=== PATIENT | female | born 1980 | race Caucasian/White ===

== ENCOUNTER 2016-09-15 14:37 | Emergency (ER) | payer OTHER, MEDICAID ==
[2016-09-15 15:01] VITALS: BP 110/76
--- NOTE | 2016-09-15 15:10 | EDM.PDOC ---
ED HPI Trauma - General Chief Complaint: Upper Extremity Injury/Pain Stated Complaint: JAMMED RT MIDDLE FINGER Time Seen by Provider: 09/15/16 15:03 Source: Reports: Patient, RN notes reviewed History Limitations: Reports: No limitations - History of Present Illness INITIAL COMMENTS - FREE TEXT/NARRATIVE: 36-year-old female presents emergency department for a complaint of pain to digit #3 right hand,she injured her finger at work unclear mechanism of action she is having difficulty with full laxation appreciates a mild amount of edema over the PIP joint Allergies/ADRs: Allergies varenicline tartrate [From Chantix] Adverse Reaction (Verified 07/08/16 06:14) Other gives patinet nightmares Home Medications: Ambulatory Orders NK [No Known Home Meds] 10/23/13 [Confirmed 07/08/16] Past Medical History HEENT History: Reports: Impaired vision Gastrointestinal History: Reports: Cholelithiasis 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 Social & Family History - Family History Family Medical History: Unobtainable - Tobacco Use Smoking Status *Q: Current Every Day Smoker Years of Tobacco use: 15 Packs/Tins Daily: 1 Used Tobacco, but Quit: No Month Tobacco Last Used: November Hand Smoke Exposure: No - Caffeine Use Caffeine Use: Reports: None - Alcohol Use Days Per Week of Alcohol Use: 0 - Recreational Drug Use Recreational Drug Use: No Review of Systems - Review of Systems Review Of Systems: See Below Musculoskeletal: Reports: joint pain (right digit #4 pain) Trauma Exam - Physical Exam Exam: See Below Text/Narrative:: examination right hand full range of motion of the wrist radial pulses 2+ to do appreciate some deformity and edema over the PIP joint digit #3 right hand she cannot fully flex the digit has full range of extension Course - Vital Signs Last Recorded V/S: Last Vital Signs Temp 98.4 F 09/15/16 15:00 Pulse 70 09/15/16 15:00 Resp 14 09/15/16 15:00 BP 110/76 09/15/16 15:00 Pulse Ox 96 09/15/16 15:00 - Orders/Labs/Meds Orders: Active Orders 24 hr Category Date Time Status Fingers Third Digit Rt F7 [CR] Stat Exams 09/15/16 15:13 Taken Departure - Departure Time of Disposition: 16:04 Disposition: Home, Self-Care 01 Condition: good Clinical Impression: Sprain of right middle finger Qualifiers: Encounter type: initial encounter Sprain of finger site: interphalangeal joint Qualified Code(s): S63.632A - Sprain of interphalangeal joint of right middle finger, initial encounter Forms: ED Department Discharge Additional Instructions: continue ajit taping until pain free, use Tylenol or Motrin as needed for pain control, Please followup with your primary care provider in 3-5 days if not better, please call return to the emergency department with worsening of symptoms. - My Orders Last 24 Hours: My Active Orders 09/15/16 15:13 Fingers Third Digit Rt F7 [CR] Stat - Assessment/Plan Last 24 Hours: My Active Orders 09/15/16 15:13 Fingers Third Digit Rt F7 [CR] Stat Plan: Assessment Acuity = acute Site and laterality = sprain digit #3 right hand PIP joint Etiology = secondary to trauma Manifestations = pain Location of injury = work Lab values = finger x-ray I did review films myself I cannot appreciate any acute process, the official read from radiology is pending Plan recommend Tylenol or Motrin as needed for pain control, Ajit taping followup with primary care 3-5 days no improvement Patient was in agreement with the plan all questions were answered, they were instructed to return to the emergency department or call for worsening symptoms. This note was dictated using basestone voice recognition software please call with any questions.
--- NOTE | 2016-09-17 08:50 | CR ---
Fingers Third Digit Rt F7 HISTORY: pain FINDINGS: No acute fracture or dislocation is identified. Bony architecture and joint spaces are preserved. Soft tissues are unremarkable. IMPRESSION: No acute right third finger abnormality identified.
== END 2016-09-15 16:09 | disposition home or self-care (01) ==
LOC: JP.ED 14:37
DX: S63.632A Sprain of interphalangeal joint of right middle finger, initial encounter (principal); F17.210 Nicotine dependence, cigarettes, uncomplicated; Z88.8 Allergy status to other drugs, medicaments and biological substances; Z90.49 Acquired absence of other specified parts of digestive tract; Z98.51 Tubal ligation status; Z98.890 Other specified postprocedural states; X58.XXXA Exposure to other specified factors, initial encounter
CPT/HCPCS: 73140-26-F7; 73140-F7; 99284

== ENCOUNTER 2016-11-15 10:03 | Observation (INO) | payer MEDICAID ==
[2016-11-15] MEDS ORDERED: Ondansetron 4 MG/2 ML SDV IVPUSH ONE ×2 (11:39→14:47)
[2016-11-15] MEDS ORDERED: HYDROmorphone 0.5 MG/0.5 ML Syringe IVPUSH ONE (11:39)
[2016-11-15] MEDS ORDERED: Sodium Chloride 0.9% 1,000 ML IV SCH ×2 (11:45→14:15)
[2016-11-15] MEDS ORDERED: HYDROmorphone 1 MG/ML Syringe IVPUSH ONE (13:57)
--- NOTE | 2016-11-15 13:58 | CR ---
Abdomen Series w Chest 1V HISTORY: Diarrhea, vomiting. COMPARISON: CT abdomen 08/15/2008 FINDINGS: Chest is clear. Cardiac size and pulmonary vessels normal. No effusions. Prior cholecystectomy. No bowel obstruction no free air. No suspicious calcifications. Impression: Negative chest and abdomen.
[2016-11-15] MEDS ORDERED: Sodium Chloride 0.9% 100 ML IV SCH (14:15)
[2016-11-15] MEDS ORDERED: Iopamidol 612 MG/ML 100 ML Bottle IV PRN (14:15)
[2016-11-15] MEDS ORDERED: Sodium Chloride 0.9% 10 ML Syringe FLUSH PRN ×2 (14:15→17:13)
--- NOTE | 2016-11-15 14:55 | CT ---
Abdomen Pelvis w Cont HISTORY: Abdominal pain on the right. Dose: Total DLP 584. COMPARISON: Prior CT scan 08/15/2008. FINDINGS: The liver is diffusely enlarged measuring 22 cm craniocaudal. The lower margin of the righ t hepatic lobe extends below the iliac crest which is a new finding from the previous CT scan. There is slightly inhomogeneous attenuation of the lower margin of the right hepatic lobe. No liver lesio ns seen. Prior cholecystectomy. There is some very mild nonspecific periportal edema. There is some borderline intra and extrahepatic bile duct dilatation however this may be normal for this patient i s postcholecystectomy. The spleen, pancreas, adrenal glands and abdominal aorta and kidneys appear normal. No bowel obstruc tion. The pelvis appears unremarkable. Impression: 1. Nonspecific hepatomegaly with some inhomogeneous attenuation to the lower margin of the right hep atic lobe. The hepatomegaly does appear to be a new finding from the prior CT scan of 2008. Consider nonspecific hepatitis. Would suggest follow-up CT scan in 4 months to reevaluate these findings. These findings were called to the emergency room physician at 2:45 PM hours
--- NOTE | 2016-11-15 15:13 | EDM.PDOC ---
[id number]: NAUSEA/ABD PAIN Time Seen by Provider: 11/15/16 10:40 Source of Information: Reports: Patient History Limitations: Reports: No Limitations - History of Present Illness INITIAL COMMENTS - FREE TEXT/NARRATIVE: Pt arrived with pain in upper abdomn and on the rt cva are. Onset: Sudden, Other (pt took a lexapro tab andit was after that that she developed acute pain in the upper abdoman and that has been persistent. ) Duration: Hour(s):, Getting Worse Location: Reports: Abdomen Associated Symptoms: Reports: No Other Symptoms, Other (pt has been having bms. 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: Musculoskeletal History: Reports: Back Pain, Chronic, Other (See Below) Other Musculoskeletal History: chronic knee pain Neurological History: Reports: Concussion, Migraines Psychiatric History: Reports: Anxiety - Infectious Disease History Infectious Disease History: Reports: Chicken Pox - Past Surgical History GI Surgical History: Reports: Cholecystectomy, Hernia Repair/Other Female Surgical History: Reports: Section, Tubal Ligation Musculoskeletal Surgical History: Reports: Arthroscopic Knee, Arthroscopic Procedure, Ganglion Cyst Social & Family History - Family History Family Medical History: Unobtainable - Tobacco Use Smoking Status *Q: Current Every Day Smoker Years of Tobacco use: 15 Packs/Tins Daily: 1 Used Tobacco, but Quit: No Month Tobacco Last Used: November Second Hand Smoke Exposure: No - Caffeine Use Caffeine Use: Reports: Soda - Alcohol Use Days Per Week of Alcohol Use: 0 - Recreational Drug Use Recreational Drug Use: No ED ROS GENERAL - Review of Systems Review Of Systems: See Below Constitutional: Reports: No Symptoms HEENT: Reports: No Symptoms Respiratory: Reports: No Symptoms Cardiovascular: Reports: No Symptoms Endocrine: Reports: No Symptoms GI/Abdominal: Reports: Abdominal Pain, Other ( this acutely started this am after she took a lexapro tab. ) : Reports: No Symptoms ED EXAM, GI/ABD - Physical Exam Exam: See Below Course - Vital Signs Last Recorded V/S: Last Vital Signs Temp 36.9 C 11/17/16 07:22 Pulse 50 L 11/17/16 07:22 Resp 16 11/17/16 07:22 BP 157/83 H 11/17/16 07:22 Pulse Ox 98 11/17/16 07:22 - Orders/Labs/Meds Labs: Laboratory Tests 11/15/16 11/15/16 11/15/16 Range/Units 11:02 11:44 11:44 WBC 8.1 (4.5-11.0) K/uL RBC 4.75 (3.30-5.50) M/uL Hgb 13.1 (12.0-15.0) g/dL Hct 39.7 (36.0-48.0) % MCV 84 (80-98) fL MCH 28 (27-31) pg MCHC 33 (32-36) % Plt Count 205 (150-400) K/uL Neut % (Auto) 62 (36-66) % Lymph % (Auto) 31 (24-44) % [place] % (Auto) 5 (2-6) % Eos % (Auto) 2 (2-4) % Baso % (Auto) 0 (0-1) % Sodium (140-148) mmol/L Potassium (3.6-5.2) mmol/L Chloride (100-108) mmol/L Carbon Dioxide (21-32) mmol/L Anion Gap (5.0-14.0) mmol/L BUN (7-18) mg/dL Creatinine (0.6-1.0) mg/dL Est Cr Clr Drug Dosing mL/min Estimated GFR (MDRD) (>60) Glucose (74-106) mg/dL Calcium (8.5-10.1) mg/dL Total Bilirubin (0.2-1.0) mg/dL AST (15-37) U/L ALT (12-78) U/L Alkaline Phosphatase (46-116) U/L C-Reactive Protein (0.0-0.3) mg/dL Total Protein (6.4-8.2) g/dL Albumin (3.4-5.0) g/dL Globulin (2.3-3.5) g/dL Albumin/Globulin Ratio (1.2-2.2) Lipase 154 (73-393) U/L Urine Color Yellow Urine Appearance Clear Urine pH 6.5 (4.5-8.0) Ur Specific [place] 1.010 (1.008-1.030) Urine Protein Negative (NEGATIVE) mg/dL Urine Glucose (UA) Normal (NEGATIVE) mg/dL Urine Ketones Negative (NEGATIVE) mg/dL Urine Occult Blood Negative (NEGATIVE) Urine Nitrite Negative (NEGATIVE) Urine Bilirubin Negative (NEGATIVE) Urine Urobilinogen Normal (NORMAL) mg/dL Ur Leukocyte Esterase Negative (NEGATIVE) Urine RBC 0-5 (0-5) Urine WBC 0-5 (0-5) Ur Epithelial Cells Few Amorphous Sediment Not seen Urine Bacteria Few Urine Mucus Not seen 11/15/16 11/15/16 Range/Units 11:44 13:59 WBC (4.5-11.0) K/uL RBC (3.30-5.50) M/uL Hgb (12.0-15.0) g/dL Hct (36.0-48.0) % MCV (80-98) fL MCH (27-31) pg MCHC (32-36) % Plt Count (150-400) K/uL Neut % (Auto) (36-66) % Lymph % (Auto) (24-44) % [place] % (Auto) (2-6) % Eos % (Auto) (2-4) % Baso % (Auto) (0-1) % Sodium 141 (140-148) mmol/L Potassium 4.2 (3.6-5.2) mmol/L Chloride 106 (100-108) mmol/L Carbon Dioxide 25 (21-32) mmol/L Anion Gap 9.8 (5.0-14.0) mmol/L BUN 7 (7-18) mg/dL Creatinine 0.7 (0.6-1.0) mg/dL Est Cr Clr Drug Dosing 93.68 mL/min Estimated GFR (MDRD) > 60 (>60) Glucose 95 (74-106) mg/dL Calcium 8.9 (8.5-10.1) mg/dL Total Bilirubin 0.5 (0.2-1.0) mg/dL AST 12 L (15-37) U/L ALT 12 (12-78) U/L Alkaline Phosphatase 63 (46-116) U/L C-Reactive Protein 0.26 (0.0-0.3) mg/dL Total Protein 6.9 (6.4-8.2) g/dL Albumin 3.8 (3.4-5.0) g/dL Globulin 3.1 (2.3-3.5) g/dL Albumin/Globulin Ratio 1.2 (1.2-2.2) Lipase (73-393) U/L Urine Color Urine Appearance Urine pH (4.5-8.0) Ur Specific [place] (1.008-1.030) Urine Protein (NEGATIVE) mg/dL Urine Glucose (UA) (NEGATIVE) mg/dL Urine Ketones (NEGATIVE) mg/dL Urine Occult Blood (NEGATIVE) Urine Nitrite (NEGATIVE) Urine Bilirubin (NEGATIVE) Urine Urobilinogen (NORMAL) mg/dL Ur Leukocyte Esterase (NEGATIVE) Urine RBC (0-5) Urine WBC (0-5) Ur Epithelial Cells Amorphous Sediment Urine Bacteria Urine Mucus Meds: Medications Discontinued Medications Generic Name Dose Route Start Last Admin Trade Name Freq PRN Reason Stop Dose Admin Acetaminophen 650 mg 11/15/16 17:13 11/17/16 10:33 Tylenol PO 650 mg Q4H PRN Administration Pain (Mild 1-3)/fever Bupivacaine HCl Confirm 11/16/16 08:45 11/16/16 13:30 Marcaine 0.5% Administered 11/16/16 08:46 3.5 ml Dose Administration 50 ml .ROUTE .STK-MED ONE Al Hydroxide/Mg Hydroxide 15 0 ml 11/15/16 15:55 11/15/16 16:24 ml/ Lidocaine HCl 15 ml PO 11/15/16 15:56 15 ml ONETIME ONE Administration Fentanyl Confirm 11/16/16 11:18 Sublimaze Administered 11/16/16 11:19 Dose 100 mcg .ROUTE .STK-MED ONE Hydromorphone HCl 0.5 mg 11/15/16 11:39 11/15/16 12:08 Dilaudid IVPUSH 11/15/16 11:40 0.5 mg ONETIME ONE Administration Hydromorphone HCl 1 mg 11/15/16 13:57 11/15/16 14:03 Dilaudid IVPUSH 11/15/16 13:58 1 mg ONETIME ONE Administration Hydromorphone HCl 0.5 mg 11/15/16 17:13 11/16/16 12:13 Dilaudid IVPUSH 0.5 mg Q3H PRN Administration Pain Hydromorphone HCl 0 mg 11/16/16 12:29 11/16/16 12:38 Dilaudid 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 In Ns 30 Ml IV 15 mg ASDIRECTED PRN Administration 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 CONTROL Protocol Sodium Chloride 1,000 mls @ 999 mls/hr 11/15/16 11:45 11/15/16 12:03 Normal Saline IV 999 mls/hr ASDIRECTED CHANI Administration Sodium Chloride 100 mls @ 3.5 mls/sec 11/15/16 14:15 11/15/16 14:29 Normal Saline IV 11/15/16 14:16 3 mls/sec ASDIRECTED CHANI Administration Sodium Chloride 1,000 mls @ 500 mls/hr 11/15/16 14:15 11/15/16 14:45 Normal Saline IV 500 mls/hr ASDIRECTED CHANI Administration Sodium Chloride 1,000 mls @ 125 mls/hr 11/15/16 17:13 11/17/16 07:37 Normal Saline IV 125 mls/hr ASDIRECTED CHANI Administration Iopamidol 100 ml 11/15/16 14:15 11/15/16 14:29 Isovue-300 (61%) IV 11/16/16 14:16 100 ml . DIRECTED PRN Administration RADIOLOGY EXAM Lidocaine/Epinephrine Confirm 11/16/16 08:45 11/16/16 13:30 Xylocaine 1% With Epinephrine 1:100,000 Administered 11/16/16 08:46 3.5 ml Dose Administration 50 ml .ROUTE .STK-MED ONE Lorazepam 1 mg 11/16/16 14:51 11/16/16 15:03 Ativan IVPUSH 11/16/16 14:52 1 mg ONETIME ONE Administration Lorazepam 0.5 - 1 mg 11/16/16 14:51 11/16/16 23:32 Ativan IVPUSH 1 mg Q4H PRN Administration Nausea/Vomiting Metoclopramide HCl 10 mg 11/16/16 20:00 11/17/16 07:31 Reglan IVPUSH 10 mg Q6H CHANI Administration Midazolam HCl Confirm 11/16/16 11:19 Versed 1 Mg/Ml Administered 11/16/16 11:20 Dose 2 mg .ROUTE .STK-MED ONE Naloxone HCl 0.1 mg 11/16/16 12:29 Narcan IV ASDIRECTED PRN decreased respiratory rate Ondansetron HCl 4 mg 11/15/16 11:39 11/15/16 12:04 Zofran IVPUSH 11/15/16 11:40 4 mg ONETIME ONE Administration Ondansetron HCl 4 mg 11/15/16 14:47 11/15/16 14:59 Zofran IVPUSH 11/15/16 14:48 4 mg ONETIME ONE Administration Ondansetron HCl 4 mg 11/15/16 17:13 11/16/16 19:14 Zofran IV 4 mg Q4H PRN Administration Nausea/Vomiting Oxycodone HCl 5 mg 11/15/16 17:13 11/17/16 10:33 Oxycodone PO 5 mg Q4H PRN Administration Pain (moderate 4-6) Pantoprazole Sodium 40 mg 11/15/16 15:55 11/15/16 16:24 Protonix Iv IVPUSH 11/15/16 15:56 40 mg ONETIME ONE Administration Pantoprazole Sodium 40 mg 11/16/16 04:00 11/17/16 03:33 Protonix Iv IVPUSH 40 mg Q12H CHANI Administration Propofol Confirm 11/16/16 11:18 Diprivan 20 Ml Administered 11/16/16 11:19 Dose 200 mg .ROUTE .STK-MED ONE Sodium Chloride 10 ml 11/15/16 14:15 11/15/16 14:29 Saline Flush FLUSH 11/15/16 23:00 10 ml ASDIRECTED PRN Administration Keep Vein Open Sodium Chloride 10 ml 11/15/16 17:13 Saline Flush FLUSH ASDIRECTED PRN Keep Vein Open Departure - Departure Time of Disposition: 07:25 Disposition: Admitted As Inpatient 68 Clinical Impression: Abdominal pain - Discharge Information
[2016-11-15] MEDS ORDERED: Pantoprazole 40 MG Vial IVPUSH ONE (15:55)
[2016-11-15] MEDS ORDERED: Alum Hydrox/Mag Hydrox/Simeth 15 ML, Lidocaine 2% 15 ML PO ONE ×2 (15:55)
--- NOTE | 2016-11-15 16:44 | PCM.HP ---
H&P History of Present Illness - General Date of Service: 11/15/16 Admit Problem/Dx: Source of Information: Patient, Family, Provider, RN Notes Reviewed History Limitations: Reports: No Limitations - History of Present Illness Initial Comments - Free Text/Narative: This patient is a 36-year-old woman who is admitted to observation status for further evaluation and management of right upper quadrant abdominal pain. She felt well until this morning when she noted abrupt onset of moderate to severe pain occurring in the right upper quadrant, pain is described as an intense ache that does not radiate. She noted no significant precipitating or relieving factors. Evaluation in the emergency department vital signs are stable and she is afebrile. CT scan of the abdomen was obtained and other than benign liver enlargement no other significant abnormalities were identified. Pain is better controlled after having received IV narcotics in the emergency department. 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: Reports: Musculoskeletal History: Reports: Back Pain, Chronic, Other (See Below) Other Musculoskeletal History: chronic knee pain Neurological History: Reports: Concussion, Migraines Psychiatric History: Reports: Anxiety - Infectious Disease History Infectious Disease History: Reports: Chicken Pox - Past Surgical History GI Surgical History: Reports: Cholecystectomy, Hernia Repair/Other Female Surgical History: Reports: Section, Tubal Ligation Musculoskeletal Surgical History: Reports: Arthroscopic Knee, Arthroscopic Procedure, Ganglion Cyst Social & Family History - Family History Family Medical History: Unobtainable - Tobacco Use Smoking Status *Q: Current Every Day Smoker Years of Tobacco use: 15 Packs/Tins Daily: 1 Used Tobacco, but Quit: No Month Tobacco Last Used: November Second Hand Smoke Exposure: No - Caffeine Use Caffeine Use: Reports: Soda - Alcohol Use Days Per Week of Alcohol Use: 0 - Recreational Drug Use Recreational Drug Use: No H&P Review of Systems - Review of Systems: Review Of Systems: See Below General: Reports: No Symptoms HEENT: Reports: No Symptoms Pulmonary: Reports: No Symptoms Cardiovascular: Reports: No Symptoms Gastrointestinal: Reports: Abdominal Pain, Nausea, Vomiting. Denies: Black Stool, Bloody Stool, Constipation, Diarrhea, Decreased Appetite, Difficulty Swallowing, Distension Genitourinary: Reports: No Symptoms Musculoskeletal: Reports: No Symptoms Skin: Reports: No Symptoms Psychiatric: Reports: No Symptoms Neurological: Reports: No Symptoms Hematologic/Lymphatic: Reports: No Symptoms Immunologic: Reports: No Symptoms Exam - Exam Exam: See Below - Vital Signs Vital Signs: Last Vital Signs Temp 97.5 F 11/15/16 14:58 Pulse 55 L 11/15/16 14:58 Resp 16 11/15/16 14:58 BP 124/58 L 11/15/16 14:58 Pulse Ox 98 11/15/16 14:58 Weight: 145 lb - Exam Quality Assessment: No: Supplemental Oxygen, DVT Prophylaxis General: Alert, Oriented, Cooperative, Mild Distress HEENT: Conjunctiva Clear, EOMI, Hearing Intact, Mucosa Moist & [place], Nares Patent, Normal Nasal Septum, Posterior Pharynx Clear, Pupils Equal, Pupils Reactive Neck: Supple, Trachea Midline, +2 Carotid Pulse wo Bruit Lungs: Clear to Auscultation, Normal Respiratory Effort Cardiovascular: Regular Rate, Regular Rhythm, Normal S1, Normal S2. No: Systolic Murmur, Diastolic Murmur Abdomen: Normal Bowel Sounds, Soft, Tenderness. No: Organomegaly, Peritoneal Signs, Distention, Guarding, Rigidity, Rebound Back Exam: Normal Inspection, Full Range of Motion, NT Extremities: 3, Normal Inspection, 10 Skin: Warm, Dry, Intact Neurological: Cranial Nerves Intact, Strength Equal Bilateral, Normal Speech, Normal Tone, Sensation Intact. No: Focal Deficit Neuro Extensive - Mental Status: Alert, Oriented x3, Normal Mood/Affect, Normal Cognition, Memory Intact - Patient Data Lab Results last 24 hrs: Laboratory Results - last 24 hr 11/15/16 11/15/16 11/15/16 Range/Units 11:02 11:44 11:44 WBC 8.1 (4.5-11.0) K/uL RBC 4.75 (3.30-5.50) M/uL Hgb 13.1 (12.0-15.0) g/dL Hct 39.7 (36.0-48.0) % MCV 84 (80-98) fL MCH 28 (27-31) pg MCHC 33 (32-36) % Plt Count 205 (150-400) K/uL Neut % (Auto) 62 (36-66) % Lymph % (Auto) 31 (24-44) % [place] % (Auto) 5 (2-6) % Eos % (Auto) 2 (2-4) % Baso % (Auto) 0 (0-1) % Sodium (140-148) mmol/L Potassium (3.6-5.2) mmol/L Chloride (100-108) mmol/L Carbon Dioxide (21-32) mmol/L Anion Gap (5.0-14.0) mmol/L BUN (7-18) mg/dL Creatinine (0.6-1.0) mg/dL Est Cr Clr Drug Dosing mL/min Estimated GFR (MDRD) (>60) Glucose (74-106) mg/dL Calcium (8.5-10.1) mg/dL Total Bilirubin (0.2-1.0) mg/dL AST (15-37) U/L ALT (12-78) U/L Alkaline Phosphatase (46-116) U/L C-Reactive Protein (0.0-0.3) mg/dL Total Protein (6.4-8.2) g/dL Albumin (3.4-5.0) g/dL Globulin (2.3-3.5) g/dL Albumin/Globulin Ratio (1.2-2.2) Lipase 154 (73-393) U/L Urine Color Yellow Urine Appearance Clear Urine pH 6.5 (4.5-8.0) Ur Specific [place] 1.010 (1.008-1.030) Urine Protein Negative (NEGATIVE) mg/dL Urine Glucose (UA) Normal (NEGATIVE) mg/dL Urine Ketones Negative (NEGATIVE) mg/dL Urine Occult Blood Negative (NEGATIVE) Urine Nitrite Negative (NEGATIVE) Urine Bilirubin Negative (NEGATIVE) Urine Urobilinogen Normal (NORMAL) mg/dL Ur Leukocyte Esterase Negative (NEGATIVE) Urine RBC 0-5 (0-5) Urine WBC 0-5 (0-5) Ur Epithelial Cells Few Amorphous Sediment Not seen Urine Bacteria Few Urine Mucus Not seen 11/15/16 11/15/16 Range/Units 11:44 13:59 WBC (4.5-11.0) K/uL RBC (3.30-5.50) M/uL Hgb (12.0-15.0) g/dL Hct (36.0-48.0) % MCV (80-98) fL MCH (27-31) pg MCHC (32-36) % Plt Count (150-400) K/uL Neut % (Auto) (36-66) % Lymph % (Auto) (24-44) % [place] % (Auto) (2-6) % Eos % (Auto) (2-4) % Baso % (Auto) (0-1) % Sodium 141 (140-148) mmol/L Potassium 4.2 (3.6-5.2) mmol/L Chloride 106 (100-108) mmol/L Carbon Dioxide 25 (21-32) mmol/L Anion Gap 9.8 (5.0-14.0) mmol/L BUN 7 (7-18) mg/dL Creatinine 0.7 (0.6-1.0) mg/dL Est Cr Clr Drug Dosing 93.68 mL/min Estimated GFR (MDRD) > 60 (>60) Glucose 95 (74-106) mg/dL Calcium 8.9 (8.5-10.1) mg/dL Total Bilirubin 0.5 (0.2-1.0) mg/dL AST 12 L (15-37) U/L ALT 12 (12-78) U/L Alkaline Phosphatase 63 (46-116) U/L C-Reactive Protein 0.26 (0.0-0.3) mg/dL Total Protein 6.9 (6.4-8.2) g/dL Albumin 3.8 (3.4-5.0) g/dL Globulin 3.1 (2.3-3.5) g/dL Albumin/Globulin Ratio 1.2 (1.2-2.2) Lipase (73-393) U/L Urine Color Urine Appearance Urine pH (4.5-8.0) Ur Specific [place] (1.008-1.030) Urine Protein (NEGATIVE) mg/dL Urine Glucose (UA) (NEGATIVE) mg/dL Urine Ketones (NEGATIVE) mg/dL Urine Occult Blood (NEGATIVE) Urine Nitrite (NEGATIVE) Urine Bilirubin (NEGATIVE) Urine Urobilinogen (NORMAL) mg/dL Ur Leukocyte Esterase (NEGATIVE) Urine RBC (0-5) Urine WBC (0-5) Ur Epithelial Cells Amorphous Sediment Urine Bacteria Urine Mucus Result Diagrams: 11/15/16 11:44 11/15/16 11:44 *Q Meaningful Use (ADM) - VTE *Q VTE Criteria *Q: - VTE Risk Assess *Q Each Risk Factor Represents 1 Point: None Total Score 1 Point Risk Factors: 0 Each Risk Factor Represents 2 Points: None Total Score 2 Point Risk Factors: 0 Each Risk Factor Represents 3 Points: None Total Score 3 Point Risk Factors: 0 Each Risk Factor Represents 5 Points: None Total Score 5 Point Risk Factors: 0 Venous Thromboembolism Risk Factor Score *Q: 0 - Stroke *Q Stroke Criteria *Q: - AMI *Q AMI Criteria *Q: Problem List Initiated/Reviewed/Updated: Yes Orders Last 24hrs: Active Orders 24 hr Category Date Time Status Patient Status Manage Transfer [TRANSFER] Routine ADT 11/15/16 16:26 Ordered Iopamidol [Isovue-300 (61%)] Med 11/15/16 14:15 Active 100 ml IV . DIRECTED PRN Sodium Chloride 0.9% [Normal Saline] 1,000 ml Med 11/15/16 11:45 Active IV ASDIRECTED Sodium Chloride 0.9% [Normal Saline] 1,000 ml Med 11/15/16 14:15 Active IV ASDIRECTED Sodium Chloride 0.9% [Saline Flush] Med 11/15/16 14:15 Active 10 ml FLUSH ASDIRECTED PRN Resuscitation Status Routine Resus Stat 11/15/16 16:28 Ordered Medication Orders Sodium Chloride (Normal Saline) 1,000 mls @ 999 mls/hr IV ASDIRECTED [facility] Last Admin: 11/15/16 12:03 Dose: 999 mls/hr Sodium Chloride (Normal Saline) 1,000 mls @ 500 mls/hr IV ASDIRECTED [facility] Last Admin: 11/15/16 14:45 Dose: 500 mls/hr Iopamidol (Isovue-300 (61%)) 100 ml IV . DIRECTED PRN PRN Reason: RADIOLOGY EXAM Stop: 11/16/16 14:16 Last Admin: 11/15/16 14:29 Dose: 100 ml Sodium Chloride (Saline Flush) 10 ml FLUSH ASDIRECTED PRN PRN Reason: Keep Vein Open Stop: 11/15/16 23:00 Last Admin: 11/15/16 14:29 Dose: 10 ml Assessment/Plan Comment:: ASSESSMENT AND PLAN RIGHT UPPER QUADRANT ABDOMINAL PAIN-abrupt onset of pain this morning of moderate to severe intensity. Evaluation including laboratory studies and CT scan are unremarkable for specific etiology. She has had associated nausea and vomiting. Status post cholecystectomy several years ago. -Antiemetic therapy and pain medication as needed -Protonix orally milligrams IV twice daily -N.p.o. -Consult Dr. Barron for EGD in the a.m. MAINTENANCE ISSUES -DVT prophylaxis; not required -GI prophylaxis; Protonix as above -Villalba catheter; not indicated -Nutrition; n.p.o. -Nicotinic dependence; 21 mg nicotinic patch CODE STATUS-FULL CODE ADMISSION STATUS-this patient will be admitted to observation status, expect no more than a one night hospital stay for evaluation and management of problems as outlined above. DISPOSITION-anticipate discharge to home after the hospital stay. PRIMARY CARE PROVIDER-
[2016-11-15] MEDS: Sodium Chloride 0.9% 1,000 ML IV SCH (17:34)
[2016-11-15] MEDS: Acetaminophen 325 MG Tab PO PRN (17:34)
[2016-11-15] MEDS: oxyCODONE 5 MG Tab PO PRN ×2 (17:34→21:23)
[2016-11-15] MEDS: HYDROmorphone 0.5 MG/0.5 ML Syringe IVPUSH PRN ×2 (18:12→21:23)
[2016-11-15] MEDS: Ondansetron 4 MG/2 ML SDV IV PRN (19:22)
[2016-11-16] MEDS: Acetaminophen 325 MG Tab PO PRN ×2 (01:36→07:09)
[2016-11-16] MEDS: HYDROmorphone 0.5 MG/0.5 ML Syringe IVPUSH PRN ×4 (01:36→12:13)
[2016-11-16] MEDS: oxyCODONE 5 MG Tab PO PRN ×2 (01:36→07:08)
[2016-11-16] MEDS: Sodium Chloride 0.9% 1,000 ML IV SCH ×4 (01:38→23:25)
[2016-11-16] MEDS: Pantoprazole 40 MG Vial IVPUSH SCH ×2 (05:19→17:36)
[2016-11-16] MEDS: Ondansetron 4 MG/2 ML SDV IV PRN ×3 (07:08→19:14)
--- NOTE | 2016-11-16 08:17 | PCM.CONS ---
H&P History of Present Illness - General Admit Problem/Dx: Source of Information: Patient History Limitations: Reports: No Limitations - History of Present Illness Initial Comments - Free Text/Narative: Irene states she was feeling good all day. She took a Lexapro for the first time and developed severe right upper quadrant abdominal pain that brought her to the ED. A CT revealed an enlarged liver. She continues to have right upper quadrant abdominal pain that comes and goes. Symptom Onset Date: 11/15/16 Quality: Reports: Pressure, Sharp, Stabbing Improves with: Reports: Medication Worsens with: Reports: None Associated Symptoms: Reports: No Other Symptoms Bilateral Upper Abdominal Pain Score (Numeric/FACES): 4 - Related Data Allergies/Adverse Reactions: Allergies Allergy/AdvReac Type Severity Reaction Status Date / Time varenicline tartrate AdvReac Other Verified 11/15/16 10:53 [From Chantix] Home Medications: Home Meds Escitalopram [Lexapro] mg PO DAILY 11/15/16 [History] Past Medical History HEENT History: Reports: Impaired Vision Gastrointestinal History: Reports: Cholelithiasis Genitourinary History: Reports: None 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: Musculoskeletal History: Reports: Back Pain, Chronic, Other (See Below) Other Musculoskeletal History: chronic knee pain Neurological History: Reports: Concussion, Migraines Psychiatric History: Reports: Anxiety - Infectious Disease History Infectious Disease History: Reports: Chicken Pox - Past Surgical History GI Surgical History: Reports: Cholecystectomy, Hernia Repair/Other Female Surgical History: Reports: Section, Tubal Ligation Musculoskeletal Surgical History: Reports: Arthroscopic Knee, Arthroscopic Procedure, Ganglion Cyst Social & Family History - Family History Family Medical History: Unobtainable - Tobacco Use Smoking Status *Q: Current Every Day Smoker Years of Tobacco use: 20 Packs/Tins Daily: 1 Used Tobacco, but Quit: No Month Tobacco Last Used: November Second Hand Smoke Exposure: Yes - Caffeine Use Caffeine Use: Reports: Soda - Alcohol Use Days Per Week of Alcohol Use: 0 - Recreational Drug Use Recreational Drug Use: No H&P Review of Systems - Review of Systems: Review Of Systems: See Below General: Reports: Fatigue, Night Sweats HEENT: Reports: No Symptoms Pulmonary: Reports: No Symptoms Cardiovascular: Reports: No Symptoms Gastrointestinal: Reports: Abdominal Pain Genitourinary: Reports: No Symptoms, Dysmenorrhea Skin: Reports: No Symptoms Psychiatric: Reports: No Symptoms Neurological: Reports: No Symptoms Hematologic/Lymphatic: Reports: No Symptoms Immunologic: Reports: No Symptoms Exam - Exam Exam: See Below - Vital Signs Vital Signs: Last Vital Signs Temp 97.5 F 11/16/16 06:59 Pulse 52 L 11/16/16 06:59 Resp 18 11/16/16 06:59 BP 159/83 H 11/16/16 06:59 Pulse Ox 99 11/16/16 06:59 Weight: 145 lb - Exam Quality Assessment: DVT Prophylaxis General: Alert, Oriented, Mild Distress HEENT: PERRLA Neck: Supple Lungs: Clear to Auscultation, Normal Respiratory Effort Cardiovascular: Regular Rate, Regular Rhythm Abdomen: Soft, Guarding (right upper quadrant ) (Female) Exam: Deferred Rectal (Female) Exam: Deferred Back Exam: Normal Inspection, Full Range of Motion Extremities: Normal Inspection Skin: Warm, Dry, Intact Neurological: Cranial Nerves Intact, Reflexes Equal Bilateral Neuro Extensive - Mental Status: Alert, Oriented x3, Normal Mood/Affect Neuro Extensive - Motor, Sensory, Reflexes: CN II-XII Intact, Normal Gait, Normal Reflexes Psychiatric: Alert, Normal Affect, Normal Mood - Patient Data Lab Results last 24 hrs: Laboratory Results - last 24 hr 11/16/16 11/16/16 Range/Units 05:43 05:43 WBC 6.6 (4.5-11.0) K/uL RBC 4.12 (3.30-5.50) M/uL Hgb 11.3 L (12.0-15.0) g/dL Hct 35.2 L (36.0-48.0) % MCV 85 (80-98) fL MCH 27 (27-31) pg MCHC 32 (32-36) % Plt Count 168 (150-400) K/uL Neut % (Auto) 47 (36-66) % Lymph % (Auto) 44 (24-44) % [place] % (Auto) 6 (2-6) % Eos % (Auto) 3 (2-4) % Baso % (Auto) 0 (0-1) % Sodium 141 (140-148) mmol/L Potassium 3.8 (3.6-5.2) mmol/L Chloride 110 H (100-108) mmol/L Carbon Dioxide 24 (21-32) mmol/L Anion Gap 10.8 (5.0-14.0) mmol/L BUN 8 (7-18) mg/dL Creatinine 0.8 (0.6-1.0) mg/dL Est Cr Clr Drug Dosing 81.97 mL/min Estimated GFR (MDRD) > 60 (>60) Glucose 88 (74-106) mg/dL Calcium 7.6 L (8.5-10.1) mg/dL Total Bilirubin 0.6 (0.2-1.0) mg/dL AST 29 D (15-37) U/L ALT 24 D (12-78) U/L Alkaline Phosphatase 66 (46-116) U/L Total Protein 5.4 L (6.4-8.2) g/dL Albumin 2.9 L (3.4-5.0) g/dL Globulin 2.5 (2.3-3.5) g/dL Albumin/Globulin Ratio 1.2 (1.2-2.2) Result Diagrams: 11/16/16 05:43 11/16/16 05:43 Consult PN Assessment/Plan POD#: 0 Procedures: Procedures Problem List Initiated/Reviewed/Updated: Yes My Orders last 24 hours: My Active Orders 11/16/16 08:08 Verify Patient Consent Obtain [RC] ASDIRECTED 11/16/16 08:09 Communication Order [RC] STAT 11/17/16 04:00 CBC W/O DIFF,HEMOGRAM [HEME] Timed COMPREHENSIVE METABOLIC PN,CMP [CHEM] Timed MAGNESIUM [CHEM] Timed PHOSPHORUS [CHEM] Timed Plan: Assessment: right upper quadrant abdominal pain enlarged liver Plan: EGD with possible biopsies and Liver Biopsy today Case to follow NPO Check CMP in AM Thank you for this consultation Taya Reilly
[2016-11-16] MEDS ORDERED: Bupivacaine 0.5% 50 ML MDV ONE (08:45)
[2016-11-16] MEDS ORDERED: Lidocaine 1% with EPINEPHrine 1:100,000 50 ML MDV ONE (08:45)
[2016-11-16] MEDS ORDERED: Propofol 200 MG/20 ML SDV ONE (11:18)
[2016-11-16] MEDS ORDERED: fentaNYL 100 MCG/2 ML SDV ONE (11:18)
[2016-11-16] MEDS ORDERED: Midazolam 1 MG/ML 2 ML SDV ONE (11:19)
[2016-11-16] MEDS ORDERED: HYDROmorphone/Normal Saline 15 MG/30 ML PCA IV PRN (12:29)
[2016-11-16] MEDS ORDERED: Naloxone 0.4 MG/ML SDV IV PRN (12:29)
--- NOTE | 2016-11-16 12:46 | PCM.PN ---
- General Info Date of Service: 11/16/16 Functional Status: Denies: pain controlled - Review of Systems General: Denies: Fever Gastrointestinal: Reports: Abdominal pain Systems Review Comment:: No acute events overnight. After she returned from her EGD and liver biopsy she reported severe right upper quadrant abdominal pain and nausea with vomiting. Pain was much worse than that which brought her in. Mild gastritis and duodenitis was seen on the EGD. She has not had any fevers. No diarrhea. - Patient Data Vitals - most recent: Last Vital Signs Temp 36.7 C 11/16/16 10:44 Pulse 64 11/16/16 10:44 Resp 18 11/16/16 10:44 BP 99/49 L 11/16/16 10:44 Pulse Ox 97 11/16/16 10:44 Weight - most recent: 65.771 kg I&O - last 24 hours: Intake & Output 11/15/16 11/16/16 11/16/16 22:59 06:59 14:59 Intake Total 1378 Output Total 200 Balance 1378 -200 Lab Results last 24 hrs: Laboratory Results - last 24 hr 11/16/16 11/16/16 Range/Units 05:43 05:43 WBC 6.6 (4.5-11.0) K/uL RBC 4.12 (3.30-5.50) M/uL Hgb 11.3 L (12.0-15.0) g/dL Hct 35.2 L (36.0-48.0) % MCV 85 (80-98) fL MCH 27 (27-31) pg MCHC 32 (32-36) % Plt Count 168 (150-400) K/uL Neut % (Auto) 47 (36-66) % Lymph % (Auto) 44 (24-44) % [place] % (Auto) 6 (2-6) % Eos % (Auto) 3 (2-4) % Baso % (Auto) 0 (0-1) % Sodium 141 (140-148) mmol/L Potassium 3.8 (3.6-5.2) mmol/L Chloride 110 H (100-108) mmol/L Carbon Dioxide 24 (21-32) mmol/L Anion Gap 10.8 (5.0-14.0) mmol/L BUN 8 (7-18) mg/dL Creatinine 0.8 (0.6-1.0) mg/dL Est Cr Clr Drug Dosing 81.97 mL/min Estimated GFR (MDRD) > 60 (>60) Glucose 88 (74-106) mg/dL Calcium 7.6 L (8.5-10.1) mg/dL Total Bilirubin 0.6 (0.2-1.0) mg/dL AST 29 D (15-37) U/L ALT 24 D (12-78) U/L Alkaline Phosphatase 66 (46-116) U/L Total Protein 5.4 L (6.4-8.2) g/dL Albumin 2.9 L (3.4-5.0) g/dL Globulin 2.5 (2.3-3.5) g/dL Albumin/Globulin Ratio 1.2 (1.2-2.2) Med Orders - Current: Current Medications Acetaminophen (Tylenol) 650 mg PO Q4H PRN PRN Reason: Pain (Mild 1-3)/fever Last Admin: 11/16/16 07:09 Dose: 650 mg Hydromorphone HCl (Dilaudid) 0.5 mg IVPUSH Q3H PRN PRN Reason: Pain Last Admin: 11/16/16 07:57 Dose: 0.5 mg Hydromorphone HCl (Dilaudid [place] 15 Mg In Ns 30 Ml) 0 mg IV ASDIRECTED PRN; Protocol PRN Reason: LEGAL COUNSEL PAIN CONTROL Last Admin: 11/16/16 12:38 Dose: 15 mg Sodium Chloride (Normal Saline) 1,000 mls @ 125 mls/hr IV ASDIRECTED [facility] Last Admin: 11/16/16 09:47 Dose: 125 mls/hr Naloxone HCl (Narcan) 0.1 mg IV ASDIRECTED PRN PRN Reason: decreased respiratory rate Ondansetron HCl (Zofran) 4 mg IV Q4H PRN PRN Reason: Nausea/Vomiting Last Admin: 11/16/16 07:08 Dose: 4 mg Oxycodone HCl (Oxycodone) 5 mg PO Q4H PRN PRN Reason: Pain (moderate 4-6) Last Admin: 11/16/16 07:08 Dose: 5 mg Pantoprazole Sodium (Protonix Iv) 40 mg IVPUSH Q12H [facility]ANI Last Admin: 11/16/16 05:19 Dose: 40 mg Sodium Chloride (Saline Flush) 10 ml FLUSH ASDIRECTED PRN PRN Reason: Keep Vein Open Discontinued Medications Bupivacaine HCl (Marcaine 0.5%) Confirm Administered Dose 50 ml .ROUTE .STK-MED ONE Stop: 11/16/16 08:46 Al Hydroxide/Mg Hydroxide 15 (ml/ Lidocaine HCl 15 ml) 0 ml PO ONETIME ONE Stop: 11/15/16 15:56 Last Admin: 11/15/16 16:24 Dose: 15 ml Fentanyl (Sublimaze) Confirm Administered Dose 100 mcg .ROUTE .STK-MED ONE Stop: 11/16/16 11:19 Hydromorphone HCl (Dilaudid) 0.5 mg IVPUSH ONETIME ONE Stop: 11/15/16 11:40 Last Admin: 11/15/16 12:08 Dose: 0.5 mg Hydromorphone HCl (Dilaudid) 1 mg IVPUSH ONETIME ONE Stop: 11/15/16 13:58 Last Admin: 11/15/16 14:03 Dose: 1 mg Sodium Chloride (Normal Saline) 1,000 mls @ 999 mls/hr IV ASDIRECTED [facility] Last Admin: 11/15/16 12:03 Dose: 999 mls/hr Sodium Chloride (Normal Saline) 100 mls @ 3.5 mls/sec IV ASDIRECTED [facility] Stop: 11/15/16 14:16 Last Admin: 11/15/16 14:29 Dose: 3 mls/sec Sodium Chloride (Normal Saline) 1,000 mls @ 500 mls/hr IV ASDIRECTED [facility] Last Admin: 11/15/16 14:45 Dose: 500 mls/hr Iopamidol (Isovue-300 (61%)) 100 ml IV . DIRECTED PRN PRN Reason: RADIOLOGY EXAM Stop: 11/16/16 14:16 Last Admin: 11/15/16 14:29 Dose: 100 ml Lidocaine/Epinephrine (Xylocaine 1% With Epinephrine 1:100,000) Confirm Administered Dose 50 ml .ROUTE .STK-MED ONE Stop: 11/16/16 08:46 Midazolam HCl (Versed 1 Mg/Ml) Confirm Administered Dose 2 mg .ROUTE .STK-MED ONE Stop: 11/16/16 11:20 Ondansetron HCl (Zofran) 4 mg IVPUSH ONETIME ONE Stop: 11/15/16 11:40 Last Admin: 11/15/16 12:04 Dose: 4 mg Ondansetron HCl (Zofran) 4 mg IVPUSH ONETIME ONE Stop: 11/15/16 14:48 Last Admin: 11/15/16 14:59 Dose: 4 mg Pantoprazole Sodium (Protonix Iv) 40 mg IVPUSH ONETIME ONE Stop: 11/15/16 15:56 Last Admin: 11/15/16 16:24 Dose: 40 mg Propofol (Diprivan 20 Ml) Confirm Administered Dose 200 mg .ROUTE .STK-MED ONE Stop: 11/16/16 11:19 Sodium Chloride (Saline Flush) 10 ml FLUSH ASDIRECTED PRN PRN Reason: Keep Vein Open Stop: 11/15/16 23:00 Last Admin: 11/15/16 14:29 Dose: 10 ml - Exam Quality Assessment: supplemental oxygen General: alert, oriented, cooperative, moderate distress Neck: supple Lungs: Normal respiratory effort Abdomen: soft, no distension, tenderness (severe RUQ ttp with some guarding), other (no peritoneal signs) Extremities: no edema, no cyanosis Skin: warm, dry Psy/Mental Status: alert, anxious - Problem List Review Problem List Initiated/Reviewed/Updated: Yes - My Orders Last 24 Hours: My Active Orders 11/16/16 Guide Intraoperative [US] Routine - Plan Plan:: ASSESSMENT AND PLAN RIGHT UPPER QUADRANT ABDOMINAL PAIN - abrupt onset prior to admission which did improve but now has worsened again after liver biopsy. Workup so far unremarkable. Vitals are stable. She has been vomiting this afternoon. A LEGAL COUNSEL was initiated this afternoon. Only mild gastritis was seen on the EGD. Hemoglobin stable postoperatively. -Antiemetic therapy and pain medication as needed -Protonix orally milligrams IV twice daily -Advance diet -Followup biopsy results when available next week MAINTENANCE ISSUES -DVT prophylaxis; not required -GI prophylaxis; Protonix as above -Villalba catheter; not indicated -Nutrition; advance diet -Nicotinic dependence; 21 mg nicotinic patch DISPOSITION - anticipate discharge to home after the hospital stay. Rigo Yoder M.D.
[2016-11-16] MEDS ORDERED: LORazepam 2 MG/ML MDV IVPUSH PRN (14:51)
[2016-11-16] MEDS ORDERED: LORazepam 2 MG/ML MDV IVPUSH ONE (14:51)
[2016-11-16] MEDS: Metoclopramide 10 MG/2 ML SDV IVPUSH SCH (20:18)
[2016-11-17] MEDS: Metoclopramide 10 MG/2 ML SDV IVPUSH SCH ×2 (02:45→07:31)
[2016-11-17] MEDS: Pantoprazole 40 MG Vial IVPUSH SCH (03:33)
[2016-11-17 07:25] VITALS: BP 157/83
[2016-11-17] MEDS: Sodium Chloride 0.9% 1,000 ML IV SCH (07:37)
[2016-11-17] MEDS: Acetaminophen 325 MG Tab PO PRN (10:33)
[2016-11-17] MEDS: oxyCODONE 5 MG Tab PO PRN (10:33)
--- NOTE | 2016-11-17 10:50 | PCM.DCSUM1 ---
Discharge Summary - Hospital Course Brief History: 36-year-old female with history of tobacco dependence who presented with acute right upper quadrant abdominal pain. She was admitted for pain control and further workup with CT scan noting an enlarged but otherwise normal appearing liver. - Discharge Data Discharge Date: 11/17/16 Discharge Disposition: Home, Self-Care 01 Condition: Good - Discharge Diagnosis/Problem(s) (1) Abdominal pain, acute, right upper quadrant SNOMED Code(s): 803652130 ICD Code: R10.11 - RIGHT UPPER QUADRANT PAIN Status: Acute (2) Enlargement of liver SNOMED Code(s): 90634932 ICD Code: R16.0 - HEPATOMEGALY, NOT ELSEWHERE CLASSIFIED Status: Chronic (3) Tobacco dependence syndrome SNOMED Code(s): 46388969 ICD Code: F17.200 - NICOTINE DEPENDENCE, UNSPECIFIED, UNCOMPLICATED Status : Chronic - Patient Summary/Data Consults: Consultations 11/16/16 07:00 Consult to Physician [CONS] Routine Consulting Provider: Brandan Barron Courtesy Call Completed to Consulting Physician: Yes Reason for Consult: EGD to evaluate right upper quadrant abdominal pain Labs Pending at D/C: Liver biopsy results Hospital Course: Irene presented to the emergency room with acute right upper quadrant pain with nausea. Workup in the emergency room was fairly unremarkable other than a mildly enlarged but otherwise normal appearing liver. She had recently been started on Lexapro. Given the severity of her pain admission for further workup was recommended. There were no acute events overnight following admission. The morning after admission Dr. Barron did perform upper endoscopy which revealed only very mild gastritis and duodenitis. He did not feel that this wasn't significant enough to cause her pain given the enlarged liver and we did perform a liver biopsy to her post biopsy course was complicated by a fair amount of pain as well as nausea and vomiting. These resolved after a few doses of pain medication and antinausea medications. On the morning of discharge she is tolerating a regular diet. She has not had any vomiting or nausea at all this morning. She has some mild residual right upper quadrant pain. She feels well enough to go home at this time. The exact cause for her pain is not entirely clear but other than her mildly enlarged but otherwise normal looking liver we did not find a definite cause and she is doing much better today. She will follow up with Dr. Barron in a few days to get her biopsy results. She will utilize acetaminophen and ibuprofen for pain control. She is planning on not taking the Lexapro anymore because she's worried that this caused her pain. - Patient Instructions Diet: Regular Diet as Tolerated (Soft and bland foods for the next 1 to 2 weeks) Activity: As Tolerated Driving: May Drive Today Showering/Bathing: May Shower Notify Provider of: Fever, Increased Pain, Nausea and/or Vomiting Other/Special Instructions: 1. You were in the hospital for management of acute right upper quadrant abdominal pain. We did not find a definite cause for the pain. This pain has gotten better with pain control and time. We did notice that her liver is larger than average but appears normal otherwise. We did take a deep biopsy of the liver and results should be available next week. You can use acetaminophen 650 mg every 4 hours and/or ibuprofen 600 mg every 6 hours to help with your residual right upper quite abdominal pain. 2. Please seek medical attention if your pain returns and is severe, you develop fever greater than 101 or you have persistent nausea with vomiting. - Discharge Plan Home Medications: Home Meds Escitalopram [Lexapro] mg PO DAILY 11/15/16 [History] Patient Handouts: Nausea, Adult Forms: ED Department Discharge Referrals: PCP,None [Primary Care Provider] - (follow up if your symptoms return or do not continue to get better) - Discharge Summary/Plan Comment DC Time >30 min.: No (25) - Patient Data Vitals - Most Recent: Last Vital Signs Temp 36.9 C 11/17/16 07:22 Pulse 50 L 11/17/16 07:22 Resp 16 11/17/16 07:22 BP 157/83 H 11/17/16 07:22 Pulse Ox 98 11/17/16 07:22 Weight - Most Recent: 65.771 kg I&O - Last 24 hours: Intake & Output 11/16/16 11/17/16 11/17/16 22:59 06:59 14:59 Intake Total 1720 1261 Output Total 1110 400 300 Balance 610 861 -300 Lab Results - Last 24 hrs: Laboratory Results - last 24 hr 11/16/16 11/17/16 11/17/16 Range/Units 12:45 04:15 04:15 WBC 8.4 7.4 (4.5-11.0) K/uL RBC 4.11 3.94 (3.30-5.50) M/uL Hgb 11.2 L 10.8 L (12.0-15.0) g/dL Hct 35.3 L 33.7 L (36.0-48.0) % MCV 86 86 (80-98) fL MCH 27 27 (27-31) pg MCHC 32 32 (32-36) % Plt Count 172 154 (150-400) K/uL Sodium 138 L (140-148) mmol/L Potassium 3.6 (3.6-5.2) mmol/L Chloride 107 (100-108) mmol/L Carbon Dioxide 20 L (21-32) mmol/L Anion Gap 14.6 H (5.0-14.0) mmol/L BUN 11 (7-18) mg/dL Creatinine 0.6 (0.6-1.0) mg/dL Est Cr Clr Drug Dosing 109.29 mL/min Estimated GFR (MDRD) > 60 (>60) Glucose 71 L (74-106) mg/dL Calcium 7.6 L (8.5-10.1) mg/dL Phosphorus 2.9 (2.5-4.9) mg/dL Magnesium 1.6 L (1.8-2.4) mg/dL Total Bilirubin 0.6 (0.2-1.0) mg/dL AST 19 (15-37) U/L ALT 22 (12-78) U/L Alkaline Phosphatase 60 (46-116) U/L Total Protein 5.2 L (6.4-8.2) g/dL Albumin 2.9 L (3.4-5.0) g/dL Globulin 2.3 (2.3-3.5) g/dL Albumin/Globulin Ratio 1.3 (1.2-2.2) Med Orders - Current: Current Medications Acetaminophen (Tylenol) 650 mg PO Q4H PRN PRN Reason: Pain (Mild 1-3)/fever Last Admin: 11/17/16 10:33 Dose: 650 mg Hydromorphone HCl (Dilaudid [facility] [facility] [employer] 15 Mg In Ns 30 Ml) 0 mg IV ASDIRECTED PRN; Protocol PRN Reason: [employer] PAIN CONTROL Last Admin: 11/16/16 12:38 Dose: 15 mg Sodium Chloride (Normal Saline) 1,000 mls @ 125 mls/hr IV ASDIRECTED CHANI Last Admin: 11/17/16 07:37 Dose: 125 mls/hr Lorazepam (Ativan) 0.5 - 1 mg IVPUSH Q4H PRN PRN Reason: Nausea/Vomiting Last Admin: 11/16/16 23:32 Dose: 1 mg Metoclopramide HCl (Reglan) 10 mg IVPUSH Q6H [facility] Last Admin: 11/17/16 07:31 Dose: 10 mg Naloxone HCl (Narcan) 0.1 mg IV ASDIRECTED PRN PRN Reason: decreased respiratory rate Ondansetron HCl (Zofran) 4 mg IV Q4H PRN PRN Reason: Nausea/Vomiting Last Admin: 11/16/16 19:14 Dose: 4 mg Oxycodone HCl (Oxycodone) 5 mg PO Q4H PRN PRN Reason: Pain (moderate 4-6) Last Admin: 11/17/16 10:33 Dose: 5 mg Pantoprazole Sodium (Protonix Iv) 40 mg IVPUSH Q12H [facility] Last Admin: 11/17/16 03:33 Dose: 40 mg Sodium Chloride (Saline Flush) 10 ml FLUSH ASDIRECTED PRN PRN Reason: Keep Vein Open Discontinued Medications Bupivacaine HCl (Marcaine 0.5%) Confirm Administered Dose 50 ml .ROUTE .STK-MED ONE Stop: 11/16/16 08:46 Last Admin: 11/16/16 13:30 Dose: 3.5 ml Al Hydroxide/Mg Hydroxide 15 (ml/ Lidocaine HCl 15 ml) 0 ml PO ONETIME ONE Stop: 11/15/16 15:56 Last Admin: 11/15/16 16:24 Dose: 15 ml Fentanyl (Sublimaze) Confirm Administered Dose 100 mcg .ROUTE .STK-MED ONE Stop: 11/16/16 11:19 Hydromorphone HCl (Dilaudid) 0.5 mg IVPUSH ONETIME ONE Stop: 11/15/16 11:40 Last Admin: 11/15/16 12:08 Dose: 0.5 mg Hydromorphone HCl (Dilaudid) 1 mg IVPUSH ONETIME ONE Stop: 11/15/16 13:58 Last Admin: 11/15/16 14:03 Dose: 1 mg Hydromorphone HCl (Dilaudid) 0.5 mg IVPUSH Q3H PRN PRN Reason: Pain Last Admin: 11/16/16 12:13 Dose: 0.5 mg Sodium Chloride (Normal Saline) 1,000 mls @ 999 mls/hr IV ASDIRECTED [facility] Last Admin: 11/15/16 12:03 Dose: 999 mls/hr Sodium Chloride (Normal Saline) 100 mls @ 3.5 mls/sec IV ASDIRECTED [facility] Stop: 11/15/16 14:16 Last Admin: 11/15/16 14:29 Dose: 3 mls/sec Sodium Chloride (Normal Saline) 1,000 mls @ 500 mls/hr IV ASDIRECTED [facility] Last Admin: 11/15/16 14:45 Dose: 500 mls/hr Iopamidol (Isovue-300 (61%)) 100 ml IV . DIRECTED PRN PRN Reason: RADIOLOGY EXAM Stop: 11/16/16 14:16 Last Admin: 11/15/16 14:29 Dose: 100 ml Lidocaine/Epinephrine (Xylocaine 1% With Epinephrine 1:100,000) Confirm Administered Dose 50 ml .ROUTE .STK-MED ONE Stop: 11/16/16 08:46 Last Admin: 11/16/16 13:30 Dose: 3.5 ml Lorazepam (Ativan) 1 mg IVPUSH ONETIME ONE Stop: 11/16/16 14:52 Last Admin: 11/16/16 15:03 Dose: 1 mg Midazolam HCl (Versed 1 Mg/Ml) Confirm Administered Dose 2 mg .ROUTE .STK-MED ONE Stop: 11/16/16 11:20 Ondansetron HCl (Zofran) 4 mg IVPUSH ONETIME ONE Stop: 11/15/16 11:40 Last Admin: 11/15/16 12:04 Dose: 4 mg Ondansetron HCl (Zofran) 4 mg IVPUSH ONETIME ONE Stop: 11/15/16 14:48 Last Admin: 11/15/16 14:59 Dose: 4 mg Pantoprazole Sodium (Protonix Iv) 40 mg IVPUSH ONETIME ONE Stop: 11/15/16 15:56 Last Admin: 11/15/16 16:24 Dose: 40 mg Propofol (Diprivan 20 Ml) Confirm Administered Dose 200 mg .ROUTE .STK-MED ONE Stop: 11/16/16 11:19 Sodium Chloride (Saline Flush) 10 ml FLUSH ASDIRECTED PRN PRN Reason: Keep Vein Open Stop: 11/15/16 23:00 Last Admin: 11/15/16 14:29 Dose: 10 ml *Q Meaningful Use (DIS) - VTE *Q VTE Criteria *Q: VTE Pharmacological Contraindications *Q: Not Candidate LT Anticoag - Stroke *Q Stroke Criteria *Q: - AMI *Q AMI Criteria *Q:
--- NOTE | 2016-11-18 11:07 | PN ---
DATE OF SERVICE: 11/17/2016 The patient has been clinically stable overnight from renal damage. The blood hemoglobin is stable after the liver biopsy. She has been nauseated, but this appears to be clearing. The plan as discussed with Dr. Yoder will be to switch over to oral medications today, and she may be able to be discharged home later today or tomorrow morning. The patient, if discharged, should follow up with Dr. Barron this coming Saturday, and we will see what the liver biopsy is showing and then direct further management from that point, as she does not have a personal physician registered. Brandan Barron MD /[id number]
--- NOTE | 2016-11-18 14:28 | OR ---
DATE OF PROCEDURE: 11/16/2016 POSTOPERATIVE DIAGNOSIS: Upper abdominal pain associated with marked hepatomegaly. POSTOPERATIVE DIAGNOSES: 1. Minimal gastritis and duodenitis (unlikely to be significantly symptomatic). 2. Marked hepatomegaly. OPERATIVE PROCEDURE: 1. Esophagogastroduodenoscopy with biopsies of antrum for CLOtest (02412). 2. Ultrasound-guided percutaneous liver biopsy ([id number]). ANESTHESIA: Local plus IV sedation. INDICATION FOR PROCEDURE: This is a 36-year-old presenting with some upper abdominal pain. It extends more across the upper half of the abdomen. She is status post previous cholecystectomy. Imaging was suggestive of a quite marked hepatomegaly without other specific findings. Otherwise, the CT scan was negative. Plan was to proceed with upper GI endoscopy with biopsies and following that with a percutaneous liver biopsy. Potential risks of the procedure including bleeding, infection, injury to underlying viscera, problems with bleeding after liver biopsy potentially requiring operative procedure for correction were reviewed, and the patient wishes to proceed. DESCRIPTION OF OPERATION: The patient was taken to the operating room and placed in a left lateral decubitus position. IV sedation was administered, after which the upper GI endoscope was passed orally through the length of the esophagus and stomach with retroflexion view of the fundus, thereafter through the pyloric channel and proximal duodenum. Findings included normal hypopharynx, larynx, upper esophageal sphincter, and esophageal body. The EG junction was likewise unremarkable. The proximal stomach was unremarkable. There was some very minimal redness in the antrum and duodenal bulb beyond the duodenum, normalized to the level of the junction at the third and fourth portions. Biopsies were obtained from the antrum and sent for CLOtest for H. pylori. Minimal bleeding from the biopsy sites was seen and the procedure concluded. Overall, the upper endoscopic findings would not likely be accounting for the patient's sense of discomfort. The patient was then placed in a supine position. Ultrasound was then obtained to show the liver in the right lower quadrant. This came well below the costal margin. The area was prepped and draped. The skin anesthetized with 1% lidocaine. A total of three Vega-Cut biopsies were obtained from the right lobe of the liver. Upon completion of the biopsy, the area was once again examined with ultrasound. No significant bleeding or other problems were noted and dry sterile Band-Aid applied to the biopsy site. The patient was taken to the recovery room in satisfactory condition. There were no other complications. Brandan Barron MD /[id number]
== END 2016-11-17 11:20 | disposition home or self-care (01) ==
LOC: JP.ED 10:03 → JP.MS 16:26
PROVIDERS: ADMIT Hospitalist; ATTEND Internal Medicine
DX: K29.50 Unspecified chronic gastritis without bleeding (principal); K29.80 Duodenitis without bleeding; F41.9 Anxiety disorder, unspecified; Z88.8 Allergy status to other drugs, medicaments and biological substances; Z79.899 Other long term (current) drug therapy; Z90.49 Acquired absence of other specified parts of digestive tract; Z98.890 Other specified postprocedural states; Z98.51 Tubal ligation status; F17.210 Nicotine dependence, cigarettes, uncomplicated
CPT/HCPCS: 36415; 43239; 47000; 74022; 74177; 76998; 80053; 81001; 83690; 83735; 84100; 85025; 85027; 86140; 87081; 94762; 96361; 96374; 96375; 96376; 99285; A9270; C9113; J1170; J2060; J2250; J2405; J2704; J2765; J3010; J7030; J7040; J7050; Q9967; 88307; 88313; G0378

== ENCOUNTER 2016-11-18 09:49 | Inpatient (IN) | payer MEDICAID ==
[2016-11-18] MEDS ORDERED: Ondansetron 4 MG/2 ML SDV IVPUSH ONE (10:17)
[2016-11-18] MEDS ORDERED: HYDROmorphone 0.5 MG/0.5 ML Syringe IVPUSH ONE (10:17)
[2016-11-18] MEDS ORDERED: Sodium Chloride 0.9% 1,000 ML IV SCH (10:30)
--- NOTE | 2016-11-18 10:54 | EDM.PDOC ---
ED HPI GENERAL MEDICAL PROBLEM - General Chief Complaint: Abdominal Pain Stated Complaint: PAIN/DISCHARGED YESTERDAY Time Seen by Provider: 11/18/16 10:49 Source of Information: Reports: Patient, RN Notes Reviewed - History of Present Illness INITIAL COMMENTS - FREE TEXT/NARRATIVE: Pt arrived having severe abdomanal pain. She was discharged yesterday am. She once again is having marked nausea and she having severe abdomanal pain. Onset: Other ( Pt has had several days of pain. ) Duration: Day(s):, Getting Worse Location: Reports: Abdomen Associated Symptoms: Reports: Loss of Appetite, Nausea/Vomiting - Related Data Allergies Allergy/AdvReac Type Severity Reaction Status Date / Time varenicline tartrate AdvReac Other Verified 11/15/16 10:53 [From Chantix] Home Meds: Home Meds NK [No Known Home Meds] 11/18/16 [History] Past Medical History HEENT History: Reports: Impaired Vision Gastrointestinal History: Reports: Cholelithiasis Genitourinary History: Reports: None BUTTON SEWER HAND History: Reports: Musculoskeletal History: Reports: Back Pain, Chronic, Other (See Below) Other Musculoskeletal History: chronic knee pain Neurological History: Reports: Concussion, Migraines Psychiatric History: Reports: Anxiety - Infectious Disease History Infectious Disease History: Reports: Chicken Pox - Past Surgical History GI Surgical History: Reports: Cholecystectomy, Hernia Repair/Other Female Surgical History: Reports: Section, Tubal Ligation Musculoskeletal Surgical History: Reports: Arthroscopic Knee, Arthroscopic Procedure, Ganglion Cyst Social & Family History - Family History Family Medical History: Unobtainable - Tobacco Use Smoking Status *Q: Heavy Tobacco Smoker Years of Tobacco use: 20 Packs/Tins Daily: 1 Used Tobacco, but Quit: No Month Tobacco Last Used: November Second Hand Smoke Exposure: No - Caffeine Use Caffeine Use: Reports: None - Alcohol Use Days Per Week of Alcohol Use: 0 - Recreational Drug Use Recreational Drug Use: No ED ROS GENERAL - Review of Systems Review Of Systems: See Below Constitutional: Reports: Decreased Appetite HEENT: Reports: No Symptoms Respiratory: Reports: No Symptoms Cardiovascular: Reports: No Symptoms Endocrine: Reports: No Symptoms GI/Abdominal: Reports: Abdominal Pain, Other (pt continues to have mid abdomanal pain. She is nauseated but has not vomited alot. ) : Reports: No Symptoms Musculoskeletal: Reports: No Symptoms Skin: Reports: No Symptoms Neurological: Reports: No Symptoms ED EXAM, GI/ABD - Physical Exam Exam: See Below Text/Narrative:: pt comntinues to be nauseated and wretching. She has not actually vomited alot. She is having severe midabdomanal pain. Exam Limited By: No Limitations General Appearance: Alert, Moderate Distress Ears: Normal TMs Nose: Normal Inspection Throat/Mouth: Normal Inspection Head: Atraumatic Neck: Normal Inspection Respiratory/Chest: No Respiratory Distress Cardiovascular: Regular Rate, Rhythm GI/Abdominal: Other ( tender in the mid abdoman. no true guarding. ) (Female) Exam: Deferred Rectal (Female) Exam: Deferred Back Exam: Normal Inspection Extremities: Normal Inspection Neurological: Alert, Oriented, Normal Cognition Psychiatric: Anxious Course - Vital Signs Last Recorded V/S: Last Vital Signs Temp 36.0 C 11/18/16 10:05 Pulse 71 11/18/16 10:05 Resp 18 11/18/16 10:05 BP 177/109 H 11/18/16 10:05 Pulse Ox 98 11/18/16 10:05 - Orders/Labs/Meds Orders: Active Orders 24 hr Category Date Time Status Abdomen Pelvis w Cont [CT] Stat Exams 11/18/16 10:56 Taken Chest 1V Frontal [CR] Stat Exams 11/18/16 12:51 Ordered Iopamidol [Isovue-300 (61%)] Med 11/18/16 11:27 Active 100 ml IV . DIRECTED PRN Sodium Chloride 0.9% [Normal Saline] 1,000 ml Med 11/18/16 10:30 Active IV ASDIRECTED Sodium Chloride 0.9% [Normal Saline] 75 ml Med 11/18/16 11:30 Active IV ASDIRECTED Medication Orders Sodium Chloride (Normal Saline) 1,000 mls @ 999 mls/hr IV ASDIRECTED CHANI Last Admin: 11/18/16 10:31 Dose: 999 mls/hr Sodium Chloride (Normal Saline) 75 mls @ 3 mls/sec IV ASDIRECTED CHANI Last Admin: 11/18/16 11:43 Dose: 3 mls/sec Iopamidol (Isovue-300 (61%)) 100 ml IV . DIRECTED PRN PRN Reason: RADIOLOGY EXAM Stop: 11/19/16 11:28 Last Admin: 06/04/17 11:43 Dose: 100 ml Labs: Laboratory Tests 11/18/16 11/18/16 11/18/16 Range/Units 10:15 10:15 10:16 WBC 6.9 (4.5-11.0) K/uL RBC 4.15 (3.30-5.50) M/uL Hgb 11.5 L (12.0-15.0) g/dL Hct 34.5 L (36.0-48.0) % MCV 83 (80-98) fL MCH 28 (27-31) pg MCHC 33 (32-36) % Plt Count 195 (150-400) K/uL Neut % (Auto) 67 H (36-66) % Lymph % (Auto) 25 (24-44) % Forrest % (Auto) 6 (2-6) % Eos % (Auto) 2 (2-4) % Baso % (Auto) 0 (0-1) % Sodium 139 L (140-148) mmol/L Potassium 3.4 L (3.6-5.2) mmol/L Chloride 106 (100-108) mmol/L Carbon Dioxide 20 L (21-32) mmol/L Anion Gap 16.4 H (5.0-14.0) mmol/L BUN 6 L (7-18) mg/dL Creatinine 0.7 (0.6-1.0) mg/dL Est Cr Clr Drug Dosing 93.68 mL/min Estimated GFR (MDRD) > 60 (>60) Glucose 91 (74-106) mg/dL Calcium 8.2 L (8.5-10.1) mg/dL Total Bilirubin 0.4 (0.2-1.0) mg/dL AST 21 (15-37) U/L ALT 23 (12-78) U/L Alkaline Phosphatase 59 (46-116) U/L C-Reactive Protein (0.0-0.3) mg/dL Total Protein 6.1 L (6.4-8.2) g/dL Albumin 3.3 L (3.4-5.0) g/dL Globulin 2.8 (2.3-3.5) g/dL Albumin/Globulin Ratio 1.2 (1.2-2.2) Amylase 32 (25-115) U/L Lipase 131 (73-393) U/L Urine Color Urine Appearance Urine pH (4.5-8.0) Ur Specific Social Circle (1.008-1.030) Urine Protein (NEGATIVE) mg/dL Urine Glucose (UA) (NEGATIVE) mg/dL Urine Ketones (NEGATIVE) mg/dL Urine Occult Blood (NEGATIVE) Urine Nitrite (NEGATIVE) Urine Bilirubin (NEGATIVE) Urine Urobilinogen (NORMAL) mg/dL Ur Leukocyte Esterase (NEGATIVE) Urine RBC (0-5) Urine WBC (0-5) Ur Epithelial Cells Amorphous Sediment Urine Bacteria Urine Mucus Urine Opiates Screen (NEGATIVE) Ur Oxycodone Screen (NEGATIVE) Urine Methadone Screen (NEGATIVE) Ur Propoxyphene Screen (NEGATIVE) Ur Barbiturates Screen (NEGATIVE) Ur Tricyclics Screen (NEGATIVE) Ur Phencyclidine Scrn (NEGATIVE) Ur Amphetamine Screen (NEGATIVE) U Methamphetamines Scrn (NEGATIVE) Urine MDMA Screen (NEGATIVE) U Benzodiazepines Scrn (NEGATIVE) U Cocaine Metab Screen (NEGATIVE) U Marijuana (THC) Screen (NEGATIVE) 11/18/16 11/18/16 11/18/16 Range/Units 10:55 11:05 11:05 WBC (4.5-11.0) K/uL RBC (3.30-5.50) M/uL Hgb (12.0-15.0) g/dL Hct (36.0-48.0) % MCV (80-98) fL MCH (27-31) pg MCHC (32-36) % Plt Count (150-400) K/uL Neut % (Auto) (36-66) % Lymph % (Auto) (24-44) % Forrest % (Auto) (2-6) % Eos % (Auto) (2-4) % Baso % (Auto) (0-1) % Sodium (140-148) mmol/L Potassium (3.6-5.2) mmol/L Chloride (100-108) mmol/L Carbon Dioxide (21-32) mmol/L Anion Gap (5.0-14.0) mmol/L BUN (7-18) mg/dL Creatinine (0.6-1.0) mg/dL Est Cr Clr Drug Dosing mL/min Estimated GFR (MDRD) (>60) Glucose (74-106) mg/dL Calcium (8.5-10.1) mg/dL Total Bilirubin (0.2-1.0) mg/dL AST (15-37) U/L ALT (12-78) U/L Alkaline Phosphatase (46-116) U/L C-Reactive Protein 0.50 H (0.0-0.3) mg/dL Total Protein (6.4-8.2) g/dL Albumin (3.4-5.0) g/dL Globulin (2.3-3.5) g/dL Albumin/Globulin Ratio (1.2-2.2) Amylase (25-115) U/L Lipase (73-393) U/L Urine Color Yellow Urine Appearance Clear Urine pH 6.5 (4.5-8.0) Ur Specific Social Circle 1.010 (1.008-1.030) Urine Protein Negative (NEGATIVE) mg/dL Urine Glucose (UA) Normal (NEGATIVE) mg/dL Urine Ketones Negative (NEGATIVE) mg/dL Urine Occult Blood Large (NEGATIVE) Urine Nitrite Negative (NEGATIVE) Urine Bilirubin Negative (NEGATIVE) Urine Urobilinogen Normal (NORMAL) mg/dL Ur Leukocyte Esterase Negative (NEGATIVE) Urine RBC 0-5 (0-5) Urine WBC 5-10 H (0-5) Ur Epithelial Cells Few Amorphous Sediment Few Urine Bacteria Rare Urine Mucus Few Urine Opiates Screen Positive H (NEGATIVE) Ur Oxycodone Screen Positive H (NEGATIVE) Urine Methadone Screen Negative (NEGATIVE) Ur Propoxyphene Screen Negative (NEGATIVE) Ur Barbiturates Screen Negative (NEGATIVE) Ur Tricyclics Screen Negative (NEGATIVE) Ur Phencyclidine Scrn Negative (NEGATIVE) Ur Amphetamine Screen Negative (NEGATIVE) U Methamphetamines Scrn Negative (NEGATIVE) Urine MDMA Screen Negative (NEGATIVE) U Benzodiazepines Scrn Positive H (NEGATIVE) U Cocaine Metab Screen Negative (NEGATIVE) U Marijuana (THC) Screen Positive H (NEGATIVE) Meds: Medications Generic Name Dose Route Start Last Admin Trade Name Freq PRN Reason Stop Dose Admin Sodium Chloride 1,000 mls @ 999 mls/hr 11/18/16 10:30 11/18/16 10:31 Normal Saline IV 999 mls/hr ASDIRECTED CHANI Administration Sodium Chloride 75 mls @ 3 mls/sec 11/18/16 11:30 11/18/16 11:43 Normal Saline IV 3 mls/sec ASDIRECTED CHANI Administration Iopamidol 100 ml 11/18/16 11:27 11/18/16 11:43 Isovue-300 (61%) IV 11/19/16 11:28 100 ml . DIRECTED PRN Administration RADIOLOGY EXAM Discontinued Medications Generic Name Dose Route Start Last Admin Trade Name Alejo PRN Reason Stop Dose Admin Hydromorphone HCl 0.5 mg 11/18/16 10:17 11/18/16 10:29 Dilaudid IVPUSH 11/18/16 10:18 0.5 mg ONETIME ONE Administration Hydromorphone HCl 1 mg 11/18/16 12:03 11/18/16 12:21 Dilaudid IVPUSH 11/18/16 12:04 1 mg ONETIME ONE Administration Ondansetron HCl 4 mg 11/18/16 10:17 11/18/16 10:28 Zofran IVPUSH 11/18/16 10:18 4 mg ONETIME ONE Administration Sodium Chloride 10 ml 11/18/16 11:27 11/18/16 11:43 Saline Flush FLUSH 11/18/16 11:28 10 ml ONETIME ONE Administration - Re-Assessments/Exams Free Text/Narrative Re-Assessment/Exam: 11/18/16 12:53 cat scn shows some thickening of the cecum and rt colon. and also the transverse colon, there is a small pleural effusion and some fluid in the pelvis. Departure - Departure Time of Disposition: 12:55 Disposition: Admitted As Inpatient 68 Condition: fair Clinical Impression: Colitis, History of liver biopsy - Discharge Information Forms: ED Department Discharge Care Plan Goals: admit to Dr emerson - My Orders Last 24 Hours: My Active Orders 11/18/16 10:30 Sodium Chloride 0.9% [Normal Saline] 1,000 ml IV ASDIRECTED 11/18/16 10:56 Abdomen Pelvis w Cont [CT] Stat 11/18/16 11:27 Iopamidol [Isovue-300 (61%)] 100 ml IV . DIRECTED PRN 11/18/16 11:30 Sodium Chloride 0.9% [Normal Saline] 75 ml IV ASDIRECTED 11/18/16 12:51 Chest 1V Frontal [CR] Stat - Assessment/Plan Last 24 Hours: My Active Orders 11/18/16 10:30 Sodium Chloride 0.9% [Normal Saline] 1,000 ml IV ASDIRECTED 11/18/16 10:56 Abdomen Pelvis w Cont [CT] Stat 11/18/16 11:27 Iopamidol [Isovue-300 (61%)] 100 ml IV . DIRECTED PRN 11/18/16 11:30 Sodium Chloride 0.9% [Normal Saline] 75 ml IV ASDIRECTED 11/18/16 12:51 Chest 1V Frontal [CR] Stat
[2016-11-18] MEDS ORDERED: Sodium Chloride 0.9% 10 ML Syringe FLUSH ONE (11:27)
[2016-11-18] MEDS ORDERED: Iopamidol 612 MG/ML 100 ML Bottle IV PRN (11:27)
[2016-11-18] MEDS ORDERED: Sodium Chloride 0.9% 75 ML IV SCH (11:30)
[2016-11-18] MEDS ORDERED: HYDROmorphone 1 MG/ML Syringe IVPUSH ONE (12:03)
--- NOTE | 2016-11-18 13:53 | PCM.HP ---
H&P History of Present Illness - General Date of Service: 11/18/16 Admit Problem/Dx: Admission Diagnosis/Problem Admission Diagnosis/Problem Colitis Source of Information: Patient, Provider History Limitations: Reports: No Limitations - History of Present Illness Initial Comments - Free Text/Narative: Irene presents today with no return of severe crampy right upper quadrant abdominal pain. This pain radiates throughout the upper half of her abdomen and slightly to the right flank area. Pain comes and goes in waves with no obvious trigger. [id number] pain medications have not provided any relief. She's had nausea and vomiting throughout the night. She has not had anything to eat since yesterday afternoon. She's had subjective fevers and chills but has not measured any temperature elevations. No complaints of diarrhea or change in her urinary habits. No complaints of chest pain or shortness of breath. No obvious sick contacts or recent travel. She did feel well yesterday for a few hours after hospital discharge but then her pain slowly built up and worsened throughout the night. Workup in the emergency room has revealed mild hypokalemia as well as a CT scan that showed some inflammation of the colon in the right upper cord current. She will be admitted for pain control and additional management and workup. 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: Musculoskeletal History: Reports: Back Pain, Chronic, Other (See Below) Other Musculoskeletal History: chronic knee pain Neurological History: Reports: Concussion, Migraines Psychiatric History: Reports: Anxiety - Infectious Disease History Infectious Disease History: Reports: Chicken Pox - Past Surgical History GI Surgical History: Reports: Cholecystectomy, Hernia Repair/Other Female Surgical History: Reports: Section, Tubal Ligation Musculoskeletal Surgical History: Reports: Arthroscopic Knee, Arthroscopic Procedure, Ganglion Cyst Social & Family History - Family History Family Medical History: Unobtainable - Tobacco Use Smoking Status *Q: Heavy Tobacco Smoker Years of Tobacco use: 20 Packs/Tins Daily: 1 Used Tobacco, but Quit: No Month Tobacco Last Used: November Second Hand Smoke Exposure: No - Caffeine Use Caffeine Use: Reports: None - Alcohol Use Days Per Week of Alcohol Use: 0 - Recreational Drug Use Recreational Drug Use: No H&P Review of Systems - Review of Systems: Review Of Systems: See Below Free Text/Narrative: A complete 12 point review of systems was obtained. Pertinent positives and negatives are noted in the history of present illness. All other systems were reviewed and were negative except as noted. Exam - Exam Exam: See Below - Vital Signs Vital Signs: Last Vital Signs Temp 36.0 C 11/18/16 10:05 Pulse 71 11/18/16 10:05 Resp 18 11/18/16 10:05 BP 177/109 H 11/18/16 10:05 Pulse Ox 98 11/18/16 10:05 Weight: 67.8 kg - Exam Quality Assessment: No: Supplemental Oxygen General: Alert, Oriented, Cooperative, Mild Distress HEENT: Conjunctiva Clear. No: Mucosa Moist & [place] (dry), Scleral Icterus Neck: Supple, Trachea Midline. No: Lymphadenopathy Lungs: Clear to Auscultation, Normal Respiratory Effort Cardiovascular: Regular Rate, Regular Rhythm. No: Systolic Murmur Abdomen: Normal Bowel Sounds, Soft, Guarding (Mild), Tenderness (Moderately severe right upper cord current tenderness with palpation, moderate left upper quadrant and right lower quadrant tenderness). No: Distention, Mass Back Exam: Normal Inspection, Full Range of Motion Extremities: Normal Inspection, Normal Pulses. No: Cyanosis Skin: Warm, Dry, Intact Neuro Extensive - Mental Status: Alert, Oriented x3, Nl Response to Commands Neuro Extensive - Motor, Sensory, Reflexes: CN II-XII Intact. No: Dysarthria, Abnormal Motor, Tremor Psychiatric: Alert, Normal Affect - Patient Data Lab Results last 24 hrs: Laboratory Results - last 24 hr 11/18/16 11/18/16 11/18/16 Range/Units 10:15 10:15 10:16 WBC 6.9 (4.5-11.0) K/uL RBC 4.15 (3.30-5.50) M/uL Hgb 11.5 L (12.0-15.0) g/dL Hct 34.5 L (36.0-48.0) % MCV 83 (80-98) fL MCH 28 (27-31) pg MCHC 33 (32-36) % Plt Count 195 (150-400) K/uL Neut % (Auto) 67 H (36-66) % Lymph % (Auto) 25 (24-44) % [place] % (Auto) 6 (2-6) % Eos % (Auto) 2 (2-4) % Baso % (Auto) 0 (0-1) % Sodium 139 L (140-148) mmol/L Potassium 3.4 L (3.6-5.2) mmol/L Chloride 106 (100-108) mmol/L Carbon Dioxide 20 L (21-32) mmol/L Anion Gap 16.4 H (5.0-14.0) mmol/L BUN 6 L (7-18) mg/dL Creatinine 0.7 (0.6-1.0) mg/dL Est Cr Clr Drug Dosing 93.68 mL/min Estimated GFR (MDRD) > 60 (>60) Glucose 91 (74-106) mg/dL Calcium 8.2 L (8.5-10.1) mg/dL Total Bilirubin 0.4 (0.2-1.0) mg/dL AST 21 (15-37) U/L ALT 23 (12-78) U/L Alkaline Phosphatase 59 (46-116) U/L C-Reactive Protein (0.0-0.3) mg/dL Total Protein 6.1 L (6.4-8.2) g/dL Albumin 3.3 L (3.4-5.0) g/dL Globulin 2.8 (2.3-3.5) g/dL Albumin/Globulin Ratio 1.2 (1.2-2.2) Amylase 32 (25-115) U/L Lipase 131 (73-393) U/L Urine Color Urine Appearance Urine pH (4.5-8.0) Ur Specific [place] (1.008-1.030) Urine Protein (NEGATIVE) mg/dL Urine Glucose (UA) (NEGATIVE) mg/dL Urine Ketones (NEGATIVE) mg/dL Urine Occult Blood (NEGATIVE) Urine Nitrite (NEGATIVE) Urine Bilirubin (NEGATIVE) Urine Urobilinogen (NORMAL) mg/dL Ur Leukocyte Esterase (NEGATIVE) Urine RBC (0-5) Urine WBC (0-5) Ur Epithelial Cells Amorphous Sediment Urine Bacteria Urine Mucus Urine Opiates Screen (NEGATIVE) Ur Oxycodone Screen (NEGATIVE) Urine Methadone Screen (NEGATIVE) Ur Propoxyphene Screen (NEGATIVE) Ur Barbiturates Screen (NEGATIVE) Ur Tricyclics Screen (NEGATIVE) Ur Phencyclidine Scrn (NEGATIVE) Ur Amphetamine Screen (NEGATIVE) U Methamphetamines Scrn (NEGATIVE) Urine MDMA Screen (NEGATIVE) U Benzodiazepines Scrn (NEGATIVE) U Cocaine Metab Screen (NEGATIVE) U Marijuana (THC) Screen (NEGATIVE) 11/18/16 11/18/16 11/18/16 Range/Units 10:55 11:05 11:05 WBC (4.5-11.0) K/uL RBC (3.30-5.50) M/uL Hgb (12.0-15.0) g/dL Hct (36.0-48.0) % MCV (80-98) fL MCH (27-31) pg MCHC (32-36) % Plt Count (150-400) K/uL Neut % (Auto) (36-66) % Lymph % (Auto) (24-44) % [place] % (Auto) (2-6) % Eos % (Auto) (2-4) % Baso % (Auto) (0-1) % Sodium (140-148) mmol/L Potassium (3.6-5.2) mmol/L Chloride (100-108) mmol/L Carbon Dioxide (21-32) mmol/L Anion Gap (5.0-14.0) mmol/L BUN (7-18) mg/dL Creatinine (0.6-1.0) mg/dL Est Cr Clr Drug Dosing mL/min Estimated GFR (MDRD) (>60) Glucose (74-106) mg/dL Calcium (8.5-10.1) mg/dL Total Bilirubin (0.2-1.0) mg/dL AST (15-37) U/L ALT (12-78) U/L Alkaline Phosphatase (46-116) U/L C-Reactive Protein 0.50 H (0.0-0.3) mg/dL Total Protein (6.4-8.2) g/dL Albumin (3.4-5.0) g/dL Globulin (2.3-3.5) g/dL Albumin/Globulin Ratio (1.2-2.2) Amylase (25-115) U/L Lipase (73-393) U/L Urine Color Yellow Urine Appearance Clear Urine pH 6.5 (4.5-8.0) Ur Specific [place] 1.010 (1.008-1.030) Urine Protein Negative (NEGATIVE) mg/dL Urine Glucose (UA) Normal (NEGATIVE) mg/dL Urine Ketones Negative (NEGATIVE) mg/dL Urine Occult Blood Large (NEGATIVE) Urine Nitrite Negative (NEGATIVE) Urine Bilirubin Negative (NEGATIVE) Urine Urobilinogen Normal (NORMAL) mg/dL Ur Leukocyte Esterase Negative (NEGATIVE) Urine RBC 0-5 (0-5) Urine WBC 5-10 H (0-5) Ur Epithelial Cells Few Amorphous Sediment Few Urine Bacteria Rare Urine Mucus Few Urine Opiates Screen Positive H (NEGATIVE) Ur Oxycodone Screen Positive H (NEGATIVE) Urine Methadone Screen Negative (NEGATIVE) Ur Propoxyphene Screen Negative (NEGATIVE) Ur Barbiturates Screen Negative (NEGATIVE) Ur Tricyclics Screen Negative (NEGATIVE) Ur Phencyclidine Scrn Negative (NEGATIVE) Ur Amphetamine Screen Negative (NEGATIVE) U Methamphetamines Scrn Negative (NEGATIVE) Urine MDMA Screen Negative (NEGATIVE) U Benzodiazepines Scrn Positive H (NEGATIVE) U Cocaine Metab Screen Negative (NEGATIVE) U Marijuana (THC) Screen Positive H (NEGATIVE) Result Diagrams: 11/18/16 10:15 11/18/16 10:15 Imaging Impressions last 24 hrs: CT scan of the abdomen and pelvis - images personally reviewed - there is evidence for ongoing but stable hepatomegaly. There is no evidence for inflammation of the colon at the hepatic flexure. She has a small right pleural effusion and a small amount of fluid in the dependent pelvis. *Q Meaningful Use (ADM) - VTE *Q VTE Criteria *Q: - VTE Risk Assess *Q Each Risk Factor Represents 1 Point: None Total Score 1 Point Risk Factors: 0 Each Risk Factor Represents 2 Points: None Total Score 2 Point Risk Factors: 0 Each Risk Factor Represents 3 Points: None Total Score 3 Point Risk Factors: 0 Each Risk Factor Represents 5 Points: None Total Score 5 Point Risk Factors: 0 Venous Thromboembolism Risk Factor Score *Q: 0 - Stroke *Q Stroke Criteria *Q: - AMI *Q AMI Criteria *Q: Problem List Initiated/Reviewed/Updated: Yes Orders Last 24hrs: Active Orders 24 hr Category Date Time Status Patient Status Manage Transfer [TRANSFER] Routine ADT 11/18/16 13:37 Ordered Abdomen Pelvis w Cont [CT] Stat Exams 11/18/16 10:56 Taken Chest 1V Frontal [CR] Stat Exams 11/18/16 12:51 Taken Iopamidol [Isovue-300 (61%)] Med 11/18/16 11:27 Active 100 ml IV . DIRECTED PRN Sodium Chloride 0.9% [Normal Saline] 1,000 ml Med 11/18/16 10:30 Active IV ASDIRECTED Sodium Chloride 0.9% [Normal Saline] 75 ml Med 11/18/16 11:30 Active IV ASDIRECTED Resuscitation Status Routine Resus Stat 11/18/16 13:38 Ordered Medication Orders Sodium Chloride (Normal Saline) 1,000 mls @ 999 mls/hr IV ASDIRECTED [facility]ANI Last Admin: 11/18/16 10:31 Dose: 999 mls/hr Sodium Chloride (Normal Saline) 75 mls @ 3 mls/sec IV ASDIRECTED [facility] Last Admin: 11/18/16 11:43 Dose: 3 mls/sec Iopamidol (Isovue-300 (61%)) 100 ml IV . DIRECTED PRN PRN Reason: RADIOLOGY EXAM Stop: 11/19/16 11:28 Last Admin: 11/18/16 11:43 Dose: 100 ml Assessment/Plan Comment:: Assessment and plan - Right upper quadrant abdominal pain - CT scan today shows stable enlargement of the liver and new hepatic flexure colitis. Unclear if this is inflammatory or infectious at this time. She's not having fevers or diarrhea. Symptoms include pain, nausea and vomiting. She has a grandmother with Crohn's disease. She did have a recent liver biopsy but I don't suspect that the enlarged liver is contributing to the acute pain. Biopsy results are still pending. -Pain control -Antinausea medication -Colonoscopy prep today and colonoscopy tomorrow with Dr. Barron -Empiric antibiotics if she becomes febrile Hypokalemia - mild and will be replaced this afternoon. Maintenance issues - - DVT prophylaxis - mechanical - GI prophylaxis - not indicated - Nutrition - clear liquids today and n.p.o. after midnight - Villalba catheter - not indicated CODE STATUS - full code Admission justification - This patient will be admitted for inpatient services and is medically appropriate meeting medical necessity for inpatient admission as outlined in my documentation. I reasonably expect the patient will require inpatient services that span a period time over 2 midnights. I reasonably expect this patient to be discharged or transferred within 96 hours after admission to the [facility]. Disposition - anticipate discharge to home in 2-3 days Primary care physician - none Rgio Yoder M.D.
[2016-11-18] MEDS ORDERED: Promethazine 25 MG Tab PO PRN (14:18)
[2016-11-18] MEDS ORDERED: Ondansetron 4 MG Tab.DIS PO PRN (14:18)
[2016-11-18] MEDS ORDERED: D5 1/2 NS w/ 20 mEq/L KCl 1,000 ML ONE (14:30)
[2016-11-18] MEDS: Ketorolac 30 MG/ML SDV IVPUSH PRN (14:52)
[2016-11-18] MEDS: LORazepam 2 MG/ML MDV IVPUSH PRN ×2 (14:52→19:16)
[2016-11-18] MEDS ORDERED: Polyethylene Glycol 3350 Powder 238 GM Bot PO ONE (15:30)
[2016-11-18] MEDS: Potassium Chloride 20 MEQ, Lidocaine 1% 2 ML in Sodium Chloride 0.9% 100 ML IV SCH ×2 (15:33→17:42)
[2016-11-18] MEDS: oxyCODONE 5 MG Tab PO PRN (16:55)
[2016-11-18] MEDS: HYDROmorphone 0.5 MG/0.5 ML Syringe IVPUSH PRN ×2 (18:37→22:09)
[2016-11-18] MEDS: D5 1/2 NS w/ 20 mEq/L KCl 1,000 ML IV SCH (22:05)
[2016-11-19] MEDS: HYDROmorphone 0.5 MG/0.5 ML Syringe IVPUSH PRN ×7 (00:31→22:10)
[2016-11-19] MEDS: LORazepam 2 MG/ML MDV IVPUSH PRN ×3 (03:02→23:41)
[2016-11-19] MEDS: D5 1/2 NS w/ 20 mEq/L KCl 1,000 ML IV SCH ×3 (07:14→22:17)
[2016-11-19] MEDS ORDERED: fentaNYL 100 MCG/2 ML SDV ONE ×2 (07:35→08:40)
[2016-11-19] MEDS ORDERED: Propofol 200 MG/20 ML SDV ONE ×2 (07:35→08:40)
[2016-11-19] MEDS ORDERED: Midazolam 1 MG/ML 2 ML SDV ONE ×2 (07:36→08:40)
[2016-11-19] MEDS ORDERED: Dexamethasone 4 MG/ML SDV ONE (09:23)
[2016-11-19] MEDS ORDERED: Ondansetron 4 MG/2 ML SDV ONE (09:23)
--- NOTE | 2016-11-19 09:47 | CR ---
Chest 1V Frontal FINDINGS: The heart and vascular structures are normal in appearance. No infiltrates or effusions ar e demonstrated. The skeletal structures are unremarkable. IMPRESSION: Negative exam.
[2016-11-19] MEDS: Ketorolac 30 MG/ML SDV IVPUSH PRN ×2 (11:15→21:30)
--- NOTE | 2016-11-19 11:22 | PCM.PN ---
- General Info Date of Service: 11/19/16 Functional Status: Reports: pain controlled, tolerating diet - Review of Systems General: Denies: Fever Gastrointestinal: Reports: Abdominal pain. Denies: Diarrhea Systems Review Comment:: No acute events overnight. Moderate persistent pain and some nausea but no vomiting. Colonoscopy today appeared fairly normal and random biopsies were obtained to rule out microscopic colitis. She has not had any fevers. She has not had any diarrhea. Oral intake has been excellent. - Patient Data Vitals - most recent: Last Vital Signs Temp 36.5 C 11/19/16 11:00 Pulse 51 L 11/19/16 11:00 Resp 18 11/19/16 11:00 BP 131/72 11/19/16 11:00 Pulse Ox 94 L 11/19/16 11:00 Weight - most recent: 67.8 kg I&O - last 24 hours: Intake & Output 11/18/16 11/19/16 11/19/16 22:59 06:59 14:59 Intake Total 2144 1125 Output Total 730 225 300 Balance 1414 900 -300 Lab Results last 24 hrs: Laboratory Results - last 24 hr 11/19/16 11/19/16 Range/Units 05:58 05:58 WBC 5.6 (4.5-11.0) K/uL RBC 3.70 (3.30-5.50) M/uL Hgb 10.3 L (12.0-15.0) g/dL Hct 31.7 L (36.0-48.0) % MCV 86 (80-98) fL MCH 28 (27-31) pg MCHC 33 (32-36) % Plt Count 159 (150-400) K/uL Sodium 140 (140-148) mmol/L Potassium 4.0 (3.6-5.2) mmol/L Chloride 107 (100-108) mmol/L Carbon Dioxide 24 (21-32) mmol/L Anion Gap 9.4 (5.0-14.0) mmol/L BUN 4 L (7-18) mg/dL Creatinine 0.6 (0.6-1.0) mg/dL Est Cr Clr Drug Dosing 109.29 mL/min Estimated GFR (MDRD) > 60 (>60) Glucose 109 H (74-106) mg/dL Calcium 7.8 L (8.5-10.1) mg/dL Total Bilirubin 0.3 (0.2-1.0) mg/dL AST 16 (15-37) U/L ALT 19 (12-78) U/L Alkaline Phosphatase 49 (46-116) U/L Total Protein 5.2 L (6.4-8.2) g/dL Albumin 2.9 L (3.4-5.0) g/dL Globulin 2.3 (2.3-3.5) g/dL Albumin/Globulin Ratio 1.3 (1.2-2.2) Med Orders - Current: Current Medications Acetaminophen (Tylenol) 650 mg PO Q4H PRN PRN Reason: Pain (Mild 1-3)/fever Hydromorphone HCl (Dilaudid) 0.5 - 1 mg IVPUSH Q2H PRN PRN Reason: Pain (severe 7-10) Last Admin: 11/19/16 10:16 Dose: 1 mg Potassium Chloride/Dextrose/Sod Cl (D5 1/2 Ns W/ 20 Meq/L Kcl) 1,000 mls @ 100 mls/hr IV ASDIRECTED [facility] Last Admin: 11/19/16 07:14 Dose: 100 mls/hr Ketorolac Tromethamine (Toradol) 30 mg IVPUSH Q6H PRN PRN Reason: Pain (moderate 4-6) Stop: 11/23/16 14:19 Last Admin: 11/19/16 11:15 Dose: 30 mg Lorazepam (Ativan) 0.5 - 1 mg IVPUSH Q4H PRN PRN Reason: Nausea/Vomiting Last Admin: 11/19/16 03:02 Dose: 1 mg Ondansetron HCl (Zofran Odt) 4 mg PO Q6H PRN PRN Reason: Nausea able to take PO Last Admin: 11/18/16 18:33 Dose: 4 mg Ondansetron HCl (Zofran) 4 mg IV Q6H PRN PRN Reason: Nausea/Vomiting Oxycodone HCl (Oxycodone) 5 mg PO Q4H PRN PRN Reason: Pain (moderate 4-6) Last Admin: 11/18/16 16:55 Dose: 5 mg Promethazine HCl (Phenergan) 25 mg PO Q4H PRN PRN Reason: Nausea/Vomiting Discontinued Medications Dexamethasone (Dexamethasone) Confirm Administered Dose 4 mg .ROUTE .STK-MED ONE Stop: 11/19/16 09:24 Fentanyl (Sublimaze) Confirm Administered Dose 100 mcg .ROUTE .STK-MED ONE Stop: 11/19/16 07:36 Fentanyl (Sublimaze) Confirm Administered Dose 100 mcg .ROUTE .STK-MED ONE Stop: 11/19/16 08:41 Hydromorphone HCl (Dilaudid) 0.5 mg IVPUSH ONETIME ONE Stop: 11/18/16 10:18 Last Admin: 11/18/16 10:29 Dose: 0.5 mg Hydromorphone HCl (Dilaudid) 1 mg IVPUSH ONETIME ONE Stop: 11/18/16 12:04 Last Admin: 11/18/16 12:21 Dose: 1 mg Sodium Chloride (Normal Saline) 1,000 mls @ 999 mls/hr IV ASDIRECTED [facility] Last Admin: 11/18/16 10:31 Dose: 999 mls/hr Sodium Chloride (Normal Saline) 75 mls @ 3 mls/sec IV ASDIRECTED [facility] Last Admin: 11/18/16 11:43 Dose: 3 mls/sec Potassium Chloride/Dextrose/Sod Cl (D5 1/2 Ns W/ 20 Meq/L Kcl) Confirm Administered Dose 1,000 mls @ as directed .ROUTE .STK-MED ONE Stop: 11/18/16 14:31 Last Admin: 11/18/16 14:59 Dose: Not Given Potassium Chloride 20 meq/Lidocaine HCl 2 ml/ Sodium Chloride 112 mls @ 55 mls/ hr IV Q2H [facility] Stop: 11/18/16 19:59 Last Admin: 11/18/16 17:42 Dose: 55 mls/hr Iopamidol (Isovue-300 (61%)) 100 ml IV . DIRECTED PRN PRN Reason: RADIOLOGY EXAM Stop: 11/19/16 11:28 Last Admin: 11/18/16 11:43 Dose: 100 ml Midazolam HCl (Versed 1 Mg/Ml) Confirm Administered Dose 2 mg .ROUTE .STK-MED ONE Stop: 11/19/16 07:37 Midazolam HCl (Versed 1 Mg/Ml) Confirm Administered Dose 2 mg .ROUTE .STK-MED ONE Stop: 11/19/16 08:41 Ondansetron HCl (Zofran) 4 mg IVPUSH ONETIME ONE Stop: 11/18/16 10:18 Last Admin: 11/18/16 10:28 Dose: 4 mg Ondansetron HCl (Zofran) Confirm Administered Dose 4 mg .ROUTE .STK-MED ONE Stop: 11/19/16 09:24 Polyethylene Glycol (Miralax) 238 gm PO ONETIME ONE Stop: 11/18/16 15:31 Last Admin: 11/18/16 15:18 Dose: 238 gm Propofol (Diprivan 20 Ml) Confirm Administered Dose 200 mg .ROUTE .STK-MED ONE Stop: 11/19/16 07:36 Propofol (Diprivan 20 Ml) Confirm Administered Dose 200 mg .ROUTE .STK-MED ONE Stop: 11/19/16 08:41 Sodium Chloride (Saline Flush) 10 ml FLUSH ONETIME ONE Stop: 11/18/16 11:28 Last Admin: 11/18/16 11:43 Dose: 10 ml - Exam Quality Assessment: No: supplemental oxygen General: alert, oriented, cooperative, no acute distress Neck: supple Lungs: Normal respiratory effort Abdomen: soft, no distension, tenderness Extremities: no edema Psy/Mental Status: alert, normal affect - Problem List Review Problem List Initiated/Reviewed/Updated: Yes - My Orders Last 24 Hours: My Active Orders 11/18/16 13:38 Resuscitation Status Routine 11/18/16 14:18 Patient Status [ADT] Routine Intake and Output [RC] QSHIFT Notify Provider Consults [RC] ASDIRECTED Notify Provider Vital Signs [RC] ASDIRECTED Oxygen Therapy [RC] PRN Up ad [place] [RC] ASDIRECTED VTE/DVT Education [RC] Per Unit Routine Vital Signs [RC] Q4H Consult to Physician [CONS] Routine Acetaminophen [Tylenol] 650 mg PO Q4H PRN HYDROmorphone [Dilaudid] 0.5 - 1 mg IVPUSH Q2H PRN Ketorolac [Toradol] 30 mg IVPUSH Q6H PRN LORazepam [Ativan] 0.5 - 1 mg IVPUSH Q4H PRN Ondansetron [Zofran ODT] 4 mg PO Q6H PRN Ondansetron [Zofran] 4 mg IV Q6H PRN Promethazine [Phenergan] 25 mg PO Q4H PRN oxyCODONE 5 mg PO Q4H PRN Sequential Compression Device [OM.PC] Per Unit Routine 11/18/16 22:00 D5 1/2 NS w/ 20 mEq/L KCl 1,000 ml IV ASDIRECTED 11/19/16 11:19 methylPREDNISolone Sod Succ [Solu-MEDROL] 125 mg IVPUSH ONETIME ONE 11/19/16 22:00 methylPREDNISolone Sod Succ [Solu-MEDROL] 62.5 mg IVPUSH Q8H - Plan Plan:: Assessment and plan - Right upper quadrant abdominal pain - CT showed some inflammation at the hepatic flexure. Colonoscopy was normal. Biopsies from the colonoscopy were taken and results are pending. Liver biopsy is pending. Inflammatory cause most likely with no fevers and no diarrhea. -Pain control -Antinausea medication -Trial of steroids -Empiric antibiotics if she becomes febrile Hypokalemia - improved with replacement Maintenance issues - - DVT prophylaxis - mechanical - GI prophylaxis - not indicated - Nutrition - advance diet as tolerated Disposition - anticipate discharge to home in 2-3 days Rigo Yoder M.D.
[2016-11-19] MEDS ORDERED: methylPREDNISolone Sodium Succinate 125 MG/2 ML SDV IVPUSH ONE (11:30)
[2016-11-19] MEDS: Ondansetron 4 MG/2 ML SDV IV PRN ×2 (13:35→21:28)
--- NOTE | 2016-11-19 16:51 | PCM.SURGPN ---
- General Info Date of Service: 11/19/16 Date of Surgery/Procedure: 11/16/16 POD#: 3 Functional Status: Denies: pain controlled Pain Score: 6 - Review of Systems General: Reports: No Symptoms Pulmonary: Reports: no symptoms Cardiovascular: Reports: No Symptoms Gastrointestinal: Reports: Abdominal pain, Nausea. Denies: Diarrhea Systems Review Comment:: Patient had EGD and liver biopsy on 11/16/2016 and was discharged to home. She presented to the ER on 11/18/2016 with increasing abdominal pain and associated nausea. The patient is scheduled for a colonoscopy later today on 11/19/2016. Her BPs were 140-145 systolic overnight and patient is afebrile. She voices no other complaints aside from diffuse upper abdominal pain rating it a 6/10. Her intake was 2340 mL and she had 2 BMs overnight. - Patient Data Vitals - most recent: Last Vital Signs Temp 36.6 C 11/19/16 14:23 Pulse 51 L 11/19/16 14:23 Resp 17 11/19/16 14:23 BP 144/97 H 11/19/16 14:23 Pulse Ox 97 11/19/16 14:23 Weight - most recent: 67.8 kg I&O - last 24 hours: Intake & Output 11/19/16 11/19/16 11/19/16 06:59 14:59 22:59 Intake Total 1125 360 Output Total 225 300 Balance 900 60 Lab Results last 24 hrs: Laboratory Results - last 24 hr 11/19/16 11/19/16 Range/Units 05:58 05:58 WBC 5.6 (4.5-11.0) K/uL RBC 3.70 (3.30-5.50) M/uL Hgb 10.3 L (12.0-15.0) g/dL Hct 31.7 L (36.0-48.0) % MCV 86 (80-98) fL MCH 28 (27-31) pg MCHC 33 (32-36) % Plt Count 159 (150-400) K/uL Sodium 140 (140-148) mmol/L Potassium 4.0 (3.6-5.2) mmol/L Chloride 107 (100-108) mmol/L Carbon Dioxide 24 (21-32) mmol/L Anion Gap 9.4 (5.0-14.0) mmol/L BUN 4 L (7-18) mg/dL Creatinine 0.6 (0.6-1.0) mg/dL Est Cr Clr Drug Dosing 109.29 mL/min Estimated GFR (MDRD) > 60 (>60) Glucose 109 H (74-106) mg/dL Calcium 7.8 L (8.5-10.1) mg/dL Total Bilirubin 0.3 (0.2-1.0) mg/dL AST 16 (15-37) U/L ALT 19 (12-78) U/L Alkaline Phosphatase 49 (46-116) U/L Total Protein 5.2 L (6.4-8.2) g/dL Albumin 2.9 L (3.4-5.0) g/dL Globulin 2.3 (2.3-3.5) g/dL Albumin/Globulin Ratio 1.3 (1.2-2.2) Med Orders - Current: Current Medications Acetaminophen (Tylenol) 650 mg PO Q4H PRN PRN Reason: Pain (Mild 1-3)/fever Hydromorphone HCl (Dilaudid) 0.5 - 1 mg IVPUSH Q2H PRN PRN Reason: Pain (severe 7-10) Last Admin: 11/19/16 15:27 Dose: 1 mg Potassium Chloride/Dextrose/Sod Cl (D5 1/2 Ns W/ 20 Meq/L Kcl) 1,000 mls @ 100 mls/hr IV ASDIRECTED [facility] Last Admin: 11/19/16 12:22 Dose: 100 mls/hr Ketorolac Tromethamine (Toradol) 30 mg IVPUSH Q6H PRN PRN Reason: Pain (moderate 4-6) Stop: 11/23/16 14:19 Last Admin: 11/19/16 11:15 Dose: 30 mg Lorazepam (Ativan) 0.5 - 1 mg IVPUSH Q4H PRN PRN Reason: Nausea/Vomiting Last Admin: 11/19/16 03:02 Dose: 1 mg Methylprednisolone Sodium Succinate (Solu-Medrol) 62.5 mg IVPUSH Q8H [facility] Ondansetron HCl (Zofran Odt) 4 mg PO Q6H PRN PRN Reason: Nausea able to take PO Last Admin: 11/18/16 18:33 Dose: 4 mg Ondansetron HCl (Zofran) 4 mg IV Q6H PRN PRN Reason: Nausea/Vomiting Last Admin: 11/19/16 13:35 Dose: 4 mg Oxycodone HCl (Oxycodone) 5 mg PO Q4H PRN PRN Reason: Pain (moderate 4-6) Last Admin: 11/18/16 16:55 Dose: 5 mg Promethazine HCl (Phenergan) 25 mg PO Q4H PRN PRN Reason: Nausea/Vomiting Discontinued Medications Dexamethasone (Dexamethasone) Confirm Administered Dose 4 mg .ROUTE .STK-MED ONE Stop: 11/19/16 09:24 Fentanyl (Sublimaze) Confirm Administered Dose 100 mcg .ROUTE .STK-MED ONE Stop: 11/19/16 07:36 Fentanyl (Sublimaze) Confirm Administered Dose 100 mcg .ROUTE .STK-MED ONE Stop: 11/19/16 08:41 Hydromorphone HCl (Dilaudid) 0.5 mg IVPUSH ONETIME ONE Stop: 11/18/16 10:18 Last Admin: 11/18/16 10:29 Dose: 0.5 mg Hydromorphone HCl (Dilaudid) 1 mg IVPUSH ONETIME ONE Stop: 11/18/16 12:04 Last Admin: 11/18/16 12:21 Dose: 1 mg Sodium Chloride (Normal Saline) 1,000 mls @ 999 mls/hr IV ASDIRECTED [facility] Last Admin: 11/18/16 10:31 Dose: 999 mls/hr Sodium Chloride (Normal Saline) 75 mls @ 3 mls/sec IV ASDIRECTED [facility] Last Admin: 11/18/16 11:43 Dose: 3 mls/sec Potassium Chloride/Dextrose/Sod Cl (D5 1/2 Ns W/ 20 Meq/L Kcl) Confirm Administered Dose 1,000 mls @ as directed .ROUTE .STK-MED ONE Stop: 11/18/16 14:31 Last Admin: 11/18/16 14:59 Dose: Not Given Potassium Chloride 20 meq/Lidocaine HCl 2 ml/ Sodium Chloride 112 mls @ 55 mls/ hr IV Q2H [facility] Stop: 11/18/16 19:59 Last Admin: 11/18/16 17:42 Dose: 55 mls/hr Iopamidol (Isovue-300 (61%)) 100 ml IV . DIRECTED PRN PRN Reason: RADIOLOGY EXAM Stop: 11/19/16 11:28 Last Admin: 11/18/16 11:43 Dose: 100 ml Methylprednisolone Sodium Succinate (Solu-Medrol) 125 mg IVPUSH ONETIME ONE Stop: 11/19/16 11:31 Last Admin: 11/19/16 12:06 Dose: 125 mg Midazolam HCl (Versed 1 Mg/Ml) Confirm Administered Dose 2 mg .ROUTE .STK-MED ONE Stop: 11/19/16 07:37 Midazolam HCl (Versed 1 Mg/Ml) Confirm Administered Dose 2 mg .ROUTE .STK-MED ONE Stop: 11/19/16 08:41 Ondansetron HCl (Zofran) 4 mg IVPUSH ONETIME ONE Stop: 11/18/16 10:18 Last Admin: 11/18/16 10:28 Dose: 4 mg Ondansetron HCl (Zofran) Confirm Administered Dose 4 mg .ROUTE .STK-MED ONE Stop: 11/19/16 09:24 Polyethylene Glycol (Miralax) 238 gm PO ONETIME ONE Stop: 11/18/16 15:31 Last Admin: 11/18/16 15:18 Dose: 238 gm Propofol (Diprivan 20 Ml) Confirm Administered Dose 200 mg .ROUTE .STK-MED ONE Stop: 11/19/16 07:36 Propofol (Diprivan 20 Ml) Confirm Administered Dose 200 mg .ROUTE .STK-MED ONE Stop: 11/19/16 08:41 Sodium Chloride (Saline Flush) 10 ml FLUSH ONETIME ONE Stop: 11/18/16 11:28 Last Admin: 11/18/16 11:43 Dose: 10 ml - Exam Wound/Incisions: dressing dry and intact General: alert, oriented HEENT: Pupils equal, Pupils reactive, EOMI, Mucous membr. moist/pink, Scleral icterus Lungs: Clear to auscultation, Normal respiratory effort Cardiovascular: Regular Rate, Regular Rhythm Abdomen: bowel sounds present, soft, no tenderness Extremities: no edema Skin: warm, dry, intact - Problem List Review Problem List Initiated/Reviewed/Updated: Yes - My Orders Last 24 Hours: Active Orders 24 hr Category Date Time Status Mechanical Soft Diet [DIET] Diet 11/19/16 Lunch Active D5 1/2 NS w/ 20 mEq/L KCl 1,000 ml Med 11/18/16 22:00 Active IV ASDIRECTED methylPREDNISolone Sod Succ [Solu-MEDROL] Med 11/19/16 22:00 Active 62.5 mg IVPUSH Q8H Medication Orders Acetaminophen (Tylenol) 650 mg PO Q4H PRN PRN Reason: Pain (Mild 1-3)/fever Hydromorphone HCl (Dilaudid) 0.5 - 1 mg IVPUSH Q2H PRN PRN Reason: Pain (severe 7-10) Last Admin: 11/19/16 15:27 Dose: 1 mg Admin: 11/19/16 12:20 Dose: 1 mg Admin: 11/19/16 10:16 Dose: 1 mg Admin: 11/19/16 07:29 Dose: 1 mg Admin: 11/19/16 00:31 Dose: 1 mg Admin: 11/18/16 22:09 Dose: 1 mg Admin: 11/18/16 18:37 Dose: 1 mg Potassium Chloride/Dextrose/Sod Cl (D5 1/2 Ns W/ 20 Meq/L Kcl) 1,000 mls @ 100 mls/hr IV ASDIRECTED [facility] Last Admin: 11/19/16 12:22 Dose: 100 mls/hr Infusion: 11/19/16 12:22 Dose: 100 mls/hr Admin: 11/19/16 07:14 Dose: 100 mls/hr Infusion: 11/19/16 07:14 Dose: 100 mls/hr Admin: 11/18/16 22:05 Dose: 100 mls/hr Ketorolac Tromethamine (Toradol) 30 mg IVPUSH Q6H PRN PRN Reason: Pain (moderate 4-6) Stop: 11/23/16 14:19 Last Admin: 11/19/16 11:15 Dose: 30 mg Admin: 11/18/16 14:52 Dose: 30 mg Lorazepam (Ativan) 0.5 - 1 mg IVPUSH Q4H PRN PRN Reason: Nausea/Vomiting Last Admin: 11/19/16 03:02 Dose: 1 mg Admin: 11/18/16 19:16 Dose: 1 mg Admin: 11/18/16 14:52 Dose: 0.5 mg Methylprednisolone Sodium Succinate (Solu-Medrol) 62.5 mg IVPUSH Q8H [facility] Ondansetron HCl (Zofran Odt) 4 mg PO Q6H PRN PRN Reason: Nausea able to take PO Last Admin: 11/18/16 18:33 Dose: 4 mg Ondansetron HCl (Zofran) 4 mg IV Q6H PRN PRN Reason: Nausea/Vomiting Last Admin: 11/19/16 13:35 Dose: 4 mg Oxycodone HCl (Oxycodone) 5 mg PO Q4H PRN PRN Reason: Pain (moderate 4-6) Last Admin: 11/18/16 16:55 Dose: 5 mg Promethazine HCl (Phenergan) 25 mg PO Q4H PRN PRN Reason: Nausea/Vomiting - Assessment Assessment (Free Text/Narrative):: 1. EGD 2. Liver biopsy 3. Colonoscopy - Plan Plan (Free Text/Narrative):: 1. Zofran 4 mg PRN nausea. 2. Toradol and Dilaudid PRN abdominal pain.
[2016-11-19] MEDS: methylPREDNISolone Sodium Succinate 125 MG/2 ML SDV IVPUSH SCH (21:33)
[2016-11-20] MEDS: HYDROmorphone 0.5 MG/0.5 ML Syringe IVPUSH PRN ×2 (00:33→06:31)
[2016-11-20] MEDS: oxyCODONE 5 MG Tab PO PRN ×3 (00:33→08:24)
[2016-11-20] MEDS: Acetaminophen 325 MG Tab PO PRN ×2 (04:34→08:23)
[2016-11-20] MEDS: methylPREDNISolone Sodium Succinate 125 MG/2 ML SDV IVPUSH SCH (05:38)
[2016-11-20 07:26] VITALS: BP 139/82
[2016-11-20] MEDS ORDERED: LORazepam 0.5 MG Tab PO ONE (11:32)
--- NOTE | 2016-11-20 11:45 | PCM.DCSUM1 ---
Discharge Summary - Hospital Course Brief History: 36-year-old female with tobacco dependence and recent admission for right upper quadrant pain who presented the day after discharge with worsening right upper quadrant pain. She was admitted for management of very mild suspected right upper quadrant colitis. - Discharge Data Discharge Date: 11/20/16 Discharge Disposition: Home, Self-Care 01 Condition: Good - Discharge Diagnosis/Problem(s) (1) Abdominal pain, acute, right upper quadrant SNOMED Code(s): 520723962 ICD Code: R10.11 - RIGHT UPPER QUADRANT PAIN Status: Acute (2) Colitis SNOMED Code(s): 59039767 ICD Code: K52.9 - NONINFECTIVE GASTROENTERITIS AND COLITIS, UNSPECIFIED Status: Acute (3) Tobacco dependence syndrome SNOMED Code(s): 31338568 ICD Code: F17.200 - NICOTINE DEPENDENCE, UNSPECIFIED, UNCOMPLICATED Status : Chronic - Patient Summary/Data Consults: Consultations 11/18/16 14:18 Consult to Physician [CONS] Routine Consulting Provider: Brandan Barron Courtesy Call Completed to Consulting Physician: Yes Reason for Consult: colitis Person Notified: CHAVEZ Date Notified: 11/18/16 Special Instructions: colonoscopy tomorrow morning Labs Pending at D/C: Pathology results for random colon biopsies Hospital Course: Irene presented with recurrent right upper quadrant abdominal pain after hospital discharge. Workup in the emergency room revealed probable mild colitis at the hepatic flexure. Laboratory testing was otherwise unremarkable. She was admitted to the hospital for further workup and pain control. Dr. Barron was consulted for a colonoscopy the next morning. Overnight her pain control did improve with narcotics and her nausea was adequately controlled. The colonoscopy was completed without incident the morning after admission. This was entirely normal with no evidence for inflammation or abnormality. Random biopsies were taken during the procedure to rule out microscopic colitis. With no fevers or diarrhea I suspect that this is either viral or inflammatory. I did start her on steroids the day before discharge and she did have a fair amount of improvement overnight into the morning of discharge. At this point her liver biopsy results are pending and colonoscopy biopsy results are pending. She feels well and has adequate pain control. She has been tolerating a diet with no vomiting. She feels well enough for discharge to home at this point. He did provide a prescription for a few pain pills and a few lorazepam to help with her nausea since this was the most beneficial medication. I will contact her and let her know what the pathology results show when they return. - Patient Instructions Diet: Regular Diet as Tolerated (soft and bland foods) Activity: As Tolerated Driving: Do Not Drive (if taking pain medications or lorazepam) Showering/Bathing: May Shower Notify Provider of: Fever, Increased Pain, Nausea and/or Vomiting Other/Special Instructions: 1. You were in the hospital for management of right upper quadrant abdominal pain with mild inflammation of the colon in the right upper quadrant as well as nausea. The exact cause was not determined but I suspect that you had either a viral infection or possibly an inflammatory condition causing the pain. There is no evidence for bacterial infection. Clinically everything appears to be improving. I do recommend 5-1/2 additional days of steroid therapy with prednisone. You should take 20 mg twice daily with meals for 5 doses. Your first dose is due tonight. After you complete these 5 doses then take 20 mg once daily for 3 days. You may use acetaminophen and/or ibuprofen for mild pains. You can use oxycodone as needed for more intense pains. You can use lorazepam for nausea. 2. I did send a prescription for Zoloft to the pharmacy. This medication can help manage both anxiety and depression. You should take this medication once daily. 3. Please seek medical attention if you develop fever greater than 101, persistent vomiting or severe diarrhea. - Discharge Plan Prescriptions/Med Rec: LORazepam 0.5 mg PO BID PRN #10 tablet PRN Reason: Nausea Sertraline [Zoloft] 25 mg PO DAILY #30 tablet oxyCODONE 5 mg PO Q4H PRN #20 tablet PRN Reason: Pain (Moderate 4-6) predniSONE [Prednisone] 20 mg PO ASDIRECTED #8 tablet Home Medications: Home Meds LORazepam 0.5 mg PO BID PRN #10 tablet 11/20/16 [Rx] Sertraline [Zoloft] 25 mg PO DAILY #30 tablet 11/20/16 [Rx] oxyCODONE 5 mg PO Q4H PRN #20 tablet 11/20/16 [Rx] predniSONE [Prednisone] 20 mg PO ASDIRECTED #8 tablet 11/20/16 [Rx] Patient Handouts: Oxycodone tablets or capsules, Nausea, Adult Referrals: PCP,None [Primary Care Provider] - (follow up if your symptoms do not continue to get better or they get worse) - Discharge Summary/Plan Comment DC Time >30 min.: No (25) - Patient Data Vitals - Most Recent: Last Vital Signs Temp 37.2 C 11/20/16 07:00 Pulse 61 11/20/16 07:00 Resp 16 11/20/16 07:00 BP 139/82 11/20/16 07:00 Pulse Ox 95 11/20/16 07:00 Weight - Most Recent: 67.8 kg I&O - Last 24 hours: Intake & Output 11/19/16 11/20/16 11/20/16 22:59 06:59 14:59 Intake Total 1353 1865 480 Output Total 550 1200 Balance 803 665 480 Med Orders - Current: Current Medications Acetaminophen (Tylenol) 650 mg PO Q4H PRN PRN Reason: Pain (Mild 1-3)/fever Last Admin: 11/20/16 08:23 Dose: 650 mg Hydromorphone HCl (Dilaudid) 0.5 - 1 mg IVPUSH Q2H PRN PRN Reason: Pain (severe 7-10) Last Admin: 11/20/16 06:31 Dose: 1 mg Potassium Chloride/Dextrose/Sod Cl (D5 1/2 Ns W/ 20 Meq/L Kcl) 1,000 mls @ 100 mls/hr IV ASDIRECTED [facility] Last Admin: 11/19/16 22:17 Dose: 100 mls/hr Ketorolac Tromethamine (Toradol) 30 mg IVPUSH Q6H PRN PRN Reason: Pain (moderate 4-6) Stop: 11/23/16 14:19 Last Admin: 11/19/16 21:30 Dose: 30 mg Methylprednisolone Sodium Succinate (Solu-Medrol) 62.5 mg IVPUSH Q8H [facility] Last Admin: 11/20/16 05:38 Dose: 62.5 mg Ondansetron HCl (Zofran Odt) 4 mg PO Q6H PRN PRN Reason: Nausea able to take PO Last Admin: 11/18/16 18:33 Dose: 4 mg Ondansetron HCl (Zofran) 4 mg IV Q6H PRN PRN Reason: Nausea/Vomiting Last Admin: 11/19/16 21:28 Dose: 4 mg Oxycodone HCl (Oxycodone) 5 mg PO Q4H PRN PRN Reason: Pain (moderate 4-6) Last Admin: 11/20/16 08:24 Dose: 5 mg Promethazine HCl (Phenergan) 25 mg PO Q4H PRN PRN Reason: Nausea/Vomiting Discontinued Medications Dexamethasone (Dexamethasone) Confirm Administered Dose 4 mg .ROUTE .STK-MED ONE Stop: 11/19/16 09:24 Fentanyl (Sublimaze) Confirm Administered Dose 100 mcg .ROUTE .STK-MED ONE Stop: 11/19/16 07:36 Fentanyl (Sublimaze) Confirm Administered Dose 100 mcg .ROUTE .STK-MED ONE Stop: 11/19/16 08:41 Hydromorphone HCl (Dilaudid) 0.5 mg IVPUSH ONETIME ONE Stop: 11/18/16 10:18 Last Admin: 11/18/16 10:29 Dose: 0.5 mg Hydromorphone HCl (Dilaudid) 1 mg IVPUSH ONETIME ONE Stop: 11/18/16 12:04 Last Admin: 11/18/16 12:21 Dose: 1 mg Sodium Chloride (Normal Saline) 1,000 mls @ 999 mls/hr IV ASDIRECTED [facility] Last Admin: 11/18/16 10:31 Dose: 999 mls/hr Sodium Chloride (Normal Saline) 75 mls @ 3 mls/sec IV ASDIRECTED [facility] Last Admin: 11/18/16 11:43 Dose: 3 mls/sec Potassium Chloride/Dextrose/Sod Cl (D5 1/2 Ns W/ 20 Meq/L Kcl) Confirm Administered Dose 1,000 mls @ as directed .ROUTE .STK-MED ONE Stop: 11/18/16 14:31 Last Admin: 11/18/16 14:59 Dose: Not Given Potassium Chloride 20 meq/Lidocaine HCl 2 ml/ Sodium Chloride 112 mls @ 55 mls/ hr IV Q2H [facility] Stop: 11/18/16 19:59 Last Admin: 11/18/16 17:42 Dose: 55 mls/hr Iopamidol (Isovue-300 (61%)) 100 ml IV . DIRECTED PRN PRN Reason: RADIOLOGY EXAM Stop: 11/19/16 11:28 Last Admin: 11/18/16 11:43 Dose: 100 ml Lorazepam (Ativan) 0.5 - 1 mg IVPUSH Q4H PRN PRN Reason: Nausea/Vomiting Last Admin: 11/19/16 23:41 Dose: 1 mg Lorazepam (Ativan) 0.5 mg PO ONETIME ONE Stop: 11/20/16 11:33 Last Admin: 11/20/16 11:40 Dose: 0.5 mg Methylprednisolone Sodium Succinate (Solu-Medrol) 125 mg IVPUSH ONETIME ONE Stop: 11/19/16 11:31 Last Admin: 11/19/16 12:06 Dose: 125 mg Midazolam HCl (Versed 1 Mg/Ml) Confirm Administered Dose 2 mg .ROUTE .STK-MED ONE Stop: 11/19/16 07:37 Midazolam HCl (Versed 1 Mg/Ml) Confirm Administered Dose 2 mg .ROUTE .STK-MED ONE Stop: 11/19/16 08:41 Ondansetron HCl (Zofran) 4 mg IVPUSH ONETIME ONE Stop: 11/18/16 10:18 Last Admin: 11/18/16 10:28 Dose: 4 mg Ondansetron HCl (Zofran) Confirm Administered Dose 4 mg .ROUTE .STK-MED ONE Stop: 11/19/16 09:24 Polyethylene Glycol (Miralax) 238 gm PO ONETIME ONE Stop: 11/18/16 15:31 Last Admin: 11/18/16 15:18 Dose: 238 gm Propofol (Diprivan 20 Ml) Confirm Administered Dose 200 mg .ROUTE .STK-MED ONE Stop: 11/19/16 07:36 Propofol (Diprivan 20 Ml) Confirm Administered Dose 200 mg .ROUTE .STK-MED ONE Stop: 11/19/16 08:41 Sodium Chloride (Saline Flush) 10 ml FLUSH ONETIME ONE Stop: 11/18/16 11:28 Last Admin: 11/18/16 11:43 Dose: 10 ml *Q Meaningful Use (DIS) - VTE *Q VTE Criteria *Q: - Stroke *Q Stroke Criteria *Q: - AMI *Q AMI Criteria *Q:
--- NOTE | 2016-11-23 12:36 | OR ---
DATE OF PROCEDURE: 11/19/2016 PREOPERATIVE DIAGNOSIS: Abdominal pain associated with possible thickening of the right colon. POSTOPERATIVE DIAGNOSIS: Grossly normal colonoscopy. PROCEDURE PERFORMED: Flexible colonoscopy with random colorectal biopsies to rule out microscopic colitis. ANESTHESIA: IV sedation. INDICATIONS FOR PROCEDURE: The patient was admitted with some recurrent abdominal pain. She was noted to have some thickening of the colon on the right side, potentially associated with some colitis. Plan is to proceed with a colonoscopy with biopsies and/or polypectomy as indicated. Potential risks including bleeding and perforation were discussed, and the patient wishes to proceed. DETAILS OF PROCEDURE: The patient was taken to the operating room and placed in a left lateral decubitus position. IV sedation was administered after which the initial digital rectal exam was performed and was unremarkable. Colonoscope was then passed into the rectum with retroflexion revealing uncomplicated hemorrhoidal columns. The scope was then passed to the level of the cecum. The prep was quite good with there only being a small amount of liquid stool present. To that level, no abnormalities were noted. there were no areas of diverticular disease. No areas of colitis or polyps or other signs of neoplasia especially on the right side of the colon. There was no thickening of the mucosa or reddening of it. At this point, bringing the scope to the back multiple colorectal biopsies were randomly obtained to rule out microscopic colitis. No bleeding or other problems were noted. The scope was then withdrawn. The procedure was concluded. The patient was taken to the recovery room in satisfactory condition. Brandan Barron MD /[id number]
== END 2016-11-20 12:30 | disposition home or self-care (01) | DRG 392 ==
LOC: JP.ED 09:49 → JP.MS 13:37
PROVIDERS: ADMIT Internal Medicine; ATTEND Internal Medicine
PROC: 0DBH8ZX Excision of Cecum, Via Natural or Artificial Opening Endoscopic, Diagnostic (ICD-10-PCS; principal; 2016-11-19)
DX: K52.89 Other specified noninfective gastroenteritis and colitis (principal); E87.6 Hypokalemia; F17.210 Nicotine dependence, cigarettes, uncomplicated; M54.9 Dorsalgia, unspecified; G89.29 Other chronic pain; F41.9 Anxiety disorder, unspecified; H54.7 Unspecified visual loss; Z79.52 Long term (current) use of systemic steroids; Z88.8 Allergy status to other drugs, medicaments and biological substances; R78.4 Finding of other drugs of addictive potential in blood
CPT/HCPCS: 36415; 71010; 71010-26; 74177; 80053; 80305; 81001; 82150; 83690; 85025; 85027; 86140; 88305; 96361; 96374; 96375; 99285-25; A9270-GY; J1100; J1170; J1885; J2060; J2250; J2405; J2704; J2930; J3010; J3480; J7030; J7040; J7050; Q9967

== ENCOUNTER 2016-11-23 10:47 | Emergency (ER) | payer MEDICAID ==
[2016-11-23 11:16] VITALS: BP 189/95
--- NOTE | 2016-11-23 11:28 | EDM.PDOC ---
ED HPI GENERAL MEDICAL PROBLEM - General Chief Complaint: Abdominal Pain Stated Complaint: STOMACH PAIN Time Seen by Provider: 11/23/16 11:23 Source of Information: Reports: Patient, Family History Limitations: Reports: No Limitations - History of Present Illness INITIAL COMMENTS - FREE TEXT/NARRATIVE: Pt with right upper quadrant pain since last Saturday. Has had 2 CT scans, colonoscopy and EGD. Has had liver and colon biopsies. Being seen by the surgeons. Biopsies pending. Does note urinary frequency as well. Onset: Gradual Duration: Week(s): Location: Reports: Abdomen Quality: Reports: Ache Severity: Moderate Improves with: Reports: None Worsens with: Reports: None Associated Symptoms: Reports: No Other Symptoms, Nausea/Vomiting (this am) - Related Data Allergies Allergy/AdvReac Type Severity Reaction Status Date / Time varenicline tartrate AdvReac Other Verified 11/15/16 10:53 [From Chantix] Home Meds: Home Meds LORazepam 0.5 mg PO BID PRN #10 tablet 11/20/16 [Rx] Sertraline [Zoloft] 25 mg PO DAILY #30 tablet 11/20/16 [Rx] oxyCODONE 5 mg PO Q4H PRN #20 tablet 11/20/16 [Rx] predniSONE [Prednisone] 20 mg PO ASDIRECTED #8 tablet 11/20/16 [Rx] Past Medical History HEENT History: Reports: Impaired Vision Gastrointestinal History: Reports: Cholelithiasis Genitourinary History: Reports: None [employer] History: Reports: Musculoskeletal History: Reports: Back Pain, Chronic, Other (See Below) Other Musculoskeletal History: chronic knee pain Neurological History: Reports: Concussion, Migraines Psychiatric History: Reports: Anxiety - Infectious Disease History Infectious Disease History: Reports: Chicken Pox - Past Surgical History GI Surgical History: Reports: Cholecystectomy, Hernia Repair/Other Female Surgical History: Reports: Section, Tubal Ligation Musculoskeletal Surgical History: Reports: Arthroscopic Knee, Arthroscopic Procedure, Ganglion Cyst Social & Family History - Family History Family Medical History: Unobtainable - Tobacco Use Smoking Status *Q: Current Every Day Smoker Years of Tobacco use: 15 Packs/Tins Daily: 0.5 Used Tobacco, but Quit: No Month Tobacco Last Used: November Second Hand Smoke Exposure: Yes - Caffeine Use Caffeine Use: Reports: Soda - Alcohol Use Days Per Week of Alcohol Use: 0 - Recreational Drug Use Recreational Drug Use: No ED ROS GENERAL - Review of Systems Review Of Systems: See Below Constitutional: Reports: Chills HEENT: Reports: No Symptoms Respiratory: Reports: No Symptoms Cardiovascular: Reports: No Symptoms Endocrine: Reports: No Symptoms GI/Abdominal: Reports: Abdominal Pain, Vomiting (this am x 1), Other (last bm this am) : Reports: Frequency Musculoskeletal: Reports: No Symptoms Skin: Reports: No Symptoms Neurological: Reports: No Symptoms Psychiatric: Reports: Anxiety (saw her counselor this am) ED EXAM, GI/ABD - Physical Exam Exam: See Below Exam Limited By: No Limitations General Appearance: Alert, WD/WN, No Apparent Distress, Mild Distress (rates pain 7. Last pain meds last night about 11.) Eyes: Bilateral: Normal Appearance, EOMI Ears: Normal External Exam, Normal Canal, Hearing Grossly Normal, Normal TMs Nose: Normal Inspection, Normal Mucosa, No Blood Throat/Mouth: Normal Inspection, Normal Lips, Normal Teeth, Normal Gums, Normal Oropharynx, Normal Voice, No Airway Compromise Head: Atraumatic, Normocephalic Neck: Normal Inspection, Supple, Non-Tender, Full Range of Motion Respiratory/Chest: No Respiratory Distress, Lungs Clear, Normal Breath Sounds, No Accessory Muscle Use, Chest Non-Tender Cardiovascular: Normal Peripheral Pulses, Regular Rate, Rhythm, No Edema, No Gallop, No JVD, No Murmur, No Rub GI/Abdominal: Normal Bowel Sounds, Soft, Tenderness (right upper quadrant), Hepatomegaly Extremities: Normal Inspection, Normal Range of Motion, Non-Tender, Normal Capillary Refill, No Pedal Edema Course - Vital Signs Last Recorded V/S: Last Vital Signs Temp 98.2 F 11/23/16 11:12 Pulse 63 11/23/16 11:13 Resp 16 11/23/16 11:12 BP 189/95 H 11/23/16 11:13 Pulse Ox 98 11/23/16 11:12 - Orders/Labs/Meds Labs: Laboratory Tests 11/23/16 11/23/16 11/23/16 Range/Units 11:33 11:46 11:46 WBC 11.1 H (4.5-11.0) K/uL RBC 4.02 (3.30-5.50) M/uL Hgb 11.1 L (12.0-15.0) g/dL Hct 34.3 L (36.0-48.0) % MCV 85 (80-98) fL MCH 28 (27-31) pg MCHC 32 (32-36) % Plt Count 246 (150-400) K/uL Neut % (Auto) 79 H (36-66) % Lymph % (Auto) 14 L (24-44) % [place] % (Auto) 6 (2-6) % Eos % (Auto) 1 L (2-4) % Baso % (Auto) 0 (0-1) % Sodium 138 L (140-148) mmol/L Potassium 3.4 L (3.6-5.2) mmol/L Chloride 102 (100-108) mmol/L Carbon Dioxide 29 (21-32) mmol/L Anion Gap 10.4 (5.0-14.0) mmol/L BUN 11 D (7-18) mg/dL Creatinine 0.7 (0.6-1.0) mg/dL Est Cr Clr Drug Dosing 93.68 mL/min Estimated GFR (MDRD) > 60 (>60) Glucose 103 (74-106) mg/dL Calcium 8.9 (8.5-10.1) mg/dL Total Bilirubin 0.3 (0.2-1.0) mg/dL AST 24 (15-37) U/L ALT 50 D (12-78) U/L Alkaline Phosphatase 64 (46-116) U/L Total Protein 6.6 (6.4-8.2) g/dL Albumin 3.7 (3.4-5.0) g/dL Globulin 2.9 (2.3-3.5) g/dL Albumin/Globulin Ratio 1.3 (1.2-2.2) Urine Color Yellow Urine Appearance Clear Urine pH 8.0 (4.5-8.0) Ur Specific [place] 1.015 (1.008-1.030) Urine Protein Negative (NEGATIVE) mg/dL Urine Glucose (UA) Normal (NEGATIVE) mg/dL Urine Ketones Negative (NEGATIVE) mg/dL Urine Occult Blood Negative (NEGATIVE) Urine Nitrite Negative (NEGATIVE) Urine Bilirubin Negative (NEGATIVE) Urine Urobilinogen Normal (NORMAL) mg/dL Ur Leukocyte Esterase Negative (NEGATIVE) Meds: Medications Discontinued Medications Generic Name Dose Route Start Last Admin Trade Name Freq PRN Reason Stop Dose Admin Lorazepam 0.5 mg 11/23/16 12:25 11/23/16 12:41 Ativan PO 11/23/16 12:26 0.5 mg ONETIME ONE Administration Departure - Departure Time of Disposition: 12:48 Disposition: Home, Self-Care 01 Condition: good Clinical Impression: Right upper quadrant abdominal pain - Discharge Information Referrals: PCP,None [Primary Care Provider] - Forms: ED Department Discharge Additional Instructions: Previous notes, tests and reports reviewed today. Biopsy of colon appears to be normal. Biopsy of liver pending. CBC mildly elevated at 11.1. UA negative. CMP shows only mild hypokalemia. Liver function tests normal. Pt becomes anxious during her workup and reports chest pain. Lorazepam po given with excellent results. Surgeon, Dr Barron contacted via phone. He does not feel that she has anything surgical at this time. Will discharge her home pending liver biopsy results. To continue pain management and advance activity slowly. To followup with surgery as needed. She voices understanding and is in agreement with plan. - Problem List & Annotations (1) Abdominal pain, acute, right upper quadrant SNOMED Code(s): 635186806 Code(s): R10.11 - RIGHT UPPER QUADRANT PAIN Status: Acute Priority: Medium Current Visit: No - Problem List Review Problem List Initiated/Reviewed/Updated: Yes
[2016-11-23] MEDS ORDERED: LORazepam 0.5 MG Tab PO ONE (12:25)
== END 2016-11-23 13:11 | disposition home or self-care (01) ==
LOC: JP.ED 10:47
DX: R10.11 Right upper quadrant pain (principal); F17.210 Nicotine dependence, cigarettes, uncomplicated; G43.909 Migraine, unspecified, not intractable, without status migrainosus; F41.9 Anxiety disorder, unspecified; Z90.49 Acquired absence of other specified parts of digestive tract; Z98.890 Other specified postprocedural states; Z79.899 Other long term (current) drug therapy; Z88.8 Allergy status to other drugs, medicaments and biological substances
CPT/HCPCS: 36415; 80053; 81003; 85025; 99284; A9270

== ENCOUNTER 2016-12-29 15:59 | Emergency (ER) | payer MEDICAID ==
[2016-12-29 16:58] VITALS: BP 118/82
[2016-12-29] MEDS ORDERED: Ketorolac 60 MG/2 ML SDV IM ONE (17:25)
--- NOTE | 2016-12-29 18:35 | EDM.PDOC ---
ED HPI GENERAL MEDICAL PROBLEM - General Chief Complaint: Lower Extremity Injury/Pain Stated Complaint: RIGHT FOOT PAIN Time Seen by Provider: 12/29/16 16:53 Source of Information: Reports: Patient History Limitations: Reports: No Limitations - History of Present Illness INITIAL COMMENTS - FREE TEXT/NARRATIVE: 36 yo female present with right medial ankle pain. She does recall twisting ankle yesterday but no pain at that time. woke this AM with pain when she flexed foot she was able to walk on foot. The pain did not wake her. Pain has continued throughout the day. Tylenol 2-3 hours ago with mild relief. 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: Musculoskeletal History: Reports: Back Pain, Chronic, Other (See Below) Other Musculoskeletal History: chronic knee pain Neurological History: Reports: Concussion, Migraines Psychiatric History: Reports: Anxiety - Infectious Disease History Infectious Disease History: Reports: Chicken Pox - Past Surgical History GI Surgical History: Reports: Cholecystectomy, Hernia Repair/Other Female Surgical History: Reports: Section, Tubal Ligation Musculoskeletal Surgical History: Reports: Arthroscopic Knee, Arthroscopic Procedure, Ganglion Cyst Social & Family History - Family History Family Medical History: Unobtainable - Tobacco Use Smoking Status *Q: Current Every Day Smoker Years of Tobacco use: 15 Packs/Tins Daily: 1 Used Tobacco, but Quit: No Month Tobacco Last Used: November Second Hand Smoke Exposure: Yes - Caffeine Use Caffeine Use: Reports: Soda - Alcohol Use Days Per Week of Alcohol Use: 0 - Recreational Drug Use Recreational Drug Use: No Review of Systems - Review of Systems Review Of Systems: See Below Respiratory: Denies: Shortness of Breath, Wheezing Cardiovascular: Denies: Chest Pain Musculoskeletal: Reports: Joint Pain ED EXAM, GENERAL - Physical Exam Exam: See Below Exam Limited By: No Limitations General Appearance: Alert, WD/WN, No Apparent Distress Respiratory/Chest: No Respiratory Distress, Lungs Clear. No: Crackles, Rhonchi , Wheezing Cardiovascular: Regular Rate, Rhythm, No Murmur Extremities: Leg Pain (medial tenderness of distal right ankle/lower leg. no edema, erythema, ecchymosis. pedal pulses normal, cap refill of foot normal no edema in foot) Course - Vital Signs Last Recorded V/S: Last Vital Signs Temp 36.7 C 12/29/16 16:56 Pulse 55 L 12/29/16 16:56 Resp 14 12/29/16 16:56 BP 118/82 12/29/16 16:56 Pulse Ox - Orders/Labs/Meds Orders: Active Orders 24 hr Category Date Time Status Ankle Min 3V Rt [CR] Stat Exams 12/29/16 17:23 Taken Labs: Laboratory Tests 12/29/16 Range/Units 17:40 Sodium 138 L (140-148) mmol/L Potassium 3.6 (3.6-5.2) mmol/L Chloride 103 (100-108) mmol/L Carbon Dioxide 26 (21-32) mmol/L Anion Gap 12.6 (5.0-14.0) mmol/L BUN 8 (7-18) mg/dL Creatinine 0.7 (0.6-1.0) mg/dL Est Cr Clr Drug Dosing 93.68 mL/min Estimated GFR (MDRD) > 60 (>60) Glucose 92 (74-106) mg/dL Calcium 8.8 (8.5-10.1) mg/dL Meds: Medications Discontinued Medications Generic Name Dose Route Start Last Admin Trade Name Freq PRN Reason Stop Dose Admin Ketorolac Tromethamine 60 mg 12/29/16 17:25 12/29/16 17:55 Toradol IM 12/29/16 17:26 60 mg ONETIME ONE Administration - Re-Assessments/Exams Free Text/Narrative Re-Assessment/Exam: 12/29/16 22:48 pain improved with IM medication. pt able to ambulate with little difficulty Departure - Departure Time of Disposition: 18:34 Disposition: Home, Self-Care 01 Condition: Good Clinical Impression: Lower leg pain Qualifiers: Laterality: right Qualified Code(s): M79.661 - Pain in right lower leg - Discharge Information Instructions: Ankle Sprain, [id number] Referrals: PCP,None [Primary Care Provider] - Forms: ED Department Discharge Additional Instructions: light stretching to calf activity as tolerated Ibuprofen 400-600 mg every 6 hours as needed for pain return if your foot become swollen or red or blue - My Orders Last 24 Hours: My Active Orders 12/29/16 17:23 Ankle Min 3V Rt [CR] Stat - Assessment/Plan Last 24 Hours: My Active Orders 12/29/16 17:23 Ankle Min 3V Rt [CR] Stat
--- NOTE | 2016-12-31 09:22 | CR ---
Ankle Min 3V Rt HISTORY: Pain COMPARISON: None FINDINGS: No fracture or dislocation. No bony destructive process.
== END 2016-12-29 18:58 | disposition home or self-care (01) ==
LOC: JP.ED 15:59
DX: M79.661 Pain in right lower leg (principal); H54.7 Unspecified visual loss; F17.210 Nicotine dependence, cigarettes, uncomplicated; G43.909 Migraine, unspecified, not intractable, without status migrainosus; Z88.8 Allergy status to other drugs, medicaments and biological substances; Z79.899 Other long term (current) drug therapy; Z90.49 Acquired absence of other specified parts of digestive tract; Z98.51 Tubal ligation status
CPT/HCPCS: 36415; 73610; 80048; 96372; 99284; J1885

== ENCOUNTER 2017-02-11 09:25 | Emergency (ER) | payer MEDICAID ==
[2017-02-11 09:39] VITALS: BP 136/81
[2017-02-11] MEDS ORDERED: Alum Hydrox/Mag Hydrox/Simeth 15 ML, Lidocaine 2% 15 ML PO ONE ×2 (09:54)
--- NOTE | 2017-02-11 10:04 | EDM.PDOC ---
ED HPI GENERAL MEDICAL PROBLEM - General Chief Complaint: Abdominal Pain Stated Complaint: CHEST PRESSURE Time Seen by Provider: 02/11/17 09:45 Source of Information: Reports: Patient History Limitations: Reports: No Limitations - History of Present Illness INITIAL COMMENTS - FREE TEXT/NARRATIVE: 37-year-old female with epigastric pain and pressure substernally with some pain radiating to her left shoulder and left back for months. It's been worse the last couple of days. She takes no antacids or medications for her stomach. Within the last 2 months she's had several visits for similar symptoms, a thorough workup including 2 CAT scans, colonoscopy, EGD, liver biopsy and everything has turned out negative except an elevated alpha-1 antitrypsin level in the liver. She was set up for a GI consultation but "didn't make it". No fevers or chills. Denies nausea vomiting. 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: Musculoskeletal History: Reports: Back Pain, Chronic, Other (See Below) Other Musculoskeletal History: chronic knee pain Neurological History: Reports: Concussion, Migraines Psychiatric History: Reports: Anxiety - Infectious Disease History Infectious Disease History: Reports: Chicken Pox - Past Surgical History GI Surgical History: Reports: Cholecystectomy, Hernia Repair/Other Female Surgical History: Reports: Section, Tubal Ligation Musculoskeletal Surgical History: Reports: Arthroscopic Knee, Arthroscopic Procedure, Ganglion Cyst Social & Family History - Family History Family Medical History: Unobtainable - Tobacco Use Smoking Status *Q: Current Every Day Smoker Years of Tobacco use: 15 Packs/Tins Daily: 1 Used Tobacco, but Quit: No Month Tobacco Last Used: November Second Hand Smoke Exposure: Yes - Caffeine Use Caffeine Use: Reports: Soda - Alcohol Use Days Per Week of Alcohol Use: 0 - Recreational Drug Use Recreational Drug Use: No ED ROS GENERAL - Review of Systems Review Of Systems: See Below Constitutional: Denies: Fever, Chills, Malaise Respiratory: Reports: Shortness of Breath (Intermittent, especially with activity) Cardiovascular: Reports: Chest Pain (Substernal pressure) GI/Abdominal: Reports: Abdominal Pain. Denies: Diarrhea, Nausea, Vomiting : Reports: No Symptoms Musculoskeletal: Reports: Other (Struggling with wrist pain due to ganglion cysts, left shoulder pain) Skin: Reports: No Symptoms Neurological: Reports: No Symptoms ED EXAM, GI/ABD - Physical Exam Exam: See Below Exam Limited By: No Limitations General Appearance: Alert, No Apparent Distress Eyes: Bilateral: Normal Appearance (No jaundice), EOMI Respiratory/Chest: No Respiratory Distress, Lungs Clear Cardiovascular: Regular Rate, Rhythm GI/Abdominal Exam: Soft, Tender (Tender directly over the epigastric area, no guarding) Extremities: Other (Some palpation tenderness just under the left scapula, no rash or asymmetry) Course - Vital Signs Last Recorded V/S: Last Vital Signs Temp 97.6 F 02/11/17 09:38 Pulse 70 02/11/17 09:38 Resp 18 02/11/17 09:38 BP 136/81 02/11/17 09:38 Pulse Ox 100 02/11/17 09:38 - Orders/Labs/Meds Meds: Medications Discontinued Medications Generic Name Dose Route Start Last Admin Trade Name Freq PRN Reason Stop Dose Admin Al Hydroxide/Mg Hydroxide 15 0 ml 02/11/17 09:54 02/11/17 09:59 ml/ Lidocaine HCl 15 ml PO 02/11/17 09:55 15 ml ONETIME ONE Administration - Re-Assessments/Exams Free Text/Narrative Re-Assessment/Exam: 02/11/17 10:47 Patient was given a GI cocktail which almost resolved her discomfort. In review of her records there is a possibility of her having alpha-1 antitrypsinase deficiency which needs to be evaluated. We are contacting the surgery department so she can reschedule her GI consultation. She'll be started on 20 mg of omeprazole daily to take before meals. Departure - Departure Time of Disposition: 11:10 Disposition: Home, Self-Care 01 Condition: Good Clinical Impression: Gastritis Qualifiers: Gastritis type: unspecified gastritis Chronicity: chronic Gastritis bleeding: without bleeding Qualified Code(s): K29.50 - Unspecified chronic gastritis without bleeding - Discharge Information Instructions: Abdominal Pain, Adult, [id number] Referrals: PCP,None [Primary Care Provider] - Forms: ED Department Discharge Care Plan Goals: Take the omeprazole daily as prescribed, 20 minutes before a meal is the best time. Consider stopping smoking if possible and you should be getting contacted about rescheduling your gastroenterology consult. Alpha I antitrypsinase deficiency is your possible diagnosis.
== END 2017-02-11 11:10 | disposition home or self-care (01) ==
LOC: JP.ED 09:25
DX: K29.50 Unspecified chronic gastritis without bleeding (principal); F41.9 Anxiety disorder, unspecified; F17.210 Nicotine dependence, cigarettes, uncomplicated; Z90.49 Acquired absence of other specified parts of digestive tract; Z98.51 Tubal ligation status; Z98.890 Other specified postprocedural states; Z79.899 Other long term (current) drug therapy; Z88.8 Allergy status to other drugs, medicaments and biological substances
CPT/HCPCS: 99285; A9270

== ENCOUNTER 2017-03-06 08:34 | Emergency (ER) | payer MEDICAID ==
[2017-03-06 08:42] VITALS: BP 136/84
--- NOTE | 2017-03-06 09:10 | EDM.PDOC ---
ED HPI GENERAL MEDICAL PROBLEM - General Chief Complaint: Chest Pain Stated Complaint: DIZZY FEELS LIKE PASSING OUT Time Seen by Provider: 03/06/17 09:10 Source of Information: Reports: Patient History Limitations: Reports: No Limitations - History of Present Illness INITIAL COMMENTS - FREE TEXT/NARRATIVE: pt arrived with a history of passing out for 3-4 minutes. She was with her boyfriend. She was sitting in a chair. She had been a little upset regarding a Dr office visit yesterday. When he came back to the room she had passed out and he could not arouse her for 3-4 minutes. She did have the sensation that her heart was racing and that she was short of breath prior to this happening. Onset: Today Duration: Minutes: Location: Reports: Other ( today she has a funney feeling in her head and she has some numbness or tingling in her left arm. 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: Musculoskeletal History: Reports: Back Pain, Chronic, Other (See Below) Other Musculoskeletal History: chronic knee pain Neurological History: Reports: Concussion, Migraines Psychiatric History: Reports: Anxiety - Infectious Disease History Infectious Disease History: Reports: Chicken Pox - Past Surgical History GI Surgical History: Reports: Cholecystectomy, Hernia Repair/Other Female Surgical History: Reports: Section, Tubal Ligation Musculoskeletal Surgical History: Reports: Arthroscopic Knee, Arthroscopic Procedure, Ganglion Cyst Social & Family History - Family History Family Medical History: Unobtainable - Tobacco Use Smoking Status *Q: Current Every Day Smoker Years of Tobacco use: 15 Packs/Tins Daily: 0.5 Used Tobacco, but Quit: No Month Tobacco Last Used: November Second Hand Smoke Exposure: Yes - Caffeine Use Caffeine Use: Reports: Soda - Alcohol Use Days Per Week of Alcohol Use: 0 - Recreational Drug Use Recreational Drug Use: No ED ROS GENERAL - Review of Systems Review Of Systems: See Below Constitutional: Reports: No Symptoms HEENT: Reports: No Symptoms Respiratory: Reports: No Symptoms Cardiovascular: Reports: Other (pt felt like her heart was racing before she passed out. ) Endocrine: Reports: No Symptoms GI/Abdominal: Reports: No Symptoms : Reports: No Symptoms Musculoskeletal: Reports: No Symptoms Skin: Reports: No Symptoms Neurological: Reports: Syncope Psychiatric: Reports: No Symptoms ED EXAM, GENERAL - Physical Exam Exam: See Below Free Text/Narrative:: pt is alert and all vitals are stable . She has a sensation that she is not thinking quite right. She has numbness and tingling in her left arm. Exam Limited By: No Limitations General Appearance: Alert, Anxious Ears: Normal TMs Nose: Normal Inspection Throat/Mouth: Normal Inspection Head: Atraumatic Neck: Normal Inspection Respiratory/Chest: No Respiratory Distress Cardiovascular: Regular Rate, Rhythm GI/Abdominal: Soft, Non-Tender (Female) Exam: Deferred Rectal (Female) Exam: Deferred Back Exam: Normal Inspection Extremities: Normal Inspection, Other (pt has normal strength bilateral. ) Neurological: Alert, Oriented, Normal Cognition Psychiatric: Anxious Course - Vital Signs Last Recorded V/S: Last Vital Signs Temp 36.4 C 03/06/17 08:39 Pulse 70 03/06/17 08:39 Resp 18 03/06/17 08:39 BP 136/84 03/06/17 08:39 Pulse Ox 97 03/06/17 08:39 Orthostatic Blood Pressure [ 113/76 Standing] Orthostatic Blood Pressure [ 114/77 Sitting] Orthostatic Blood Pressure [ 105/71 Supine] - Orders/Labs/Meds Labs: Laboratory Tests 03/06/17 03/06/17 03/06/17 Range/Units 09:16 09:16 09:16 WBC 9.1 (4.5-11.0) K/uL RBC 4.54 (3.30-5.50) M/uL Hgb 12.6 (12.0-15.0) g/dL Hct 38.2 (36.0-48.0) % MCV 84 (80-98) fL MCH 28 (27-31) pg MCHC 33 (32-36) % Plt Count 200 (150-400) K/uL Neut % (Auto) 73 H (36-66) % Lymph % (Auto) 20 L (24-44) % [place] % (Auto) 5 (2-6) % Eos % (Auto) 2 (2-4) % Baso % (Auto) 0 (0-1) % Sodium 139 L (140-148) mmol/L Potassium 3.6 (3.6-5.2) mmol/L Chloride 106 (100-108) mmol/L Carbon Dioxide 23 (21-32) mmol/L Anion Gap 13.6 (5.0-14.0) mmol/L BUN 7 (7-18) mg/dL Creatinine 0.6 (0.6-1.0) mg/dL Est Cr Clr Drug Dosing 108.22 mL/min Estimated GFR (MDRD) > 60 (>60) Glucose 110 H (74-106) mg/dL Calcium 8.5 (8.5-10.1) mg/dL Total Bilirubin 0.3 (0.2-1.0) mg/dL AST 11 L (15-37) U/L ALT 18 (12-78) U/L Alkaline Phosphatase 61 (46-116) U/L Creatine Kinase 53 (26-192) U/L Troponin I < 0.017 (0.000-0.056) ng/mL Total Protein 7.0 (6.4-8.2) g/dL Albumin 3.7 (3.4-5.0) g/dL Globulin 3.3 (2.3-3.5) g/dL Albumin/Globulin Ratio 1.1 L (1.2-2.2) Urine Color Urine Appearance Urine pH (4.5-8.0) Ur Specific [place] (1.008-1.030) Urine Protein (NEGATIVE) mg/dL Urine Glucose (UA) (NEGATIVE) mg/dL Urine Ketones (NEGATIVE) mg/dL Urine Occult Blood (NEGATIVE) Urine Nitrite (NEGATIVE) Urine Bilirubin (NEGATIVE) Urine Urobilinogen (NORMAL) mg/dL Ur Leukocyte Esterase (NEGATIVE) Urine RBC (0-5) Urine WBC (0-5) Ur Epithelial Cells Amorphous Sediment Urine Bacteria Urine Mucus 03/06/17 Range/Units 10:12 WBC (4.5-11.0) K/uL RBC (3.30-5.50) M/uL Hgb (12.0-15.0) g/dL Hct (36.0-48.0) % MCV (80-98) fL MCH (27-31) pg MCHC (32-36) % Plt Count (150-400) K/uL Neut % (Auto) (36-66) % Lymph % (Auto) (24-44) % [place] % (Auto) (2-6) % Eos % (Auto) (2-4) % Baso % (Auto) (0-1) % Sodium (140-148) mmol/L Potassium (3.6-5.2) mmol/L Chloride (100-108) mmol/L Carbon Dioxide (21-32) mmol/L Anion Gap (5.0-14.0) mmol/L BUN (7-18) mg/dL Creatinine (0.6-1.0) mg/dL Est Cr Clr Drug Dosing mL/min Estimated GFR (MDRD) (>60) Glucose (74-106) mg/dL Calcium (8.5-10.1) mg/dL Total Bilirubin (0.2-1.0) mg/dL AST (15-37) U/L ALT (12-78) U/L Alkaline Phosphatase (46-116) U/L Creatine Kinase (26-192) U/L Troponin I (0.000-0.056) ng/mL Total Protein (6.4-8.2) g/dL Albumin (3.4-5.0) g/dL Globulin (2.3-3.5) g/dL Albumin/Globulin Ratio (1.2-2.2) Urine Color Yellow Urine Appearance Slightly cloudy Urine pH 5.0 (4.5-8.0) Ur Specific [place] 1.010 (1.008-1.030) Urine Protein Negative (NEGATIVE) mg/dL Urine Glucose (UA) Normal (NEGATIVE) mg/dL Urine Ketones Negative (NEGATIVE) mg/dL Urine Occult Blood Negative (NEGATIVE) Urine Nitrite Negative (NEGATIVE) Urine Bilirubin Negative (NEGATIVE) Urine Urobilinogen Normal (NORMAL) mg/dL Ur Leukocyte Esterase Negative (NEGATIVE) Urine RBC 0-5 (0-5) Urine WBC 0-5 (0-5) Ur Epithelial Cells Few Amorphous Sediment Few Urine Bacteria Moderate Urine Mucus Not seen Meds: Medications Discontinued Medications Generic Name Dose Route Start Last Admin Trade Name Alejo PRN Reason Stop Dose Admin Sodium Chloride 1,000 mls @ 250 mls/hr 03/06/17 10:00 03/06/17 10:26 Normal Saline IV 250 mls/hr ASDIRECTED PENDING SALE TO [facility] Administration - Re-Assessments/Exams Free Text/Narrative Re-Assessment/Exam: 03/06/17 10:33 pt had a normal orthostatics. Her cat scan of the head is normal. her ekg looks good. Her cardiac enzymes are normal, Her other lab work looks good. Will place on a holter monitor. Departure - Departure Time of Disposition: 10:36 Disposition: Home, Self-Care 01 Condition: Fair Clinical Impression: Arrhythmia, Syncope Instructions: Palpitations, [id number], Syncope, [id number] Referrals: PCP,None [Primary Care Provider] - Forms: ED Department Discharge Care Plan Goals: schedule 48 hour navarro monitor. rtc if this should occur again,
[2017-03-06] MEDS ORDERED: Sodium Chloride 0.9% 1,000 ML IV SCH (10:00)
--- NOTE | 2017-03-06 10:35 | CT ---
Head wo Cont Total DLP 665 mGycm. INDICATION: black out numbness in left arm., COMPARISON: CT 09/17/2013. FINDINGS: Negative head CT. No acute intracranial hemorrhage, mass, or edema. IMPRESSION: Negative Exam.
== END 2017-03-06 11:29 | disposition home or self-care (01) ==
LOC: JP.ED 08:34
DX: R55 Syncope and collapse (principal); I49.9 Cardiac arrhythmia, unspecified; G43.909 Migraine, unspecified, not intractable, without status migrainosus; F17.210 Nicotine dependence, cigarettes, uncomplicated; Z88.8 Allergy status to other drugs, medicaments and biological substances; Z79.899 Other long term (current) drug therapy
CPT/HCPCS: 36415; 70450; 80053; 81001; 82550; 84484; 85025; 93005; 93225; 93226; 96360; 99285; J7040

== ENCOUNTER 2017-07-27 17:31 | Emergency (ER) | payer MEDICAID ==
[2017-07-27 18:46] VITALS: BP 124/81
--- NOTE | 2017-07-27 19:36 | EDM.PDOC ---
ED HPI GENERAL MEDICAL PROBLEM - General Chief Complaint: ENT Problem Stated Complaint: SORE THROAT, BODY ACHES Time Seen by Provider: 07/27/17 18:42 Source of Information: Reports: Patient History Limitations: Reports: No Limitations - History of Present Illness INITIAL COMMENTS - FREE TEXT/NARRATIVE: influenza-like syndrome this is a 37-year-old female presents emergency room with concerns of flulike symptoms for the past 2 days. 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 She reports her boyfriend has been sick with similar symptoms since last week. She reports body aches runny nose slight cough vomited once yesterday and none today she is tolerating clear liquids. 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 - Related Data Allergies Allergy/AdvReac Type Severity Reaction Status Date / Time varenicline tartrate AdvReac Other Verified 03/06/17 08:43 [From Chantix] Home Meds: Home Meds Sertraline [Zoloft] 100 mg PO DAILY 07/27/17 [History] Past Medical History HEENT History: Reports: Impaired Vision Respiratory History: Reports: Other (See Below) Other Respiratory History: Alpha-1 antitrypsin deficiency Gastrointestinal History: Reports: Cholelithiasis Genitourinary History: Reports: None 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: Musculoskeletal History: Reports: Back Pain, Chronic, Other (See Below) Other Musculoskeletal History: chronic knee pain Neurological History: Reports: Concussion, Migraines Psychiatric History: Reports: Anxiety - Infectious Disease History Infectious Disease History: Reports: Chicken Pox - Past Surgical History GI Surgical History: Reports: Cholecystectomy, Hernia Repair/Other Female Surgical History: Reports: Section, Tubal Ligation Musculoskeletal Surgical History: Reports: Arthroscopic Knee, Arthroscopic Procedure, Ganglion Cyst Social & Family History - Family History Family Medical History: Unobtainable - Tobacco Use Smoking Status *Q: Heavy Tobacco Smoker Years of Tobacco use: 20 Packs/Tins Daily: 1 Used Tobacco, but Quit: No Month Tobacco Last Used: November Second Hand Smoke Exposure: Yes - Caffeine Use Caffeine Use: Reports: None - Alcohol Use Days Per Week of Alcohol Use: 0 - Recreational Drug Use Recreational Drug Use: No - Living Situation & Occupation Living situation: Reports: with Significant Other, with Family Occupation: Employed (Lives with boyfriend and 2 children age 5 and 13 years old. Employed by [employer] home.) ED ROS ENT - Review of Systems Review Of Systems: Unable To Obtain Constitutional: Reports: Fever, Chills, Malaise, Decreased Appetite HEENT: Reports: Rhinitis, Throat Pain Respiratory: Reports: Cough Cardiovascular: Reports: No Symptoms Endocrine: Reports: No Symptoms GI/Abdominal: Reports: Nausea, Vomiting : Reports: No Symptoms Musculoskeletal: Reports: Muscle Pain, Muscle Stiffness Skin: Reports: No Symptoms Neurological: Reports: No Symptoms Psychiatric: Reports: No Symptoms Hematologic/Lymphatic: Reports: No Symptoms Immunologic: Reports: No Symptoms ED EXAM, ENT - Physical Exam Exam: See Below Exam Limited By: No Limitations General Appearance: Alert, WD/WN, No Apparent Distress, Thin Eye Exam: Bilateral Eye: Normal Inspection, PERRL Ears: Normal External Exam, Normal Canal, Hearing Grossly Normal, Normal TMs Nose: Normal Inspection, Normal Mucousa, No Blood Mouth/Throat: Normal Inspection, Normal Gums, Normal Lips, Normal Oropharynx, Normal Teeth Head: Atraumatic, Normocephalic Neck: Normal Inspection, Supple, Non-Tender, Full Range of Motion Respiratory/Chest: No Respiratory Distress, Lungs Clear, Normal Breath Sounds, No Accessory Muscle Use, Chest Non-Tender Cardiovascular: Normal Peripheral Pulses, Regular Rate, Rhythm, No Edema, No Murmur GI/Abdominal: Normal Bowel Sounds, Soft, Non-Tender, No Distention (Female) Exam: Deferred Rectal (Female) Exam: Deferred Back: Normal Inspection, Full Range of Motion Extremities: Normal Inspection, Normal Range of Motion, Non-Tender, No Pedal Edema, Normal Capillary Refill Neurological: Alert, Oriented, CN II-XII Intact, Normal Cognition, Normal Gait, Normal Reflexes, No Motor/Sensory Deficits Psychiatric: Normal Affect, Normal Mood Skin: Warm, Dry, Intact, Normal Color, No Rash Lymphatic: Adenopathy (Cervical bilateral.) Course - Vital Signs Last Recorded V/S: Last Vital Signs Temp 36.2 C 07/27/17 18:51 Pulse 78 07/27/17 18:51 Resp 16 07/27/17 18:51 BP 124/81 07/27/17 18:51 Pulse Ox 99 07/27/17 18:51 - Orders/Labs/Meds Orders: Active Orders 24 hr Category Date Time Status CULTURE STREP A CONFIRMATION [RM] Stat Lab 07/27/17 18:49 Results STREP SCRN A RAPID W CULT CONF [RM] Stat Lab 07/27/17 18:49 Results - Re-Assessments/Exams Free Text/Narrative Re-Assessment/Exam: 07/27/17 19:54 Influenza A positive the negative rapid strep negative declines IV fluids We'll plan to discharge her home with Tamiflu and Zofran and 6 slip for no work 7 days patient agrees with plan of care Departure - Departure Time of Disposition: 19:55 Disposition: Home, Self-Care 01 Condition: Good Clinical Impression: Influenza A - Discharge Information Instructions: Influenza, Adult, [id number] Referrals: PCP,None [Primary Care Provider] - Forms: ED Department Discharge Care Plan Goals: Influenza A -Tamiflu 75 mg by mouth twice a day 5 days -Zofran 4 mg by mouth every 8 hours as needed for nausea and vomiting Advised to push fluids, rest, take medication as prescribed - infection control discussed, advised to stay at home until symptoms have resolved No work until fever and symptom free 24 hours work excuse given for 7 days Return to clinic or ER if has increased pain, fever, chills, nausea, vomiting, diarrhea, rash, or worsening symptoms.- - Problem List & Annotations (1) Influenza A SNOMED Code(s): 079508704 Code(s): J10.1 - FLU DUE TO OTH IDENT INFLUENZA VIRUS W OTH RESP MANIFEST Status: Acute Priority: High Current Visit: Yes - Problem List Review Problem List Initiated/Reviewed/Updated: Yes - My Orders Last 24 Hours: My Active Orders 07/27/17 18:49 CULTURE STREP A CONFIRMATION [RM] Stat STREP SCRN A RAPID W CULT CONF [RM] Stat - Assessment/Plan Last 24 Hours: My Active Orders 07/27/17 18:49 CULTURE STREP A CONFIRMATION [RM] Stat STREP SCRN A RAPID W CULT CONF [RM] Stat Plan: Influenza A -Tamiflu 75 mg by mouth twice a day 5 days -Zofran 4 mg by mouth every 8 hours as needed for nausea and vomiting Advised to push fluids, rest, take medication as prescribed - infection control discussed, advised to stay at home until symptoms have resolved No work until fever and symptom free 24 hours work excuse given for 7 days Return to clinic or ER if has increased pain, fever, chills, nausea, vomiting, diarrhea, rash, or worsening symptoms.-
== END 2017-07-27 19:53 | disposition home or self-care (01) ==
LOC: JP.ED 17:31
DX: J10.1 Influenza due to other identified influenza virus with other respiratory manifestations (principal); Z88.8 Allergy status to other drugs, medicaments and biological substances; Z72.0 Tobacco use
CPT/HCPCS: 87081; 87430; 87804; 99283

== ENCOUNTER 2017-09-02 10:16 | Emergency (ER) | payer MEDICAID ==
[2017-09-02 10:27] VITALS: BP 127/92
[2017-09-02] MEDS ORDERED: Alum Hydrox/Mag Hydrox/Simeth 15 ML, Lidocaine 2% 15 ML PO ONE ×2 (10:37)
--- NOTE | 2017-09-02 10:51 | EDM.PDOC ---
ED HPI GENERAL MEDICAL PROBLEM - General Chief Complaint: Abdominal Pain Stated Complaint: ABDOMINAL PAIN Time Seen by Provider: 09/02/17 10:35 Source of Information: Reports: Patient, Old Records, RN History Limitations: Reports: No Limitations - History of Present Illness INITIAL COMMENTS - FREE TEXT/NARRATIVE: 37 yo female presents with about 26 hrs of epigastric pain. Has a pHx of gastritis and is not on any gastro-protective agents. Has no primary care providers, but called the clinic today and there were no openings so she came to the ER. She has not had vomiting, fever, diarrhea, melena or hematochezia. Has multiple risk factors for gastritis with smoking, use of aspirin regularly for migraines with taking with food, and soda pop consumption regularly. Was seen for a similar problem by Dr. Miguel in 01/31 that was deemed to be gastritis and she was placed on a PPI, is not taking this now. Took ibuprofen for the pain without relief. Onset Date: 09/01/17 Duration: Day(s): (1), Getting Worse Location: Reports: Abdomen (epigastrium) Quality: Reports: Burning Severity: Moderate Improves with: Reports: Other (bringing knees to chest) Worsens with: Reports: Other (not aware) Context: Reports: Other (hx of gastritis with multiple risk factors for this.) Associated Symptoms: Reports: Nausea/Vomiting (mild nausea, no vomiting.). 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 Middle Abdominal Pain Score (Numeric/FACES): 8 - Related Data Allergies Allergy/AdvReac Type Severity Reaction Status Date / Time varenicline tartrate AdvReac Other Verified 03/06/17 08:43 [From Chantix] Home Meds: Home Meds Sertraline [Zoloft] 100 mg PO DAILY 07/27/17 [History] Past Medical History HEENT History: Reports: Impaired Vision Respiratory History: Reports: Other (See Below) Other Respiratory History: Alpha-1 antitrypsin deficiency Gastrointestinal History: Reports: Cholelithiasis Genitourinary History: Reports: None 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: Musculoskeletal History: Reports: Back Pain, Chronic, Other (See Below) Other Musculoskeletal History: chronic knee pain Neurological History: Reports: Concussion, Migraines Psychiatric History: Reports: Anxiety - Infectious Disease History Infectious Disease History: Reports: Chicken Pox - Past Surgical History GI Surgical History: Reports: Cholecystectomy, Hernia Repair/Other Female Surgical History: Reports: Section, Tubal Ligation Musculoskeletal Surgical History: Reports: Arthroscopic Knee, Arthroscopic Procedure, Ganglion Cyst Social & Family History - Family History Family Medical History: Unobtainable - Tobacco Use Smoking Status *Q: Heavy Tobacco Smoker Years of Tobacco use: 15 Packs/Tins Daily: 1 Used Tobacco, but Quit: No Month/Year Tobacco Last Used: November Second Hand Smoke Exposure: Yes - Caffeine Use Caffeine Use: Reports: Soda - Alcohol Use Days Per Week of Alcohol Use: 0 - Recreational Drug Use Recreational Drug Use: No - Living Situation & Occupation Living situation: Reports: with Significant Other, with Family Occupation: Employed (Lives with boyfriend and 2 children age 5 and 13 years old. Employed by [employer].) ED ROS GENERAL - Review of Systems Review Of Systems: See Below Constitutional: Reports: No Symptoms HEENT: Reports: No Symptoms Respiratory: Reports: No Symptoms Cardiovascular: Reports: No Symptoms GI/Abdominal: Reports: Abdominal Pain (epigastric), Nausea. Denies: Black Stool , Bloody Stool, Constipation, Diarrhea, Hematemesis, Hematochezia, Melena, Vomiting : Reports: No Symptoms Musculoskeletal: Reports: No Symptoms Skin: Reports: No Symptoms Neurological: Reports: No Symptoms ED EXAM, GI/ABD - Physical Exam Exam: See Below Exam Limited By: No Limitations General Appearance: Alert, WD/WN, No Apparent Distress Eyes: Bilateral: Normal Appearance Ears: Normal External Exam, Normal Canal, Hearing Grossly Normal, Normal TMs Nose: Normal Inspection, Normal Mucosa, No Blood Throat/Mouth: Normal Inspection, Normal Lips, Normal Oropharynx, Normal Voice, No Airway Compromise Head: Atraumatic, Normocephalic Neck: Normal Inspection, Supple, Non-Tender Respiratory/Chest: No Respiratory Distress, Lungs Clear, Normal Breath Sounds, No Accessory Muscle Use Cardiovascular: Regular Rate, Rhythm, No Edema GI/Abdominal Exam: Normal Bowel Sounds, Soft, No Distention, Tender (epigastrium ). No: Distended, Abnormal Bowel Sounds, Hernia Back Exam: Normal Inspection. No: CVA Tenderness (R), CVA Tenderness (L) Extremities: Normal Inspection, Normal Range of Motion, Non-Tender, No Pedal Edema Neurological: Alert, Oriented, CN II-XII Intact, Normal Cognition, No Motor/ Sensory Deficits Psychiatric: Normal Affect, Normal Mood Skin Exam: Warm, Dry, Intact, Normal Color, No Rash Lymphatic: No Adenopathy Course - Vital Signs Text/Narrative:: GI cocktail po- Last Recorded V/S: Last Vital Signs Temp 35.4 C 09/02/17 10:31 Pulse 56 L 09/02/17 10:31 Resp 18 09/02/17 10:31 BP 127/92 H 09/02/17 10:31 Pulse Ox 97 09/02/17 10:31 - Orders/Labs/Meds Orders: Active Orders 24 hr Category Date Time Status Pantoprazole [ProTONIX] Med 09/02/17 11:00 Active 40 mg PO DAILY Medication Orders Pantoprazole Sodium (Protonix) 40 mg PO DAILY CHANI Last Admin: 09/02/17 11:05 Dose: 40 mg Labs: Laboratory Tests 09/02/17 Range/Units 10:54 Total Bilirubin 0.1 L D (0.2-1.0) mg/dL Direct Bilirubin 0.04 (0.0-0.2) mg/dL Indirect Bilirubin TNP AST 17 (15-37) U/L ALT 18 (12-78) U/L Alkaline Phosphatase 66 (46-116) U/L Total Protein 6.4 (6.4-8.2) g/dL Albumin 3.6 (3.4-5.0) g/dL Globulin 2.8 (2.3-3.5) g/dL Albumin/Globulin Ratio 1.3 (1.2-2.2) Lipase 117 (73-393) U/L Meds: Medications Generic Name Dose Route Start Last Admin Trade Name Freq PRN Reason Stop Dose Admin Pantoprazole Sodium 40 mg 09/02/17 11:00 09/02/17 11:05 Protonix PO 40 mg DAILY CHANI Administration Discontinued Medications Generic Name Dose Route Start Last Admin Trade Name Freq PRN Reason Stop Dose Admin Acetaminophen 1,000 mg 09/02/17 11:00 09/02/17 11:05 Tylenol Extra Strength PO 09/02/17 11:01 1,000 mg ONETIME ONE Administration Al Hydroxide/Mg Hydroxide 15 0 ml 09/02/17 10:37 09/02/17 10:47 ml/ Lidocaine HCl 15 ml PO 09/02/17 10:38 15 ml ONETIME ONE Administration Departure - Departure Time of Disposition: 11:30 Disposition: Home, Self-Care 01 Condition: Fair Clinical Impression: Gastritis Qualifiers: Gastritis type: unspecified gastritis Chronicity: acute Gastritis bleeding: without bleeding Qualified Code(s): K29.00 - Acute gastritis without bleeding - Discharge Information Referrals: PCP,None [Primary Care Provider] - Forms: ED Department Discharge - My Orders Last 24 Hours: My Active Orders 09/02/17 11:00 Pantoprazole [ProTONIX] 40 mg PO DAILY - Assessment/Plan Last 24 Hours: My Active Orders 09/02/17 11:00 Pantoprazole [ProTONIX] 40 mg PO DAILY
[2017-09-02] MEDS ORDERED: Pantoprazole 40 MG Tab.CR PO SCH (11:00)
[2017-09-02] MEDS ORDERED: Acetaminophen 500 MG Tab PO ONE (11:00)
== END 2017-09-02 11:38 | disposition home or self-care (01) ==
LOC: JP.ED 10:16
DX: K29.00 Acute gastritis without bleeding (principal); F41.9 Anxiety disorder, unspecified; F17.210 Nicotine dependence, cigarettes, uncomplicated; Z79.899 Other long term (current) drug therapy
CPT/HCPCS: 36415; 80076; 83690; 99284; A9270

== ENCOUNTER 2019-08-30 07:30 | Emergency (ER) | payer MEDICAID ==
[2019-08-30 07:49] VITALS: BP 137/91; PULSE 75
--- NOTE | 2019-08-30 08:11 | EDM.PDOC ---
ED HPI GENERAL MEDICAL PROBLEM - General Chief Complaint: Upper Extremity Injury/Pain Stated Complaint: LEFT SIDE PAIN POST FALL Time Seen by Provider: 08/30/19 08:02 Source of Information: Reports: Patient History Limitations: Reports: No Limitations - History of Present Illness INITIAL COMMENTS - FREE TEXT/NARRATIVE: Patient presents for evaluation of pain in the left elbow, shoulder, buttock region after slipping on a patch of ice at work yesterday, Saturday, 28 August. She had gone outside for a cigarette break and noticed a knife of some kind on the ground near her. She had contacted law enforcement and while she was moving in the area waiting for police to arrive, slipped on some ice landing first on the left buttock region followed by the shoulder followed by her elbow. There was some mild discomfort at the time but after she awoke this morning everything was more uncomfortable than at the time of injury yesterday. She doesn't think she broke anything but wanted to make sure as she has to work again on Saturday, 31 August. She has no other recognized injuries at this time. No other recent changes in health otherwise. Onset: Sudden Onset Date: 08/29/19 Location: Reports: Back, Upper Extremity, Left Quality: Reports: Dull Severity: Mild Improves with: Reports: None Worsens with: Reports: Movement Context: Reports: Trauma left side of her body Pain Score (Numeric/FACES): 6 - Related Data Allergies Allergy/AdvReac Type Severity Reaction Status Date / Time varenicline tartrate AdvReac Other Verified 08/30/19 07:50 [From Chantix] Home Meds: Home Meds Sertraline [Zoloft] 100 mg PO DAILY 07/27/17 [History] LORazepam 1 tab PO ASDIRECTED PRN 05/08/18 [History] Past Medical History HEENT History: Reports: Impaired Vision Respiratory History: Reports: Other (See Below) Other Respiratory History: Alpha-1 antitrypsin deficiency Gastrointestinal History: Reports: Cholelithiasis Genitourinary History: Reports: None 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: Musculoskeletal History: Reports: Back Pain, Chronic, Other (See Below) Other Musculoskeletal History: chronic knee pain Neurological History: Reports: Concussion, Migraines Psychiatric History: Reports: Anxiety - Infectious Disease History Infectious Disease History: Reports: Chicken Pox - Past Surgical History GI Surgical History: Reports: Cholecystectomy, Hernia Repair/Other Female Surgical History: Reports: Section, Tubal Ligation Musculoskeletal Surgical History: Reports: Arthroscopic Knee, Arthroscopic Procedure, Ganglion Cyst Social & Family History - Family History Family Medical History: Unobtainable - Tobacco Use Smoking Status *Q: Current Every Day Smoker Years of Tobacco use: 15 Packs/Tins Daily: 1 - Caffeine Use Caffeine Use: Reports: Soda - Recreational Drug Use Recreational Drug Use: No - Living Situation & Occupation Living situation: Reports: with Significant Other, with Family Occupation: Employed (Lives with boyfriend and 2 children age 5 and 13 years old. Employed by [employer].) Review of Systems - Review of Systems Review Of Systems: Comprehensive ROS is negative, except as noted in HPI. ED EXAM, GENERAL - Physical Exam Exam: See Below Free Text/Narrative:: Patient is seated cross-legged on the bed in room 5 using her phone. She is able to move the left upper extremity without limitation. Exam Limited By: No Limitations General Appearance: Alert, Mild Distress Back Exam: Paraspinal Tenderness (There is pain on palpation in the vicinity of the left PSIS but no distinct bony tenderness, only soft tissue discomfort.) Extremities: Normal Range of Motion, Other (There is mild pain on palpation along the medial aspect of the left elbow. The patient has complete flexion and extension capability at the elbow. Pronation and supination do not cause pain. No bruising. The left shoulder region shows complete range of motion without crepitus. With a reaching maneuver toward the right shoulder there is pain across the supraspinatus and scapular regions.) Course - Vital Signs Last Recorded V/S: Last Vital Signs Temp 36.3 C 08/30/19 07:45 Pulse 75 08/30/19 07:45 Resp 16 08/30/19 07:45 BP 137/91 H 08/30/19 07:45 Pulse Ox 99 08/30/19 07:45 - Re-Assessments/Exams Free Text/Narrative Re-Assessment/Exam: 08/30/19 08:21 History and exam are most consistent with contusions to the left elbow, shoulder , buttock and low back region. Recommend cold packs 20 minutes off and on to painful areas along with ibuprofen 800 mg 3 times daily over the next 5 days or so. Avoid painful movements but try to maintain flexibility at the affected areas. Symptoms should gradually improve over the next several days. Return to ER if feeling worse in anyway. Departure - Departure Time of Disposition: 08:12 Disposition: Home, Self-Care 01 Condition: Good Clinical Impression: Contusion of elbow, left Qualifiers: Encounter type: initial encounter Qualified Code(s): S50.02XA - Contusion of left elbow, initial encounter Contusion of shoulder, left Qualifiers: Encounter type: initial encounter Qualified Code(s): S40.012A - Contusion of left shoulder, initial encounter Contusion of buttock Qualifiers: Encounter type: initial encounter Qualified Code(s): S30.0XXA - Contusion of lower back and pelvis, initial encounter - Discharge Information *PRESCRIPTION DRUG MONITORING PROGRAM REVIEWED*: Not Applicable *COPY OF PRESCRIPTION DRUG MONITORING REPORT IN PATIENT MEET: Not Applicable Instructions: Contusion, [id number] Referrals: PCP,None [Primary Care Provider] - Forms: ED Department Discharge Additional Instructions: Cold packs to painful areas 20 minutes off and on. Ibuprofen 800 mg 3 times a day over the next 5 days. Maintain range of motion and flexibility at injured areas. Avoid painful movements to the extent possible. Symptoms should gradually improve this week. Return to ER if feeling worse in anyway. Sepsis Event Note - Evaluation Sepsis Screening Result: No Definite Risk - Focused Exam Vital Signs: Vital Signs Temp Pulse Resp BP Pulse Ox 08/30/19 07:45 36.3 C 75 16 137/91 H 99 Date Exam was Performed: 08/30/19 Time Exam was Performed: 08:15
== END 2019-08-30 08:31 | disposition home or self-care (01) ==
LOC: JP.ED 07:30
DX: S50.02XA Contusion of left elbow, initial encounter (principal); S40.012A Contusion of left shoulder, initial encounter; S30.0XXA Contusion of lower back and pelvis, initial encounter; F41.9 Anxiety disorder, unspecified; F17.210 Nicotine dependence, cigarettes, uncomplicated; Z79.899 Other long term (current) drug therapy; Z88.8 Allergy status to other drugs, medicaments and biological substances; W00.0XXA Fall on same level due to ice and snow, initial encounter; Y99.0 Civilian activity done for income or pay
CPT/HCPCS: 99283

== ENCOUNTER 2019-10-16 17:46 | Emergency (ER) | payer MEDICAID ==
[2019-10-16 17:58] VITALS: BP 143/93; PULSE 76
--- NOTE | 2019-10-16 18:13 | EDM.PDOC ---
ED HPI GENERAL MEDICAL PROBLEM - General Chief Complaint: Upper Extremity Injury/Pain Time Seen by Provider: 10/16/19 18:05 Source of Information: Reports: Patient History Limitations: Reports: No Limitations - History of Present Illness INITIAL COMMENTS - FREE TEXT/NARRATIVE: 39-year-old female who has had right hand pain, over the dorsal aspect of the hand near the MP joint for the past 2 weeks. No specific injury, no considerable swelling or bruising. Tonight she was stirring some food and it was hurting so much that she decided she needed to get it checked. No other joint complaints. No fevers or chills. Onset: Gradual Duration: Week(s): (2 weeks) Location: Reports: Upper Extremity, Right Associated Symptoms: Reports: No Other Symptoms Right Middle Finger-Middle Pain Score (Numeric/FACES): 6 - Related Data Allergies Allergy/AdvReac Type Severity Reaction Status Date / Time varenicline tartrate AdvReac Other Verified 10/16/19 17:57 [From Chantix] Home Meds: Home Meds Sertraline [Zoloft] 100 mg PO DAILY 07/27/17 [History] LORazepam 1 tab PO ASDIRECTED PRN 05/08/18 [History] Aspirin/Caffeine [Bc Powder Packet] 1 pack PO ASDIRECTED 10/16/19 [History] Past Medical History HEENT History: Reports: Impaired Vision Respiratory History: Reports: Other (See Below) Other Respiratory History: Alpha-1 antitrypsin deficiency Gastrointestinal History: Reports: Cholelithiasis Genitourinary History: Reports: None 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: Musculoskeletal History: Reports: Back Pain, Chronic, Other (See Below) Other Musculoskeletal History: chronic knee pain Neurological History: Reports: Concussion, Migraines Psychiatric History: Reports: Anxiety, Panic Attack Immunologic History: Reports: Other (See Below) - Infectious Disease History Infectious Disease History: Reports: Chicken Pox - Past Surgical History Head Surgeries/Procedures: Reports: None HEENT Surgical History: Reports: None Respiratory Surgical History: Reports: None GI Surgical History: Reports: Cholecystectomy, Hernia Repair/Other Female Surgical History: Reports: Section, Tubal Ligation Neurological Surgical History: Reports: None Musculoskeletal Surgical History: Reports: Arthroscopic Knee, Arthroscopic Procedure, Ganglion Cyst Dermatological Surgical History: Reports: None Social & Family History - Family History Family Medical History: Unobtainable - Tobacco Use Smoking Status *Q: Current Every Day Smoker Years of Tobacco use: 17 Packs/Tins Daily: 1 Used Tobacco, but Quit: No - Caffeine Use Caffeine Use: Reports: Soda - Recreational Drug Use Recreational Drug Use: No - Living Situation & Occupation Living situation: Reports: with Significant Other, with Family Occupation: Employed (Lives with boyfriend and 2 children age 5 and 13 years old. Employed by [employer].) Review of Systems - Review of Systems Review Of Systems: See Below Constitutional: Denies: Fever Mouth/Throat: Reports: No Symptoms Respiratory: Reports: No Symptoms Cardiovascular: Reports: No Symptoms Skin: Reports: No Symptoms Neurological: Reports: No Symptoms. Denies: Paresthesia Psychiatric: Reports: No Symptoms ED EXAM, GENERAL - Physical Exam Exam: See Below Exam Limited By: No Limitations General Appearance: Alert, No Apparent Distress Respiratory/Chest: No Respiratory Distress Extremities: Other (Exam is otherwise limited to the right hand. She has tenderness to palpation just to the ulnar aspect of the MP joint of the middle finger, but no bruising, swelling, asymmetry or deformity. She has pain with extension of the finger against resistance.) Neurological: Alert, Oriented Psychiatric: Normal Affect, Normal Mood Skin Exam: Warm, Dry Course - Vital Signs Last Recorded V/S: Last Vital Signs Temp 97.2 F 10/16/19 17:59 Pulse 76 10/16/19 17:59 Resp 16 10/16/19 17:59 BP 143/93 H 10/16/19 17:59 Pulse Ox 97 10/16/19 17:59 - Orders/Labs/Meds Orders: Active Orders 24 hr Category Date Time Status Hand Comp Min 3V Rt [CR] Stat Exams 10/16/19 18:08 Taken - Re-Assessments/Exams Free Text/Narrative Re-Assessment/Exam: 10/16/19 18:27 An x-ray of the right hand was obtained. 10/16/19 18:44 X-ray is negative. Patient's hand was placed in an Ortho-Glass splint, 8 inches long, to rest the extensor tendon and the MP joint. She is going to wear through the weekend and then increase activity as tolerated, rechecking with orthopedics if not improving satisfactorily in 1 week. Departure - Departure Time of Disposition: 18:43 Disposition: Home, Self-Care 01 Clinical Impression: Tendinitis of right hand - Discharge Information Instructions: Tendinitis, [id number] Referrals: PCP,None [Primary Care Provider] - Forms: ED Department Discharge Care Plan Goals: A regular dose of ibuprofen or naproxen would be helpful, and wear splint through the weekend to rest her hand. Increase activity as tolerated and consider rechecking in 1 week with orthopedics if not improving satisfactorily. Sepsis Event Note - Evaluation Sepsis Screening Result: No Definite Risk - Focused Exam Vital Signs: Vital Signs Temp Pulse Resp BP Pulse Ox 10/16/19 17:59 97.2 F 76 16 143/93 H 97 10/16/19 17:56 97.2 F 76 16 143/93 H 97 Date Exam was Performed: 10/16/19 Time Exam was Performed: 18:58 - My Orders Last 24 Hours: My Active Orders 10/16/19 18:08 Hand Comp Min 3V Rt [CR] Stat - Assessment/Plan Last 24 Hours: My Active Orders 10/16/19 18:08 Hand Comp Min 3V Rt [CR] Stat
--- NOTE | 2019-10-19 10:13 | CR ---
Hand Comp Min 3V Rt CLINICAL HISTORY: Pain over middle MCP joint FINDINGS: There is no acute fracture or dislocation of the hand. Impression: Negative
== END 2019-10-16 18:46 | disposition home or self-care (01) ==
LOC: JP.ED 17:46
DX: M77.9 Enthesopathy, unspecified (principal); F41.9 Anxiety disorder, unspecified; F17.210 Nicotine dependence, cigarettes, uncomplicated; Z88.8 Allergy status to other drugs, medicaments and biological substances; Z79.899 Other long term (current) drug therapy; Z79.82 Long term (current) use of aspirin
CPT/HCPCS: 29125; 73130-26-RT; 73130-RT; 99283-25

== ENCOUNTER 2020-02-11 22:04 | Emergency (ER) | payer MEDICAID ==
[2020-02-11 22:24] VITALS: BP 129/52; PULSE 77
[2020-02-11] MEDS ORDERED: Ketorolac 30 MG/ML SDV IM ONE (22:47)
[2020-02-11] MEDS ORDERED: Diphtheria,Pertussis(Acell),Tetanus Vaccine 0.5 ML SDV IM ONE (22:56)
--- NOTE | 2020-02-11 22:58 | EDM.PDOC ---
ED HPI GENERAL MEDICAL PROBLEM - General Chief Complaint: Syncope Stated Complaint: SEIZURE,HIT FACE Time Seen by Provider: 02/11/20 22:40 Source of Information: Reports: Patient, Old Records, RN History Limitations: Reports: No Limitations - History of Present Illness INITIAL COMMENTS - FREE TEXT/NARRATIVE: 40 yo female was out on her deck tonight and got up from sitting and felt light- headed. She reached for a railing and fell forward hitting her face on the deck. Her friend that was with her says she convulsed for around a minute and then woke up and was quickly fully oriented. There was no tongue biting or incontinence of urine. Something similar happened once in the past. No dx of epilepsy. Has a mild ROSALES now. Thinks she is UTD on her tetanus. No nausea or neck pain. Says she drinks nothing but Mtn Dew for about 15 yrs. 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: Other (see below) (none) Headache Pain Score (Numeric/FACES): 6 - Related Data Allergies Allergy/AdvReac Type Severity Reaction Status Date / Time varenicline tartrate AdvReac Other Verified 02/11/20 22:32 [From Chantix] Home Meds: Home Meds Sertraline [Zoloft] 100 mg PO DAILY 07/27/17 [History] Aspirin/Caffeine [Bc Powder Packet] 1 pack PO ASDIRECTED PRN 10/16/19 [History] Past Medical History HEENT History: Reports: Impaired Vision Respiratory History: Reports: Other (See Below) Other Respiratory History: Alpha-1 antitrypsin deficiency Gastrointestinal History: Reports: Cholelithiasis Genitourinary History: Reports: None 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: Musculoskeletal History: Reports: Back Pain, Chronic, Other (See Below) Other Musculoskeletal History: chronic knee pain Neurological History: Reports: Concussion, Migraines Psychiatric History: Reports: Anxiety, Depression, Panic Attack Immunologic History: Reports: Other (See Below) - Infectious Disease History Infectious Disease History: Reports: Chicken Pox - Past Surgical History GI Surgical History: Reports: Cholecystectomy, Hernia Repair/Other Female Surgical History: Reports: Section, Tubal Ligation Musculoskeletal Surgical History: Reports: Arthroscopic Knee, Arthroscopic Procedure, Ganglion Cyst Social & Family History - Family History Family Medical History: Unobtainable - Tobacco Use Smoking Status *Q: Current Every Day Smoker Years of Tobacco use: 15 Packs/Tins Daily: 1 - Caffeine Use Caffeine Use: Reports: Soda - Recreational Drug Use Recreational Drug Use: No - Living Situation & Occupation Living situation: Reports: with Significant Other, with Family Occupation: Employed (Lives with boyfriend and 2 children age 5 and 13 years old. Employed by [employer].) ED ROS GENERAL - Review of Systems Review Of Systems: See Below Constitutional: Reports: No Symptoms HEENT: Reports: No Symptoms Respiratory: Reports: No Symptoms Cardiovascular: Reports: No Symptoms GI/Abdominal: Reports: No Symptoms. Denies: Nausea Musculoskeletal: Reports: No Symptoms Skin: Reports: Wound (abrasions of her hands and R anterior knee and upper lip. ) Neurological: Reports: Headache (mild). Denies: Confusion, Dizziness, Numbness, Difficulty Walking, Weakness, Change in Speech Psychiatric: Reports: No Symptoms - Physical Exam Exam: See Below Exam Limited By: No Limitations General Appearance: Alert, WD/WN, No Apparent Distress Eye Exam: Bilateral Eye: EOMI, Normal Inspection, PERRL Ears: Normal External Exam, Normal Canal, Hearing Grossly Normal, Normal TMs Nose: Normal Inspection, No Blood Throat/Mouth: Normal Inspection, Normal Oropharynx, Normal Voice, No Airway Compromise. No: Normal Lips (upper lip slightly swollen. ), Normal Teeth (upper incisors are very decayed. Hard to tell if anything is newly broken. ) Head Exam: Atraumatic, Normocephalic. No: Scalp Swelling, Scalp Tenderness Neck: Normal Inspection, Supple, Non-Tender Respiratory/Chest: No Respiratory Distress, Lungs Clear, Normal Breath Sounds, No Accessory Muscle Use Cardiovascular: Regular Rate, Rhythm, No Edema Neuro Exam (Abbreviated): Alert, Oriented, CN II-XII Intact, Normal Cognition, No Motor/Sensory Deficits Back Exam: Normal Inspection. No: CVA Tenderness (R), CVA Tenderness (L) Extremities: Normal Inspection, Normal Range of Motion, Non-Tender, No Pedal Edema Psychiatric: Normal Affect, Normal Mood Skin Exam: Warm, Dry, Normal Color, No Rash, Wound/Incision (superficial abrasions of face, hands, R knee) Course - Vital Signs Last Recorded V/S: Last Vital Signs Temp 36.2 C 02/11/20 22:33 Pulse 77 02/11/20 22:33 Resp 16 02/11/20 22:33 BP 129/52 L 02/11/20 22:33 Pulse Ox 99 02/11/20 22:33 Orthostatic Blood Pressure [ 143/89 Standing] Orthostatic Blood Pressure [ 137/93 Sitting] Orthostatic Blood Pressure [ 135/75 Supine] - Orders/Labs/Meds Orders: Active Orders 24 hr Category Date Time Status Orthostatic Vital Signs [RC] ASDIRECTED Care 02/11/20 22:47 Active Vaccines to be Administered [RC] PER UNIT ROUTINE Care 02/11/20 22:56 Active Meds: Medications Discontinued Medications Generic Name Dose Route Start Last Admin Trade Name Freq PRN Reason Stop Dose Admin Diphtheria/Tetanus/Acell Pertussis 0.5 ml 02/11/20 22:56 02/11/20 23:07 Adacel IM 02/11/20 22:57 0.5 ml .ONCE ONE Administration Ketorolac Tromethamine 30 mg 02/11/20 22:47 02/11/20 22:56 Toradol IM 02/11/20 22:48 30 mg ONETIME ONE Administration Departure - Departure Time of Disposition: 23:20 Disposition: Home, Self-Care 01 Condition: Fair Clinical Impression: Multiple abrasions Dental injury Qualifiers: Encounter type: initial encounter Qualified Code(s): S09.93XA - Unspecified injury of face, initial encounter - Discharge Information *PRESCRIPTION DRUG MONITORING PROGRAM REVIEWED*: No *COPY OF PRESCRIPTION DRUG MONITORING REPORT IN PATIENT MEET: No Referrals: PCP,None [Primary Care Provider] - Forms: ED Department Discharge Additional Instructions: If you feel light-headed sit down immediately if possible. See your dentist tomorrow to further assess for any serious dental injuries. Take acetaminophen for pain relief. Clean your wounds in the shower with soap and water. Recheck as needed. Sepsis Event Note (ED) - Evaluation Sepsis Screening Result: No Definite Risk - Focused Exam Vital Signs: Vital Signs Temp Pulse Resp BP Pulse Ox 02/11/20 22:33 36.2 C 77 16 129/52 L 99 02/11/20 22:23 36.2 C 77 16 129/52 L 99 - My Orders Last 24 Hours: My Active Orders 02/11/20 22:47 Orthostatic Vital Signs [RC] ASDIRECTED 02/11/20 22:56 Vaccines to be Administered [RC] PER UNIT ROUTINE - Assessment/Plan Last 24 Hours: My Active Orders 02/11/20 22:47 Orthostatic Vital Signs [RC] ASDIRECTED 02/11/20 22:56 Vaccines to be Administered [RC] PER UNIT ROUTINE
== END 2020-02-11 23:28 | disposition home or self-care (01) ==
LOC: JP.ED 22:04
DX: S80.211A Abrasion, right knee, initial encounter (principal); S00.81XA Abrasion of other part of head, initial encounter; S60.519A Abrasion of unspecified hand, initial encounter; S00.511A Abrasion of lip, initial encounter; F41.9 Anxiety disorder, unspecified; F32.9 Major depressive disorder, single episode, unspecified; F17.210 Nicotine dependence, cigarettes, uncomplicated; K02.9 Dental caries, unspecified; Z79.899 Other long term (current) drug therapy; Z88.8 Allergy status to other drugs, medicaments and biological substances; Z23 Encounter for immunization; X58.XXXA Exposure to other specified factors, initial encounter
CPT/HCPCS: 90471; 90715; 96372; 99283; J1885

== ENCOUNTER 2020-12-27 12:37 | Emergency (ER) | payer MEDICAID ==
[2020-12-27] MEDS ORDERED: Lisinopril 10 MG Tab PO ONE (14:02)
--- NOTE | 2020-12-27 14:02 | EDM.PDOC ---
ED HPI GENERAL MEDICAL PROBLEM - General Chief Complaint: Cardiovascular Problem Stated Complaint: HIGH BLOOD PRESSURE Time Seen by Provider: 12/27/20 13:48 Source of Information: Reports: Patient, Family, RN Notes Reviewed History Limitations: Reports: No Limitations - History of Present Illness INITIAL COMMENTS - FREE TEXT/NARRATIVE: 40-year-old female presents emergency department day complaint of high blood pressure, she is not having any pain not having any anxiety was at the dentist office noted to have high blood pressure sent here for further evaluation, she was at the dentist office 2 weeks prior also had elevated blood pressure at that time systolically one fifties. She has no complaints she does not have a primary care - Related Data Allergies Allergy/AdvReac Type Severity Reaction Status Date / Time varenicline tartrate AdvReac Other Verified 12/27/20 13:37 [From Chantix] Home Meds: Home Meds Sertraline [Zoloft] 100 mg PO DAILY 07/27/17 [History] Aspirin/Caffeine [Bc Powder Packet] 1 pack PO ASDIRECTED PRN 10/16/19 [History] lisinopriL [Lisinopril] 10 mg PO DAILY #30 tablet 12/27/20 [Rx] Past Medical History HEENT History: Reports: Impaired Vision Respiratory History: Reports: Other (See Below) Other Respiratory History: Alpha-1 antitrypsin deficiency Gastrointestinal History: Reports: Cholelithiasis 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: Musculoskeletal History: Reports: Back Pain, Chronic, Other (See Below) Other Musculoskeletal History: chronic knee pain Neurological History: Reports: Concussion, Migraines Psychiatric History: Reports: Anxiety, Depression, Panic Attack Endocrine/Metabolic History: Reports: Obesity/BMI 30+ Immunologic History: Reports: Other (See Below) - Infectious Disease History Infectious Disease History: Reports: Chicken Pox - Past Surgical History Head Surgeries/Procedures: Reports: None HEENT Surgical History: Reports: None Respiratory Surgical History: Reports: None GI Surgical History: Reports: Cholecystectomy, Hernia Repair/Other Female Surgical History: Reports: Section, Tubal Ligation Endocrine Surgical History: Reports: None Neurological Surgical History: Reports: None Musculoskeletal Surgical History: Reports: Arthroscopic Knee, Arthroscopic Procedure, Ganglion Cyst Other Musculoskeletal Surgeries/Procedures:: "5 knee surgeries". Dermatological Surgical History: Reports: None Social & Family History - Family History Family Medical History: Unobtainable - Tobacco Use Tobacco Use Status *Q: Current Every Day Tobacco User Years of Tobacco use: 20 Packs/Tins Daily: 1 Used Tobacco, but Quit: No Second Hand Smoke Exposure: No - Caffeine Use Caffeine Use: Reports: Soda - Recreational Drug Use Recreational Drug Use: No - Living Situation & Occupation Living situation: Reports: with Significant Other, with Family Occupation: Employed (Lives with boyfriend and 2 children age 5 and 13 years old. Employed by [employer].) ED ROS GENERAL - Review of Systems Review Of Systems: See Below Constitutional: Reports: No Symptoms HEENT: Reports: No Symptoms Respiratory: Reports: No Symptoms Cardiovascular: Reports: No Symptoms GI/Abdominal: Reports: No Symptoms ED EXAM, GENERAL - Physical Exam Exam: See Below Exam Limited By: No Limitations General Appearance: Alert, WD/WN, No Apparent Distress Respiratory/Chest: No Respiratory Distress, Lungs Clear, Normal Breath Sounds, No Accessory Muscle Use, Chest Non-Tender Cardiovascular: Regular Rate, Rhythm, No Murmur GI/Abdominal: Soft, Non-Tender #1 Interpretation EKG Date: 12/27/20 Time: 14:42 Rhythm: NSR Paron: Normal P-Wave: Present QRS: Normal ST-T: Normal QT: Normal Comparison: No Change Course - Vital Signs Last Recorded V/S: Last Vital Signs Temp 97.7 F 12/27/20 13:38 Pulse 68 12/27/20 14:12 Resp 16 12/27/20 14:12 BP 175/100 H 12/27/20 14:37 Pulse Ox 97 12/27/20 14:12 - Orders/Labs/Meds Orders: Active Orders 24 hr Category Date Time Status EKG Documentation Completion [RC] ASDIRECTED Care 12/27/20 13:59 Active EKG 12 Lead [EK] Urgent Ther 12/27/20 13:57 Ordered Labs: Laboratory Tests 12/27/20 12/27/20 12/27/20 Range/Units 13:57 14:05 14:05 WBC 7.1 (4.5-11.0) K/uL RBC 4.39 (3.30-5.50) M/uL Hgb 9.0 L D (12.0-15.0) g/dL Hct 31.0 L (36.0-48.0) % MCV 71 L (80-98) fL MCH 21 L (27-31) pg MCHC 29 L (32-36) % Plt Count 254 (150-400) K/uL Neut % (Auto) 67.0 H (36-66) % Lymph % (Auto) 24.3 (24-44) % [place] % (Auto) 4.8 (2-6) % Eos % (Auto) 3.8 (2-4) % Baso % (Auto) 0.1 (0-1) % Sodium 139 L (140-148) mmol/L Potassium 3.3 L (3.6-5.2) mmol/L Chloride 102 (100-108) mmol/L Carbon Dioxide 23 (21-32) mmol/L Anion Gap 17.3 H (5.0-14.0) mmol/L BUN 4 L (7-18) mg/dL Creatinine 0.6 (0.6-1.0) mg/dL Est Cr Clr Drug Dosing 100.55 mL/min Estimated GFR (MDRD) > 60 (>60) Glucose 90 (74-106) mg/dL Calcium 8.2 L (8.5-10.1) mg/dL Urine Color Yellow (YELLOW) Urine Appearance Clear (CLEAR) Urine pH 6.0 (5.0-8.0) Ur Specific [place] 1.015 (1.008-1.030) Urine Protein Negative (NEGATIVE) mg/dL Urine Glucose (UA) Negative (NEGATIVE) mg/dL Urine Ketones Negative (NEGATIVE) mg/dL Urine Occult Blood Negative (NEGATIVE) Urine Nitrite Negative (NEGATIVE) Urine Bilirubin Negative (NEGATIVE) Urine Urobilinogen 0.2 (0.2-1.0) EU/dL Ur Leukocyte Esterase Trace H (NEGATIVE) Urine RBC 0-5 (0-5) Urine WBC 0-5 (0-5) Ur Epithelial Cells Rare Amorphous Sediment Not seen Urine Bacteria Few Urine Mucus Not seen Meds: Medications Discontinued Medications Generic Name Dose Route Start Last Admin Trade Name Freq PRN Reason Stop Dose Admin Lisinopril 10 mg 12/27/20 14:02 12/27/20 14:37 Lisinopril 10 Mg Tab PO 12/27/20 14:03 10 mg ONETIME ONE Administration Departure - Departure Time of Disposition: 14:52 Disposition: Home, Self-Care 01 Condition: Fair Clinical Impression: Essential hypertension Prescriptions: lisinopriL [Lisinopril] 10 mg PO DAILY #30 tablet Instructions: Preventing Hypertension Referrals: PCP,None [Primary Care Provider] - Forms: ED Department Discharge Additional Instructions: Start the lisinopril 1 tablet daily, try and monitor your salt intake, please follow-up with your primary care physician in the next 1 to 2 weeks for reevaluation of blood pressure call or return to the emergency department worsening of symptoms Sepsis Event Note (ED) - Evaluation Sepsis Screening Result: No Definite Risk - Focused Exam Vital Signs: Vital Signs Temp Pulse Resp BP BP Pulse Ox 12/27/20 14:37 175/100 H 12/27/20 14:12 68 16 172/95 H 97 12/27/20 13:57 71 20 184/99 H 12/27/20 13:42 68 21 H 173/99 H 97 12/27/20 13:38 97.7 F 68 16 186/97 H 98 12/27/20 13:28 66 23 H 184/92 H 98 12/27/20 13:02 97.7 F 68 16 186/97 H 98 - My Orders Last 24 Hours: My Active Orders 12/27/20 13:57 EKG 12 Lead [EK] Urgent 12/27/20 13:59 EKG Documentation Completion [RC] ASDIRECTED - Assessment/Plan Last 24 Hours: My Active Orders 12/27/20 13:57 EKG 12 Lead [EK] Urgent 12/27/20 13:59 EKG Documentation Completion [RC] ASDIRECTED Plan: Assessment Acuity = acute Site and laterality = essential hypertension Etiology = unknown Manifestations = none Location of injury = Home Lab values = 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
[2020-12-27 14:19] VITALS: PULSE 68
[2020-12-27 14:38] VITALS: BP 175/100
== END 2020-12-27 15:00 | disposition home or self-care (01) ==
LOC: JP.ED 12:37
DX: I10 Essential (primary) hypertension (principal); E66.9 Obesity, unspecified; Z68.32 Body mass index [BMI] 32.0-32.9, adult; Z88.8 Allergy status to other drugs, medicaments and biological substances; Z79.82 Long term (current) use of aspirin; Z79.899 Other long term (current) drug therapy; Z72.0 Tobacco use
CPT/HCPCS: 36415; 80048; 81001; 85025; 93005; 99283; A9270

== ENCOUNTER 2024-04-16 11:17 | Emergency (ER) | payer MEDICAID ==
[2024-04-16 12:07] LABS: BASOPHILS ABSOLUTE AUTO 0.03 K/uL (0.00-0.10); BASOPHILS PERCENT AUTO 0.4 % (0.1-1.3); EOSINOPHILS ABSOLUTE AUTO 0.21 K/uL (0.00-0.40); EOSINOPHILS PERCENT AUTO 2.6 % (0.0-5.4); HEMATOCRIT 39.8 % (34.3-46.0); HEMOGLOBIN 14.1 g/dL (11.2-15.5); IMMATURE GRAN PERCENT AUTO 0.3 % (0.0-0.7); LYMPHOCYTES ABSOLUTE AUTO 2.03 K/uL (0.8-3.3); LYMPHOCYTES PERCENT AUTO 25.4 % (11.4-47.7); MEAN CORPUSCULAR HEMOGLOBIN 30.9 pg (31.6-35.5); MEAN CORPUSCULAR HGB CONC 35.4 g/dL (31.6-35.5); MEAN CORPUSCULAR VOLUME 87.3 fL (81.4-99.0); MONOCYTES ABSOLUTE AUTO 0.42 K/uL (0.20-0.90); MONOCYTES PERCENT AUTO 5.3 % (3.3-12.6); NEUTROPHILS ABSOLUTE AUTO 5.27 K/uL (1.0-7.6); PLATELET COUNT,PLT 188 K/uL (130-375); RED BLOOD CELL COUNT 4.56 M/uL (3.77-5.24)
[2024-04-16 12:08] LABS: IMMATURE GRAN ABSOLUTE AUTO 0.02 K/uL (0.00-0.23)
[2024-04-16 12:28] LABS: INR 1.1; PROTHROMBIN TIME 10.9 sec (9.2-10.6)
[2024-04-16 12:39] LABS: A/G RATIO 1.3 (1.2-2.2); ALANINE AMINOTRANSFERASE,ALT 14 U/L (12-78); ALKALINE PHOSPHATASE 58 U/L (46-116); ASPARTATE AMNIOTRANSFERASE,AST 19 U/L (15-37); BILIRUBIN TOTAL 0.5 mg/dL (0.2-1.0); BLOOD UREA NITROGEN,BUN 5 mg/dL (7-18); CARBON DIOXIDE,CO2 22 mmol/L (21-32); CHLORIDE,CL 101 mmol/L (100-108); CREATININE 0.7 mg/dL (0.6-1.0); ESTIMATED GFR 111 mL/min (>60); GLUCOSE RANDOM 107 mg/dL (74-106); PRO B-TYPE NATRIUR PEPT,BNPPRO 246 pg/mL (5-125); PROTEIN TOTAL,TP 7.2 g/dL (6.4-8.2); SODIUM,NA 137 mmol/L (140-148)
[2024-04-16 12:40] LABS: TROPONIN I HIGH SENSITIVITY < 4.0 pg/mL (<=60.3)
[2024-04-16 13:07] VITALS: BP 150/93; PULSE 57
[2024-04-16 13:19] LABS: APPEARANCE,URINE CLEAR (CLEAR); BILIRUBIN,URINE NEGATIVE (NEGATIVE); COLOR,URINE YELLOW (YELLOW); GLUCOSE,URINE NEGATIVE (NEGATIVE); KETONES,URINE NEGATIVE (NEGATIVE); LEUKOCYTE ESTERASE,URINE NEGATIVE (NEGATIVE); NITRITE,URINE NEGATIVE (NEGATIVE); OCCULT BLOOD,URINE NEGATIVE (NEGATIVE); PROTEIN,URINE NEGATIVE (NEGATIVE); UROBILINOGEN,URINE 0.2 EU/dL (0.2-1.0)
[2024-04-16 13:21] LABS: CORONAVIRUS COVID-19 NAA NEGATIVE (NEGATIVE); INFLUENZA A NAA NEGATIVE (NEGATIVE); INFLUENZA B NAA NEGATIVE (NEGATIVE); RESPIRATORY SYNCYTIAL VIR NAA NEGATIVE (NEGATIVE)
[2024-04-16 13:25] LABS: AMORPHOUS SEDIMENT,URINE NOT SEEN; BACTERIA,URINE RARE; EPITHELIAL CELLS,URINE FEW; MUCUS,URINE RARE; RBC,URINE 0-5 (0-5); WBC,URINE 0-5 (0-5)
== END 2024-04-16 13:43 | disposition home or self-care (01) ==
LOC: JP.ED 11:17
DX: R07.2 Precordial pain (principal); E87.6 Hypokalemia; E66.9 Obesity, unspecified; Z88.8 Allergy status to other drugs, medicaments and biological substances; Z79.82 Long term (current) use of aspirin; Z79.899 Other long term (current) drug therapy; Z90.49 Acquired absence of other specified parts of digestive tract; Z68.24 Body mass index [BMI] 24.0-24.9, adult; R06.89 Other abnormalities of breathing
CPT/HCPCS: 0241U; 36415; 71045; 80053; 81001; 83605; 83880; 84145; 84484; 85025; 85379; 85610; 93005; 99285; 93010

== ENCOUNTER 2024-12-07 09:25 | Emergency (ER) | payer SELFPAY ==
[2024-12-07 09:56] VITALS: BP 144/79; PULSE 69
[2024-12-07 10:25] LABS: BASOPHILS ABSOLUTE AUTO 0.04 K/uL (0.00-0.10); BASOPHILS PERCENT AUTO 0.3 % (0.1-1.3); EOSINOPHILS ABSOLUTE AUTO 0.18 K/uL (0.00-0.40); EOSINOPHILS PERCENT AUTO 1.6 % (0.0-5.4); HEMATOCRIT 42.8 % (34.3-46.0); HEMOGLOBIN 14.6 g/dL (11.2-15.5); IMMATURE GRAN ABSOLUTE AUTO 0.07 K/uL (0.00-0.23); IMMATURE GRAN PERCENT AUTO 0.6 % (0.0-0.7); LYMPHOCYTES ABSOLUTE AUTO 1.89 K/uL (0.8-3.3); LYMPHOCYTES PERCENT AUTO 16.5 % (11.4-47.7); MEAN CORPUSCULAR HEMOGLOBIN 30.5 pg (31.6-35.5); MEAN CORPUSCULAR HGB CONC 34.1 g/dL (31.6-35.5); MEAN CORPUSCULAR VOLUME 89.4 fL (81.4-99.0); MONOCYTES ABSOLUTE AUTO 0.88 K/uL (0.20-0.90); MONOCYTES PERCENT AUTO 7.7 % (3.3-12.6); NEUTROPHILS ABSOLUTE AUTO 8.42 K/uL (1.0-7.6); NEUTROPHILS PERCENT AUTO 73.3 % (40.0-78.1); PLATELET COUNT,PLT 275 K/uL (130-375); RED BLOOD CELL COUNT 4.79 M/uL (3.77-5.24); WHITE BLOOD CELL COUNT,WBC 11.5 K/uL (3.2-11.0)
[2024-12-07] MEDS: Sodium Chloride 0.9% 1,000 ML IV STA (10:40)
[2024-12-07] MEDS: Ketorolac 30 MG/ML SDV IVPUSH ONE (10:47)
[2024-12-07] MEDS: Ondansetron 4 MG/2 ML SDV IVPUSH ONE (10:48)
[2024-12-07 10:52] LABS: A/G RATIO 1.1 (1.2-2.2); ALANINE AMINOTRANSFERASE,ALT 13 U/L (12-78); ALBUMIN 3.7 g/dL (3.4-5.0); ALKALINE PHOSPHATASE 69 U/L (46-116); ASPARTATE AMNIOTRANSFERASE,AST 12 U/L (15-37); BILIRUBIN TOTAL 0.7 mg/dL (0.2-1.0); BLOOD UREA NITROGEN,BUN 9 mg/dL (7-18); CALCIUM 9.1 mg/dL (8.5-10.1); CARBON DIOXIDE,CO2 27 mmol/L (21-32); CHLORIDE,CL 103 mmol/L (100-108); CREATININE 0.7 mg/dL (0.6-1.0); ESTIMATED GFR 111 mL/min (>60); GLUCOSE RANDOM 95 mg/dL (74-106); POTASSIUM,K 3.3 mmol/L (3.6-5.2); PROTEIN TOTAL,TP 7.1 g/dL (6.4-8.2); SODIUM,NA 139 mmol/L (140-148)
[2024-12-07 10:58] LABS: ANION GAP 12.3 mmol/L (5.0-14.0)
[2024-12-07 11:06] LABS: APPEARANCE,URINE CLEAR (CLEAR); BILIRUBIN,URINE NEGATIVE (NEGATIVE); COLOR,URINE YELLOW (YELLOW); GLUCOSE,URINE NEGATIVE (NEGATIVE); KETONES,URINE NEGATIVE (NEGATIVE); LEUKOCYTE ESTERASE,URINE NEGATIVE (NEGATIVE); NITRITE,URINE NEGATIVE (NEGATIVE); OCCULT BLOOD,URINE TRACE-INTACT (NEGATIVE); PROTEIN,URINE NEGATIVE (NEGATIVE); UROBILINOGEN,URINE 0.2 EU/dL (0.2-1.0)
[2024-12-07 11:08] LABS: AMORPHOUS SEDIMENT,URINE NOT SEEN; BACTERIA,URINE NOT SEEN; EPITHELIAL CELLS,URINE NOT SEEN; MUCUS,URINE NOT SEEN; RBC,URINE 0-5 (0-5); WBC,URINE 0-5 (0-5)
== END 2024-12-07 11:54 | disposition home or self-care (01) ==
LOC: JP.ED 09:25
DX: K52.9 Noninfective gastroenteritis and colitis, unspecified (principal); I10 Essential (primary) hypertension; E66.9 Obesity, unspecified; F17.210 Nicotine dependence, cigarettes, uncomplicated; Z88.8 Allergy status to other drugs, medicaments and biological substances; Z79.82 Long term (current) use of aspirin; Z79.899 Other long term (current) drug therapy; Z68.24 Body mass index [BMI] 24.0-24.9, adult
CPT/HCPCS: 36415; 80053; 81001; 85025; 96361; 96374; 96375; 99284; J1885; J2405; J7030

== ENCOUNTER 2025-03-03 11:46 | Emergency (ER) | payer SELFPAY ==
[2025-03-03 13:14] LABS: BASOPHILS ABSOLUTE AUTO 0.04 K/uL (0.00-0.10); BASOPHILS PERCENT AUTO 0.4 % (0.1-1.3); EOSINOPHILS ABSOLUTE AUTO 0.39 K/uL (0.00-0.40); EOSINOPHILS PERCENT AUTO 4.4 % (0.0-5.4); IMMATURE GRAN PERCENT AUTO 0.2 % (0.0-0.7); LYMPHOCYTES ABSOLUTE AUTO 2.63 K/uL (0.8-3.3); LYMPHOCYTES PERCENT AUTO 29.4 % (11.4-47.7); MONOCYTES ABSOLUTE AUTO 0.58 K/uL (0.20-0.90); MONOCYTES PERCENT AUTO 6.5 % (3.3-12.6); NEUTROPHILS ABSOLUTE AUTO 5.28 K/uL (1.0-7.6); NEUTROPHILS PERCENT AUTO 59.1 % (40.0-78.1); PLATELET COUNT,PLT 250 K/uL (130-375); RED BLOOD CELL COUNT 4.65 M/uL (3.77-5.24); WHITE BLOOD CELL COUNT,WBC 8.9 K/uL (3.2-11.0)
[2025-03-03 13:21] LABS: IMMATURE GRAN ABSOLUTE AUTO 0.02 K/uL (0.00-0.23)
[2025-03-03 13:36] LABS: A/G RATIO 1.1 (1.2-2.2); ALANINE AMINOTRANSFERASE,ALT 15 U/L (12-78); ASPARTATE AMNIOTRANSFERASE,AST 14 U/L (15-37); BILIRUBIN TOTAL 0.2 mg/dL (0.2-1.0); BLOOD UREA NITROGEN,BUN 13 mg/dL (7-18); CARBON DIOXIDE,CO2 29 mmol/L (21-32); CHLORIDE,CL 102 mmol/L (100-108); CREATININE 0.6 mg/dL (0.6-1.0); EST CRCL DRUG DOSING (CG) 91.23 mL/min; ESTIMATED GFR 114 mL/min (>60); GLUCOSE RANDOM 104 mg/dL (74-106); POTASSIUM,K 3.9 mmol/L (3.6-5.2); PROTEIN TOTAL,TP 7.4 g/dL (6.4-8.2); SODIUM,NA 136 mmol/L (140-148)
[2025-03-03 13:39] LABS: LACTIC ACID 0.6 mmol/L (0.4-2.0)
[2025-03-03 13:58] LABS: APPEARANCE,URINE CLEAR (CLEAR); GLUCOSE,URINE NEGATIVE (NEGATIVE); OCCULT BLOOD,URINE TRACE-INTACT (NEGATIVE)
[2025-03-03] MEDS: Ketorolac 15 MG/ML SDV IM ONE (13:58)
[2025-03-03 14:12] LABS: SQUAMOUS EPITHELIAL CELLS,UR MANY /HPF; UROTHELIAL CELLS,URINE NOT SEEN /HPF
[2025-03-03] MEDS: Ondansetron 4 MG Tab.DIS PO ONE (14:18)
[2025-03-03 14:40] VITALS: PULSE 66
[2025-03-03 15:03] VITALS: BP 129/75
== END 2025-03-03 15:26 | disposition home or self-care (01) ==
LOC: JP.ED 11:46
DX: K29.80 Duodenitis without bleeding (principal); K27.9 Peptic ulcer, site unspecified, unspecified as acute or chronic, without hemorrhage or perforation; Z90.49 Acquired absence of other specified parts of digestive tract; Z88.8 Allergy status to other drugs, medicaments and biological substances; E66.9 Obesity, unspecified; Z79.899 Other long term (current) drug therapy; I10 Essential (primary) hypertension
CPT/HCPCS: 36415; 76700; 80053; 81001; 83605; 85025; 96372; 99284; A9270; J1885; Q0162

== ENCOUNTER 2025-05-05 12:19 | Emergency (ER) | payer SELFPAY ==
[2025-05-05 12:54] VITALS: BP 120/78; PULSE 64
== END 2025-05-05 15:12 | disposition home or self-care (01) ==
LOC: JP.ED 12:19
DX: S89.91XA Unspecified injury of right lower leg, initial encounter (principal); I10 Essential (primary) hypertension; E66.9 Obesity, unspecified; F17.200 Nicotine dependence, unspecified, uncomplicated; Z68.22 Body mass index [BMI] 22.0-22.9, adult; Z90.49 Acquired absence of other specified parts of digestive tract; Z88.8 Allergy status to other drugs, medicaments and biological substances; Z79.82 Long term (current) use of aspirin; Z79.899 Other long term (current) drug therapy; X50.1XXA Overexertion from prolonged static or awkward postures, initial encounter
CPT/HCPCS: 73562-26-RT; 73562-RT; 99283